=== PATIENT | female | born 1940 | race Caucasian/White ===

== ENCOUNTER → 2017-11-24 | Day surgery (SDC) | payer OTHER ==
[2017-11-07 15:52] VITALS: BMI 43.0
--- NOTE | 2017-11-10 09:23 | PAT Medication Instructions ---
Service Date Nov 10, 2017. Current Home Medication List Acetaminophen (Tylenol), 650 MG PO Q6 PRN for Pain Aspirin Enteric Coated (Ecotrin Or Generic), 81 MG PO DAILY Atorvastatin (Lipitor), 80 MG PO HS Cholecalciferol (Vitamin D 1000 Unit), 1,000 INTER.UNIT PO DAILY Citalopram Hydrobromide (Celexa), 20 MG PO DAILY Cyanocobalamin (Vitamin B12), 1 TAB PO QAM Ipratropium-Albuterol (Duoneb), 1 TREATMENT INH Q4H PRN for SOB/Wheezing Levothyroxine Sodium (Levothyroxine Sodium), 1 TAB PO QAM Metoprolol Succinate (Toprol Xl), 12.5 MG PO QAM Miconazole Nitrate (Desenex Shake Powder), 1 APPLN TOP UD Mirtazapine Soltab (Remeron Soltab), 7.5 MG PO HS Multivitamins/Minerals (Mvi With Minerals), 1 TAB PO DAILY Omeprazole (Prilosec), 1 CAP PO DAILY Rivastigmine Tartrate (Exelon), 1 PATCH TOP QAM Warfarin Sod (Jantoven), 2 MG PO MWF Warfarin Sodium (Coumadin), 1 MG PO SUN, T,R,SAT Medication Instructions For Your Scheduled Surgery -Instructions per PCP and surgeon: Aspirin Enteric Coated (Ecotrin Or Generic), 81 MG PO DAILY Warfarin Sod (Jantoven), 2 MG PO MWF Warfarin Sodium (Coumadin), 1 MG PO SUN, T,R,SAT - Hold the following medications 24 hours prior to surgery: Miconazole Nitrate (Desenex Shake Powder), 1 APPLN TOP UD - Take the following medications the morning of surgery with a sip of water: Acetaminophen (Tylenol), 650 MG PO Q6 PRN for Pain (if needed, may be taken up to four hours before surgery) Citalopram Hydrobromide (Celexa), 20 MG PO DAILY Cholecalciferol (Vitamin D 1000 Unit), 1,000 INTER.UNIT PO DAILY Cyanocobalamin (Vitamin B12), 1 TAB PO QAM Ipratropium-Albuterol (Duoneb), 1 TREATMENT INH Q4H PRN for SOB/Wheezing (if needed) Levothyroxine Sodium (Levothyroxine Sodium), 1 TAB PO QAM Metoprolol Succinate (Toprol Xl), 12.5 MG PO QAM Multivitamins/Minerals (Mvi With Minerals), 1 TAB PO DAILY Omeprazole (Prilosec), 1 CAP PO DAILY Rivastigmine Tartrate (Exelon), 1 PATCH TOP QAM - Take the following medications as scheduled the night before surgery: Acetaminophen (Tylenol), 650 MG PO Q6 PRN for Pain (if needed) Atorvastatin (Lipitor), 80 MG PO HS Ipratropium-Albuterol (Duoneb), 1 TREATMENT INH Q4H PRN for SOB/Wheezing (if needed) Mirtazapine Soltab (Remeron Soltab), 7.5 MG PO HS If you have any questions please call us at [phone] or [phone] or [phone]
[2017-11-10 10:17] LABS: BASO ABS # 0.08 K/uL (0-0.2); EOS % 8.3 %; HEMATOCRIT 34.9 % (37-47); HEMOGLOBIN 11.2 g/dL (12.0-16.0); IG# 0.01 K/uL (0.00-0.02); LYMPH % 28.7 %; LYMPH ABS # 2.41 K/uL (1.2-3.4); MEAN CELL VOLUME 96.1 fL (80-100); MEAN CORPUSCULAR HEMOGLOBIN 30.9 pg (25-34); MEAN CORPUSCULAR HGB CONC 32.1 g/dl (32-36); MEAN PLATELET VOLUME 10.2 fL (7.4-10.4); MONO % 7.4 %; MONO ABS # 0.62 K/uL (0.11-0.59); NEUT % 54.5 %; NEUT ABS # 4.59 K/uL (1.4-6.5); PLATELET COUNT 272 K/uL (130-400); RED CELL DISTRIBUTION WIDTH CV 14.9 % (11.5-14.5); RED CELL DISTRIBUTION WIDTH SD 51.5 fL (36.4-46.3); WHITE BLOOD COUNT 8.41 K/uL (4.8-10.8)
[2017-11-10 10:26] LABS: CALCIUM 8.5 mg/dl (8.5-10.1); CREATININE 2.49 mg/dl (0.60-1.20); POTASSIUM 4.5 mmol/L (3.5-5.1)
[~2017-11-24] VITALS: Ht 165.1 cm; Wt 117.6 kg
[~2017-11-24] MED LIST: ACET-1311 PO; ASPI-319 PO; ATOR-26 PO; CHOL100027 PO; CIPROFLOXACIN / D5W 400 MG IV SCH; CITA20TA9 PO; CYAN100020 PO; EXLP95 TOP; GENTAMICIN INJ 80 MG in DEXTROSE 5% 100ML 100 ML IV SCH; IPRA-64 INH; LEVO25TA5 PO; MCTP/85 TOP; METO25TA4 PO; MIRT15TA2 PO; MULTTAB PO; OMEP20CA9 PO; SODIUM CHLORIDE 0.9% 1000ML 1,000 ML IV SCH; WARF1TAB PO; WARF2TAB8 PO
--- NOTE | 2017-11-24 11:30 | History & Physical Bridge Note ---
H&P Re-Evaluation Bridge Note: I have examined the patient, reviewed the History & Physical and in the interval since the performance of the History & Physical I have noted the following changes of clinical significance: No changes noted
[2017-11-24 11:43] VITALS: BP 128/66; PULSE 70; TEMP 36.5; Ht 165.1 cm; Wt 117.6 kg
[2017-11-24 12:53] LABS: PTT PATIENT 41.1 SECONDS (21.0-31.0)
[2017-11-24 12:54] LABS: INR 4.2 (0.9-1.1)
--- NOTE | 2017-11-24 13:50 | Anesthesiology Progress Note ---
Anesthesia Progress Note Date of Service Nov 24, 2017. 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 She was scheduled for cysto/ureteronephroscopy, later lithotripsy and stent exchange with Dr. Wagoner today. She was admitted with septic shock and hydronephropsis secondary to an obstructive stone and the UVJ at the end of August. The patient has been on ASA and Coumadin for her atrial fibrillation and history of CVA. She was seen preoperatively by Dr. Altamirano at [facility] where she is a resident. He had placed specific orders for her Coumadin and ASA to be held one week before surgery and for her to be bridged with Lovenox. Unfortunately these orders were not carried out by the jail staff and her Coumadin has not been held. The patient's INR this am was 4.3. I spoke to the PA at [facility] and made her aware that the orders were not carried out. Dr. Wagoner was informed and has decided to reschedule surgery on one to two weeks. He stated that his office will again contact the jail to make sure they follow the orders next time. and I spoke to the patient and her daughter who is her POA and was at bedside and explained why the procedure was being rescheduled. They understand and were agreeable.
== END | disposition home or self-care (01) ==
LOC: C.ACU 10:54
PROVIDERS: ATTEND Urology
DX: N39.0 Urinary tract infection, site not specified (principal); Z53.9 Procedure and treatment not carried out, unspecified reason

== ENCOUNTER 2019-01-08 16:39 | Inpatient (IN) ==
[2019-01-08] MEDS ORDERED: SODIUM CHLORIDE 0.9% 500 ML IV SCH (17:00)
--- NOTE | 2019-01-08 17:20 | XRay Report ---
SINGLE VIEW CHEST CLINICAL HISTORY: Generalized weakness. FINDINGS: An AP, portable, upright chest radiograph is compared to study dated 12/02/2017 and correlat ed with chest CT dated 08/27/2017. The examination is degraded by portable technique and patient rotat ion. The heart is enlarged noting atherosclerotic calcification of the thoracic aorta. There is mild pulmonary vascular congestion. There are small pleural effusions with bibasilar consolidation. No pne umothorax is seen. The skeletal structures are osteopenic. The bony thorax is grossly intact. IMPRESSION: 1. Cardiomegaly with evidence of mild congestive failure. 2. Small pleural effusions with bibasilar consolidation. This could represent atelectasis versus pneu monia/aspiration pneumonitis. Clinical correlation will be required. Electronically signed by: Juan Ramon Rg M.D. 01/08/2019 5:19 PM
[2019-01-08 19:10] LABS: Basophils # (auto) 0.04 K/uL (0-0.2); Basophils % (auto) 0.4 %; Eosinophils # (auto) 0.14 K/uL (0-0.5); Eosinophils % (auto) 1.5 %; Hematocrit (blood only) 35.4 % (37-47); Hemoglobin 11.9 g/dL (12.0-16.0); Immature Granulocytes # (auto) 0.02 K/uL (0.00-0.02); Immature Granulocytes % (auto) 0.2 %; Mean Corpuscular Hemoglobin 31.9 pg (25-34); Mean Corpuscular Hgb Conc 33.6 g/dL (32-36); Mean Corpuscular Volume 94.9 fL (80-100); Mean Platelet Volume 9.6 fL (7.4-10.4); Monocytes # (auto) 0.77 K/uL (0.11-0.59); Monocytes % (auto) 8.1 %; Neutrophils # (auto) 6.78 K/uL (1.4-6.5); Neutrophils % (auto) 71.8 %; Platelet Count 214 K/uL (130-400); RDW Coefficient of Variation 13.6 % (11.5-14.5); RDW Standard Deviation 46.5 fL (36.4-46.3); Red Blood Count 3.73 M/uL (4.2-5.4); White Blood Count 9.45 K/uL (4.8-10.8)
[2019-01-08 19:27] LABS: Prothrombin Time 19.8 Seconds (9.0-12.0)
[2019-01-08 19:29] LABS: Alanine Aminotransferase 9 U/L (12-78); Aspartate Aminotransferase 10 U/L (15-37); BUN Creatinine Ratio 12.4 (10-20); Blood Urea Nitrogen 23 mg/dl (7-18); Calcium 8.4 mg/dl (8.5-10.1); Carbon Dioxide 27 mmol/L (21-32); Chloride 108 mmol/L (98-107); Creatinine Clr Calc Pharmacy 25.7 ml/min; Est GFR (African American) 28.5; Est GFR (Non-African American) 24.6; Glucose 79 mg/dl (70-99); Magnesium 1.7 mg/dl (1.8-2.4); Potassium 4.1 mmol/L (3.5-5.1); Sodium 141 mmol/L (136-145)
[2019-01-08 19:40] LABS: Albumin Globulin Ratio 0.4 (0.9-2); Alkaline Phosphatase 73 U/L (45-117); Bilirubin,Total 0.6 mg/dl (0.2-1); Globulin 4.7 gm/dl (2.5-4.0); Total Protein 6.7 gm/dl (6.4-8.2); Troponin I < 0.015 ng/ml (0-0.045)
[2019-01-08 19:54] LABS: T4 Free Thyroxine 1.15 ng/dl (0.8-1.6)
--- NOTE | 2019-01-08 20:20 | CT Scan Report ---
CT SCAN OF THE BRAIN WITHOUT IV CONTRAST CLINICAL HISTORY: Blurry vision. COMPARISON STUDY: CT of the brain dated 09/12/2017. TECHNIQUE: Unenhanced axial CT scan of the brain is performed from the vertex to the skull base. A do se lowering technique was utilized adhering to the principles of ALARA. CT DOSE: 1290.93 mGy.cm FINDINGS: Brain parenchyma: There are age-related involutional changes noting moderate to advanced subcortical and periventricular microangiopathic change. Foci of right frontal encephalomalacia are unchanged an d consistent with remote infarcts. A chronic lacunar infarct is present in the right cerebellar hemis phere. There is no hemorrhage, mass effect, or evidence of acute territorial ischemia by CT criteria. Bridges-white matter differentiation is preserved. No extra-axial fluid collection is seen. Ventricles, sulci, cisterns: Prominent secondary to involutional change. Intracranial vasculature: There is atherosclerotic calcification of the cavernous carotid and vertebr al arteries. Calvarium: Unremarkable. Sinuses and mastoids: The visualized paranasal sinuses are clear. There is a right mastoid effusion. The left mastoid air cells are well pneumatized. Orbits: The bony orbits are grossly intact. IMPRESSION: Senescent change and remote infarcts as above. There is no hemorrhage, mass effect, or ev idence of acute territorial ischemia by CT criteria. Electronically signed by: Juan Ramon Rg M.D. 01/08/2019 8:19 PM
--- NOTE | 2019-01-08 21:10 | CT Scan Report ---
CT SCAN OF THE CHEST WITHOUT IV CONTRAST CLINICAL HISTORY: Gagging with eating. Aspiration. COMPARISON STUDY: Chest x-ray dated 01/08/2019. Chest CT dated 08/27/2017 TECHNIQUE: CT scan of the thorax was performed from the thoracic inlet to the upper abdomen. Images are reviewed in the axial, sagittal, and coronal planes. IV contrast was not administered for this ex amination as per the referring clinician. A dose lowering technique was utilized adhering to the loren mitchell of BEATRIZ. The examination is degraded by streak artifact from the arms which could not be alycia vated above the chest as well as by motion artifact. FINDINGS: Thyroid: Atrophic. Thoracic aorta: There is atherosclerotic calcification of the thoracic aorta, which is normal in elsie lorne and demonstrates bovine variant arch anatomy. Heart: The heart is enlarged and without pericardial effusion. There are coronary artery calcificatio ns. The pulmonary trunk is dilated, measuring 3.5 cm in diameter. This suggests pulmonary artery hype rtension. Lungs and pleural spaces: Evaluation of the lung parenchyma is degraded by motion artifact. There are moderate left and small right pleural effusions with associated bibasilar consolidation. Associated pleural thickening suggests chronicity, and the left pleural effusion is at least partially loculated . The left pleural effusion has increased in size as compared to 08/27/2017. There is near complete at electasis of the left lower lobe. Patchy groundglass consolidation is seen throughout the right upper , right middle, and right lower lobes. Subpleural scarring/atelectasis is noted in the lingula. The t rachea is clear. Secretions are noted in the left mainstem bronchus and the left lower lobe bronchi. Mediastinum: There are mildly enlarged mediastinal lymph nodes. A pretracheal node on image #[id number] measu res 1.6 cm in short axis. A subcarinal node measures 2.0 cm in short axis. Chasidy: Not well assessed without IV contrast. Axillae: There is no axillary lymphadenopathy. Upper abdomen: The gallbladder is mildly distended and small calcified gallstones are suggested. Skeletal structures: The skeletal structures are osteopenic. Degenerative change and hyperkyphosis ar e noted in the thoracic spine. Arthritic change is seen in the shoulders. No lytic or blastic bony le sions are seen. There are healed bilateral rib fractures. IMPRESSION: 1. Streak and motion compromised examination. 2. Cardiomegaly. 3. There are small right and moderate left pleural effusions with bilateral atelectasis. Associated p leural thickening suggests chronicity. The the right pleural effusion is partially loculated, and has increased in size from 08/27/2017. The sterility of these effusions cannot be assessed by CT. 4. Patchy airspace consolidation is seen throughout the right lung, likely representing an infectious /inflammatory pneumonitis. Clinical correlation will be required. 5. Secretions are noted in the left mainstem bronchus in the left lower lobe airways. Aspiration is n ot excluded. 6. Additional findings as above. Electronically signed by: Juan Ramon Rg M.D. 01/08/2019 9:08 PM
[2019-01-08] MEDS ORDERED: metroNIDAZOLE 500 MG/100 ML BAG IV STA (21:18)
[2019-01-08] MEDS ORDERED: CEFEPIME 1,000 MG in SYRINGE 0 ML IV STA (21:18)
--- NOTE | 2019-01-08 23:37 | Emergency Department Note ---
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 Per the nursing staff, the patients daughter called EMS for generalized weakness. The patient states that she is usually non-ambulatory. She denies any abdominal pain, headache, chest pain, or weakness or numbness in her arms or legs. She reports that she has a cough and has had a loss of appetite. She mentions that she does not take any blood thinners. Daughter notes that she has been aspirating while eating for the past 24 hours. She also notes the patient has been complaining of some blurry vision although the patient notes that this is been present for the past year. Patient does admit to some shortness of breath. Home Medications Home Medications Medication Instructions Recorded Confirmed Type Prilosec OTC 20 mg PO QAM 12/13/17 01/08/19 History acetaminophen [Tylenol] 325 mg PO Q6H PRN 12/13/17 01/08/19 History atorvastatin [Lipitor] 80 mg PO HS 12/13/17 01/08/19 History cholecalciferol (vitamin D3) 1,000 unit PO QAM 12/13/17 01/08/19 History [Vitamin D3] citalopram 20 mg PO QAM 12/13/17 01/08/19 History cyanocobalamin (vitamin B-12) 1,000 mcg PO QAM 12/13/17 01/08/19 History [Vitamin B-12] levothyroxine [Synthroid] 25 mcg PO QAM 12/13/17 01/08/19 History metoprolol succinate 12.5 mg PO DAILY 12/13/17 01/08/19 History mirtazapine [Remeron] 7.5 mg PO HS 12/13/17 01/08/19 History multivitamin 1 tab PO QAM 12/13/17 01/08/19 History rivastigmine [Exelon] 1 patch TRANSDERMAL QAM 12/13/17 01/08/19 History ferrous sulfate 325 mg PO BID 01/08/19 01/08/19 History omeprazole 40 mg PO BID 01/08/19 01/08/19 History ondansetron 4 mg PO Q6H PRN 01/08/19 01/08/19 History warfarin 1 mg PO WK 01/08/19 01/08/19 History warfarin 2 mg PO 6XWK 01/08/19 01/08/19 History Allergies Allergy/AdvReac Type Severity Reaction Status Date / Time Bactrim Allergy Unknown PER [facility], Verified 11/24/17 11:37 NO RXN PROVIDED mivacurium Allergy Unknown RASH Verified 12/13/17 09:51 Penicillins Allergy Unknown PER [facility], Verified 12/15/17 05:49 NO RXN PROVIDED sulfamethoxazole Allergy Unknown PER [facility], Verified 12/15/17 05:49 NO RXN PROVIDED trimethoprim Allergy Unknown PER [facility], Verified 12/15/17 05:49 NO RXN PROVIDED azithromycin Allergy Unknown Verified 12/15/17 05:49 Cipro AdvReac Mild "DELIRIUM" Verified 11/24/17 11:37 ciprofloxacin AdvReac Mild "DELIRIUM" Verified 12/15/17 05:49 Past Med/Surg History Medical History Atrial fibrillation Bacteremia Cerebral infarction Chronic kidney disease Depression Diabetes 1.5, managed as type 2 Essential (primary) hypertension GERD (gastroesophageal reflux disease) Intracranial pyogenic abscess Obesity (BMI 30-39.9) Orthostatic hypotension Osteoarthritis Surgical History History of esophagogastroduodenoscopy (EGD) History of lithotripsy Social History Preferred Language: Vietnamese Communication Ability: Impaired Visual Impairment: No Limitations Service Delivery Analyst Required: No Beliefs That Will Affect Care: None Current Living Situation: [facility] Feels Safe at Home: Yes Smoking Status: Never smoker Hx Alcohol Use: No Hx Substance Use: No Review of Systems See HPI for pertinent positives & negatives. and A total of 10 systems reviewed and were otherwise negative Physical Exam Vital Signs Vital Signs - 24 hr 01/08/19 16:58 01/08/19 17:01 01/08/19 18:47 Temperature 36.9 C Temperature Source Oral Sepsis Recent Fever Within 48 Hours No Sepsis New/Unexplained Change in Mental Status No Sepsis Action Taken by Nursing No Action Required Pulse Rate 54 L Pulse Rate [Apical] 74 Respiratory Rate 18 18 Respiratory Effort / Characteristics Non-Labored Spontaneous Respiratory Depth Normal Blood Pressure 129/60 Blood Pressure [Left Arm] 143/46 H Blood Pressure Mean 83 Blood Pressure Mean [Left Arm] 78 Pulse Oximetry 97 97 97 Oxygen Delivery Method Room Air Room Air Room Air 01/08/19 20:17 01/08/19 22:56 Temperature Temperature Source Sepsis Recent Fever Within 48 Hours Sepsis New/Unexplained Change in Mental Status Sepsis Action Taken by Nursing Pulse Rate Pulse Rate [Apical] 60 61 Respiratory Rate 20 18 Respiratory Effort / Characteristics Non-Labored Spontaneous Respiratory Depth Normal Normal Blood Pressure Blood Pressure [Left Arm] 139/48 L 119/53 L Blood Pressure Mean Blood Pressure Mean [Left Arm] 78 75 Pulse Oximetry 95 97 Oxygen Delivery Method Room Air Room Air GENERAL: chronically-ill, disheveled, hard of hearing, wearing gown EYE EXAM: normal conjunctiva OROPHARYNX: no exudate, no erythema, lips, buccal mucosa, and tongue normal and mucous membranes are moist NECK: supple, no nuchal rigidity, no adenopathy, non-tender LUNGS: Diminished breath sounds with mild rhonchi bilateral bases. Normal chest wall mechanics HEART: no murmurs, S1 normal and S2 normal ABDOMEN: abdomen soft, non-tender, normo-active bowel sounds, no masses, no rebound or guarding. BACK: Back is symmetrical on inspection and there is no deformity, no midline tenderness, no CVA tenderness. SKIN: no rashes and no bruising UPPER EXTREMITIES: upper extremities are grossly normal. LOWER EXTREMITIES: No pitting edema. NEURO EXAM: Oriented to person, place, but not year, cranial nerves II-XII intact, normal speech. No focal deficits for upper or lower extremities, but weak with movement. Course ED COURSE: Vital signs were reviewed and showed normotensive. The patients medical record was reviewed The above diagnostic studies were performed and reviewed. ED treatments and interventions as stated above. 1648: The patient was evaluated in room B10. A complete history and physical examination was performed. 1999: I reevaluated the patient and updated her family on her results, the patient can tolerate fluid, but gags when eating. 2123: I discussed the patient's case with Dr. Vinnie Schwartz Hospitalist, he will accept the patient for further evaluation. 2125: Upon reevaluation, the patient is resting comfortably. I discussed my findings with the patient's family and they understand and agree with the treatment plan. Based on the patients age, coexisting illnesses, exam and lab findings the decision to treat as an inpatient was made. The patient remained stable while under my care. The patient will be evaluated for further management. Administered Medications Discontinued Medications Sodium Chloride (Nss) 500 mls @ 999 mls/hr IV .Q31M MIRIAN Stop: 01/08/19 17:30 Last Infusion: 01/08/19 18:59 Dose: 0 mls/hr Documented by: [id number] Admin: 01/08/19 18:27 Dose: 999 mls/hr Documented by: [id number] Metronidazole (Flagyl) 500 mg in 100 mls @ 100 mls/hr IV NOW STA Stop: 01/08/19 22:17 Last Admin: 01/08/19 21:36 Dose: 100 mls/hr Documented by: [id number] Cefepime HCl 1,000 mg/ Syringe 11.3 mls @ 5.5 mls/min IV NOW STA; Protocol Stop: 01/08/19 21:20 Last Admin: 01/08/19 21:36 Dose: 5.5 mls/min Documented by: [id number] Medical Decision Making Differential Diagnosis Differential Diagnosis includes but is not limited to dehydration, stroke, anemia, hypoglycemia, hyponatremia, hypernatremia, urinary tract infection, pneumonia, bronchitis, sepsis, gastroenteritis, additional abdominal pathology, metabolic abnormalities and infections. Medical Records Attestation: I reviewed the patient's medical records. Home Medications Current Medication List: was personally reviewed by me Laboratory Data Attestation: I reviewed the patient's lab results. Result diagrams: 01/08/19 18:56 01/08/19 18:56 Lab Results 01/08/19 01/08/19 01/08/19 Range/Units 17:40 18:56 18:56 WBC 9.45 (4.8-10.8) K/uL RBC 3.73 L (4.2-5.4) M/uL Hgb 11.9 L (12.0-16.0) g/dL Hct 35.4 L (37-47) % MCV 94.9 (80-100) fL MCH 31.9 (25-34) pg MCHC 33.6 (32-36) g/dL RDW Std Deviation 46.5 H (36.4-46.3) fL RDW Coeff of Ankit 13.6 (11.5-14.5) % Plt Count 214 (130-400) K/uL MPV 9.6 (7.4-10.4) fL Immature Gran % (Auto) 0.2 % Neut % (Auto) 71.8 % Lymph % (Auto) 18.0 % Rapides % (Auto) 8.1 % Eos % (Auto) 1.5 % Baso % (Auto) 0.4 % Immature Gran # (Auto) 0.02 (0.00-0.02) K/uL Neut # (Auto) 6.78 H (1.4-6.5) K/uL Lymph # (Auto) 1.70 (1.2-3.4) K/uL Rapides # (Auto) 0.77 H (0.11-0.59) K/uL Eos # (Auto) 0.14 (0-0.5) K/uL Baso # (Auto) 0.04 (0-0.2) K/uL PT 19.8 H (9.0-12.0) Seconds INR 2.0 H (0.9-1.1) Sodium (136-145) mmol/L Potassium (3.5-5.1) mmol/L Chloride (98-107) mmol/L Carbon Dioxide (21-32) mmol/L Anion Gap (3-11) BUN (7-18) mg/dl Creatinine (0.6-1.2) mg/dl Est Cr Clr Drug Dosing ml/min Est GFR ( Amer) Est GFR (Non-Af Amer) BUN/Creatinine Ratio (10-20) Glucose (70-99) mg/dl Calcium (8.5-10.1) mg/dl Magnesium (1.8-2.4) mg/dl Total Bilirubin (0.2-1) mg/dl AST (15-37) U/L ALT (12-78) U/L Alkaline Phosphatase (45-117) U/L Troponin I (0-0.045) ng/ml Total Protein (6.4-8.2) gm/dl Albumin (3.4-5.0) gm/dl Globulin (2.5-4.0) gm/dl Albumin/Globulin Ratio (0.9-2) TSH (0.300-4.500) uIu/ml Free T4 (0.8-1.6) ng/dl Influenza Type A Ag Neg for Influ A (Neg) Influenza Type B Ag Neg for Influ B (Neg) 01/08/19 Range/Units 18:56 WBC (4.8-10.8) K/uL RBC (4.2-5.4) M/uL Hgb (12.0-16.0) g/dL Hct (37-47) % MCV (80-100) fL MCH (25-34) pg MCHC (32-36) g/dL RDW Std Deviation (36.4-46.3) fL RDW Coeff of Ankit (11.5-14.5) % Plt Count (130-400) K/uL MPV (7.4-10.4) fL Immature Gran % (Auto) % Neut % (Auto) % Lymph % (Auto) % Rapides % (Auto) % Eos % (Auto) % Baso % (Auto) % Immature Gran # (Auto) (0.00-0.02) K/uL Neut # (Auto) (1.4-6.5) K/uL Lymph # (Auto) (1.2-3.4) K/uL Rapides # (Auto) (0.11-0.59) K/uL Eos # (Auto) (0-0.5) K/uL Baso # (Auto) (0-0.2) K/uL PT (9.0-12.0) Seconds INR (0.9-1.1) Sodium 141 (136-145) mmol/L Potassium 4.1 (3.5-5.1) mmol/L Chloride 108 H (98-107) mmol/L Carbon Dioxide 27 (21-32) mmol/L Anion Gap 6.0 (3-11) BUN 23 H (7-18) mg/dl Creatinine 1.89 H (0.6-1.2) mg/dl Est Cr Clr Drug Dosing 25.7 ml/min Est GFR ( Amer) 28.5 Est GFR (Non-Af Amer) 24.6 BUN/Creatinine Ratio 12.4 (10-20) Glucose 79 (70-99) mg/dl Calcium 8.4 L (8.5-10.1) mg/dl Magnesium 1.7 L (1.8-2.4) mg/dl Total Bilirubin 0.6 (0.2-1) mg/dl AST 10 L (15-37) U/L ALT 9 L (12-78) U/L Alkaline Phosphatase 73 (45-117) U/L Troponin I < 0.015 (0-0.045) ng/ml Total Protein 6.7 (6.4-8.2) gm/dl Albumin 2.0 L (3.4-5.0) gm/dl Globulin 4.7 H (2.5-4.0) gm/dl Albumin/Globulin Ratio 0.4 L (0.9-2) TSH 4.530 H (0.300-4.500) uIu/ml Free T4 1.15 (0.8-1.6) ng/dl Influenza Type A Ag (Neg) Influenza Type B Ag (Neg) Imaging Data Radiologist's Impression: Radiology results as stated below per my review and the radiologist's interpretation: SINGLE VIEW CHEST CLINICAL HISTORY: Generalized weakness. FINDINGS: An AP, portable, upright chest radiograph is compared to study dated 12/02/2017 and correlated with chest CT dated 08/27/2017. The examination is degraded by portable technique and patient rotation. The heart is enlarged noting atherosclerotic calcification of the thoracic aorta. There is mild pulmonary vascular congestion. There are small pleural effusions with bibasilar consolidation. No pneumothorax is seen. The skeletal structures are osteopenic. The bony thorax is grossly intact. IMPRESSION: 1. Cardiomegaly with evidence of mild congestive failure. 2. Small pleural effusions with bibasilar consolidation. This could represent atelectasis versus pneumonia/aspiration pneumonitis. Clinical correlation will be required. Electronically signed by: Juan Ramon Rg M.D. 01/08/2019 5:[address] SCAN OF THE CHEST WITHOUT IV CONTRAST CLINICAL HISTORY: Gagging with eating. Aspiration. COMPARISON STUDY: Chest x-ray dated 01/08/2019. Chest CT dated 08/27/2017 TECHNIQUE: CT scan of the thorax was performed from the thoracic inlet to the upper abdomen. Images are reviewed in the axial, sagittal, and coronal planes. IV contrast was not administered for this examination as per the referring clinician. A dose lowering technique was utilized adhering to the principles of ALARA. The examination is degraded by streak artifact from the arms which could not be elevated above the chest as well as by motion artifact. FINDINGS: Thyroid: Atrophic. Thoracic aorta: There is atherosclerotic calcification of the thoracic aorta, which is normal in caliber and demonstrates bovine variant arch anatomy. Heart: The heart is enlarged and without pericardial effusion. There are coronary artery calcifications. The pulmonary trunk is dilated, measuring 3.5 cm in diameter. This suggests pulmonary artery hypertension. Lungs and pleural spaces: Evaluation of the lung parenchyma is degraded by motion artifact. There are moderate left and small right pleural effusions with associated bibasilar consolidation. Associated pleural thickening suggests chronicity, and the left pleural effusion is at least partially loculated. The left pleural effusion has increased in size as compared to 08/27/2017. There is near complete atelectasis of the left lower lobe. Patchy groundglass consolidation is seen throughout the right upper, right middle, and right lower lobes. Subpleural scarring/atelectasis is noted in the lingula. The trachea is clear. Secretions are noted in the left mainstem bronchus and the left lower lobe bronchi. Mediastinum: There are mildly enlarged mediastinal lymph nodes. A pretracheal node on image #98 measures 1.6 cm in short axis. A subcarinal node measures 2.0 cm in short axis. Chasidy: Not well assessed without IV contrast. Axillae: There is no axillary lymphadenopathy. Upper abdomen: The gallbladder is mildly distended and small calcified gallstones are suggested. Skeletal structures: The skeletal structures are osteopenic. Degenerative change and hyperkyphosis are noted in the thoracic spine. Arthritic change is seen in the shoulders. No lytic or blastic bony lesions are seen. There are healed bilateral rib fractures. IMPRESSION: 1. Streak and motion compromised examination. 2. Cardiomegaly. 3. There are small right and moderate left pleural effusions with bilateral atelectasis. Associated pleural thickening suggests chronicity. The the right pleural effusion is partially loculated, and has increased in size from 08/27/2017. The sterility of these effusions cannot be assessed by CT. 4. Patchy airspace consolidation is seen throughout the right lung, likely representing an infectious/inflammatory pneumonitis. Clinical correlation will be required. 5. Secretions are noted in the left mainstem bronchus in the left lower lobe airways. Aspiration is not excluded. 6. Additional findings as above. Electronically signed by: Juan Ramon Rg M.D. 01/08/2019 9:[address] SCAN OF THE BRAIN WITHOUT IV CONTRAST CLINICAL HISTORY: Blurry vision. COMPARISON STUDY: CT of the brain dated 09/12/2017. TECHNIQUE: Unenhanced axial CT scan of the brain is performed from the vertex to the skull base. A dose lowering technique was utilized adhering to the principles of ALARA. CT DOSE: 1290.93 mGy.cm FINDINGS: Brain parenchyma: There are age-related involutional changes noting moderate to advanced subcortical and periventricular microangiopathic change. Foci of right frontal encephalomalacia are unchanged and consistent with remote infarcts. A chronic lacunar infarct is present in the right cerebellar hemisphere. There is no hemorrhage, mass effect, or evidence of acute territorial ischemia by CT criteria. Bridges-white matter differentiation is preserved. No extra-axial fluid collection is seen. Ventricles, sulci, cisterns: Prominent secondary to involutional change. Intracranial vasculature: There is atherosclerotic calcification of the cavernous carotid and vertebral arteries. Calvarium: Unremarkable. Sinuses and mastoids: The visualized paranasal sinuses are clear. There is a right mastoid effusion. The left mastoid air cells are well pneumatized. Orbits: The bony orbits are grossly intact. IMPRESSION: Senescent change and remote infarcts as above. There is no hemorrhage, mass effect, or evidence of acute territorial ischemia by CT criteria. Electronically signed by: Juan Ramon Rg M.D. 01/08/2019 8:19 PM ECG Data Attestation: I personally reviewed and interpreted this ECG as follows: Indication: weakness Rate (beats per minute): 53 Rhythm: atrial fibrillation Findings: + other (normal axis, septal p waves) Comparison ECG Date: no prior available Blood Pressure Blood Pressure Findings: Low blood pressure Blood Pressure Disposition: further management by hospitalist RADHA Narrative Patient is an 78-year-old female who presents the ER who was at home with family for inability to eat for the past 24 hours as she has been choking on her food. She is able to tolerate liquids per daughter. Patient does admit to also a persistent cough. IV was established blood work was obtained. Labs show no significant leukocytosis but mild anemia. INR was therapeutic at 2. BMP with a creatinine of 1.89 improved from previous with her baseline around 2. Magnesium was slightly low 1.7. No transaminitis. TSH was slightly elevated. Influenza was negative. Chest x-ray with questionable effusions and CT shows pneumonitis with loculated effusions which I cannot rule out being infected although I favor this is unlikely as she is currently not that ill. Patient was covered with IV antibiotics. She is updated bedside. Updated the daughter as well and patient was discussed with the hospitalist for evaluation. Impression & Plan Pneumonia, Aspiration into airway, Loculated pleural effusion, Shortness of breath Discharge Plan Visit Data Chief Complaint: Illness Stated Complaint: FAILURE TO THRIVE, COUGH ED Provider: Frank Perkins Discharge Problem: Pneumonia, Aspiration into airway, Loculated pleural effusion, Shortness of breath Patient Disposition: Being Evaluated by Hospitalist Forms Stand Alone Forms: [facility] Prescriptions Prescriptions: No Action multivitamin Tablet 1 tab PO QAM RF: 0 atorvastatin [Lipitor] 80 mg Tablet 80 mg PO HS RF: 0 acetaminophen [Tylenol] 325 mg Tablet 325 mg PO Q6H PRN (Reason: Pain) RF: 0 cyanocobalamin (vitamin B-12) [Vitamin B-12] 1,000 mcg Tablet 1,000 mcg PO QAM RF: 0 levothyroxine [Synthroid] 25 mcg Tablet 25 mcg PO QAM RF: 0 citalopram 20 mg Tablet 20 mg PO QAM RF: 0 mirtazapine [Remeron] 15 mg Tablet 7.5 mg PO HS RF: 0 Prilosec OTC 20 mg Tablet,Delayed Release (Dr/Ec) 20 mg PO QAM RF: 0 cholecalciferol (vitamin D3) [Vitamin D3] 1,000 unit Tablet 1,000 unit PO QAM RF: 0 rivastigmine [Exelon] 4.6 mg/24 hr Patch 24 Hour 1 patch TRANSDERMAL QAM RF: 0 metoprolol succinate 25 mg Capsule,Sprinkle,Er 24hr 12.5 mg PO DAILY RF: 0 omeprazole 40 mg capsule,delayed release(DR/EC) 40 mg PO BID RF: 0 ferrous sulfate 325 mg (65 mg iron) tablet 325 mg PO BID RF: 0 warfarin 1 mg tablet 1 mg PO WK RF: 0 warfarin 1 mg tablet 2 mg PO 6XWK RF: 0 ondansetron 4 mg Tablet,Disintegrating 4 mg PO Q6H PRN (Reason: Nausea) RF: 0 Referrals Referrals: Christiano Bill MD [Primary Care Provider] - Discharge Problem: Pneumonia Qualifiers: Pneumonia type: due to unspecified organism Laterality: right Lung location: unspecified part of lung Qualified Code(s): J18.9 - Pneumonia, unspecified organism Aspiration into airway Qualifiers: Encounter type: initial encounter Qualified Code(s): T17.908A - Unspecified foreign body in respiratory tract, part unspecified causing other injury, initial encounter The scribe's documentation has been prepared under my direction and personally reviewed by me in its entirety. I confirm that the note above accurately reflects all work, treatment, procedures, and medical decision making performed by me.
[2019-01-09] MEDS ORDERED: LEVALBUTEROL 1.25MG/0.5ML NEB NEB PRN (01:17)
[2019-01-09] MEDS ORDERED: NITROGLYCERIN SL 0.4 MG/TAB TAB SL PRN (01:17)
[2019-01-09] MEDS ORDERED: ONDANSETRON INJ 2 MG/ML 2 ML VIAL IV PRN (01:17)
[2019-01-09] MEDS ORDERED: ACETAMINOPHEN 325 MG TAB PO PRN (01:17)
[2019-01-09] MEDS ORDERED: SODIUM CHLORIDE 0.9% 1000ML 1,000 ML IV SCH (01:17)
[2019-01-09] MEDS: methylPREDNISolone 40 MG in SYRINGE 0 ML IV SCH ×2 (02:17→07:48)
[2019-01-09] MEDS: metroNIDAZOLE 500 MG/100 ML BAG IV SCH ×3 (05:34→20:53)
[2019-01-09 05:52] LABS: Basophils # (auto) 0.02 K/uL (0-0.2); Basophils % (auto) 0.2 %; Eosinophils # (auto) 0.02 K/uL (0-0.5); Eosinophils % (auto) 0.2 %; Hemoglobin 11.7 g/dL (12.0-16.0); Immature Granulocytes # (auto) 0.01 K/uL (0.00-0.02); Immature Granulocytes % (auto) 0.1 %; Lymphocytes # (auto) 0.88 K/uL (1.2-3.4); Mean Corpuscular Hgb Conc 32.5 g/dL (32-36); Mean Corpuscular Volume 95.5 fL (80-100); Mean Platelet Volume 9.7 fL (7.4-10.4); Monocytes # (auto) 0.13 K/uL (0.11-0.59); Monocytes % (auto) 1.6 %; Neutrophils # (auto) 6.97 K/uL (1.4-6.5); Neutrophils % (auto) 86.9 %; Platelet Count 218 K/uL (130-400); RDW Coefficient of Variation 13.6 % (11.5-14.5); Red Blood Count 3.77 M/uL (4.2-5.4); White Blood Count 8.03 K/uL (4.8-10.8)
[2019-01-09 05:57] LABS: INR 1.9 (0.9-1.1); Prothrombin Time 18.2 Seconds (9.0-12.0)
[2019-01-09 06:08] LABS: Estimated Average Glucose 114 mg/dl; Hemoglobin A1C 5.6 % (4.5-5.6)
[2019-01-09] MEDS: LEVOTHYROXINE SODIUM 25 MCG TABLET PO SCH (06:23)
[2019-01-09 06:27] LABS: BUN Creatinine Ratio 12.6 (10-20); Calcium 8.5 mg/dl (8.5-10.1); Creatinine Clr Calc Pharmacy 25.6 ml/min; Est GFR (African American) 28.4; Est GFR (Non-African American) 24.5; Magnesium 1.7 mg/dl (1.8-2.4); Potassium 4.4 mmol/L (3.5-5.1)
[2019-01-09 06:46] LABS: Appearance Urine Turbid (Clear); Bilirubin Urine Negative (Negative); Blood Urine 2+ (Negative); Color Urine Dark Yellow; Glucose Urine UA Negative (Negative); Ketones Urine Negative (Negative); Leukocyte Esterase Urine 3+ (Negative); Nitrite Urine Positive (Negative); Protein Urine 1+ (Negative); Specific Gravity Urine 1.018 (1.000-1.030); Urobilinogen Urine Negative (Negative); WBC Urine Automated >30 /hpf (0-5)
[2019-01-09 07:09] LABS: Bacteria Urine Automated 1+ (Negative)
[2019-01-09] MEDS: MAGNESIUM SULFATE / D5W 1 GM/100 ML BAG IV SCH ×2 (07:47→09:03)
[2019-01-09] MEDS: METOPROLOL SUCC 25MG EXT REL TAB PO SCH (07:55)
[2019-01-09] MEDS: CITALOPRAM 20 MG TAB PO SCH (07:56)
--- NOTE | 2019-01-09 07:57 | History and Physical Report ---
DATE OF ADMISSION: 01/09/2019 CHIEF COMPLAINT: Shortness of breath, cough, aspiration. HISTORY OF PRESENT ILLNESS: This is an 78-year-old female with past medical history significant for hemiplegia affecting the right dominant side, currently nonambulatory status. She needs lift and wheelchair. Lives with her daughter. Type 2 diabetes, not on any medications, hypothyroidism, chronic atrial fibrillation on Coumadin, hypertension, obesity, GERD, depression, who presents with cough, shortness of breath, and aspiration. As per the daughter, since last night she is making sound when she is breathing and she has occasional cough. She complains of shortness of breath. She has choked on food a couple of times yesterday and today in the morning, she once choked on the jello, so she was brought in here. Imaging studies showing possible aspiration pneumonitis. Currently, the patient is saturating okay on room air, hemodynamics are stable. Denies any headache. Denies any chest pain or shortness of breath. Has some cough. . Denies any abdominal pain. Normal bowel and bladder movements as per daughter. The patient is oriented to name and place only. Hard of hearing. No recent fever, chills. Could not get a complete review of systems from the patient. ALLERGIES: PENICILLIN, ZITHROMAX, BACTRIM. PAST MEDICAL HISTORY: As mentioned above. PAST SURGICAL HISTORY: EGD, ligation of oviducts. MEDICATIONS: The patient is on citalopram 20 mg p.o. daily, levothyroxine 25 mcg p.o. daily, Toprol-XL 12.5 mg p.o. daily, Coumadin 2 mg every week on Mondays, Wednesdays, and Fridays, all other days 1 mg, ferrous sulfate 325 mg p.o. b.i.d., omeprazole 40 mg p.o. b.i.d., Lipitor 80 mg p.o. daily, Remeron 15 mg p.o. at bedtime, vitamin D 1000 units p.o. daily, Tylenol 650 mg p.o. 4 hours p.r.n., vitamin B12 1000 mcg daily, multivitamin 1 tablet p.o. daily. FAMILY HISTORY: No family history on file. SOCIAL HISTORY: Currently living with her daughter. No smoking, no alcohol, no drug use. REVIEW OF SYSTEMS: Could not get complete review of systems. PHYSICAL EXAMINATION: GENERAL: The patient is alert and awake and oriented to name and place, not in acute distress. VITAL SIGNS: Temperature 36.9, pulse 63, respiratory rate 18, blood pressure 123/49, oxygen 98% on room air. HEENT: No pallor, no icterus. Pupils equal, round, and reactive to light. NECK: No JVD, no neck masses, no carotid bruits. CARDIOVASCULAR: S1, S2 heard, regular rate and rhythm, no murmur, no gallop. RESPIRATORY SYSTEM: Normal AP diameter. No accessory muscle use. Bilateral rhonchi heard. ABDOMEN: Soft, bowel sounds present, nontender. No distention. CENTRAL NERVOUS SYSTEM: Alert and oriented x2. Moves upper extremities. EXTREMITIES: No edema, no erythema. LABORATORY DATA: WBC 9.4, hemoglobin 11.9, hematocrit 35.4, platelet count 214. PT 19.8, INR 2. Sodium 141, potassium 4.1, chloride 108, bicarbonate 27, BUN 23, creatinine 1.89, serum glucose 79, calcium 8.4, magnesium 1.7, total bilirubin 0.6, AST 10, ALT 9, alkaline phosphatase 73, troponin I less than 0.015. TSH 4.5, free T4 1.1. Influenza negative. IMAGING DATA: CT of the head, no acute findings seen. Chest CT, small right and moderate left pleural effusions with bilateral atelectasis, pleural thickening suggests chronicity. Right pleural effusion is partially loculated and has increased in size from 08/27/2017. The sterility of these effusions cannot be assessed by CT. Patchy airspace consolidation is seen throughout the right lung, likely representing infectious inflammatory pneumonitis. Secretions are noted in the left mainstem bronchus in the left lower airways. Aspiration is not excluded. Chest x-ray, cardiomegaly with evidence of mild CHF, pleural effusions with bibasilar consolidation. EKG: Atrial fibrillation with slow ventricular response at a rate of 53, nonspecific T-wave abnormality seen. ASSESSMENT AND PLAN: This 78-year-old female presents with cough, shortness of breath, and possible aspiration pneumonitis. 1. Aspiration pneumonitis.ER started on cefepime and Flagyl, which she will continue and consult pulmonary medicine as patient has loculated pleural effusions. We will keep her n.p.o. for now. Gentle fluids. Consult speech therapy in the a.m. Closely monitor in the med/surg tele. Hemodynamics are stable. 2. History of diabetes, not on medication. Currently n.p.o. We will follow HbA1c level. 3. History of atrial fibrillation, rate controlled with Toprol-XL. INR is 2.0 Follow the Coumadin levels. 4. History of stroke with hemiplegia. She has dementia and mostly is wheelchair bound. Needs a lift for placing in the wheelchair. Patient is on high-dose statin and Coumadin. Will monitor. 5. Patient has iron deficiency, is on iron supplements. 6. History of gastroesophageal reflux disease, on Prilosec. 7. History of hypertension, on Toprol-XL. Will monitor the blood pressure. 8. History of hypothyroidism, on Synthroid. 9. History of depression, on Celexa and Remeron. 10. History of chronic kidney disease stage IV, baseline creatinine of 1.9, presents with a creatinine of 1.9. We will follow the labs. 11. Deep venous thrombosis prophylaxis, on Coumadin. 12. Disposition: Admit to med/surg tele. Level 1 full code as per my discussion with the daughter for now. Social service to help with discharge planning. MTDD
[2019-01-09] MEDS: MULTIVITAMIN TAB PO SCH (09:12)
[2019-01-09] MEDS: PANTOprazole 40 MG TAB PO SCH ×2 (09:12→20:55)
[2019-01-09] MEDS: FERROUS SULFATE 325 MG TAB PO SCH ×2 (09:12→20:54)
[2019-01-09] MEDS: MICONAZOLE NITRATE POWDER 43 GM EXT SCH ×2 (09:12→20:54)
[2019-01-09] MEDS: CYANOCOBALAMIN 500 MCG TABLET (VITAMIN B-12) PO SCH (09:13)
[2019-01-09] MEDS: CHOLECALCIFEROL 1,000 UNITS TAB PO SCH (09:13)
--- NOTE | 2019-01-09 13:44 | Fluoroscopy Report ---
FL video swallow HISTORY: Dysphagia. Aspiration. TECHNIQUE: Video fluoroscopic evaluation of swallowing was performed in the AP and lateral projection s by the speech pathology staff. The patient is fed thin liquid barium, nectar thick liquid, pudding, or cracker with paste.. FLUOROSCOPY TIME: 1.9 minutes. NUMBER OF FLUOROSCOPY IMAGES: 0 COMPARISON STUDY: September 2011 FINDINGS: When performing single with serial swallows utilizing thin liquid barium there was penetrat ion but no evidence for aspiration. There was no aspiration with swallowing nectar thick liquid puddi ng or cracker with paste. IMPRESSION: 1. Penetration when swallowing thin liquids, but no evidence of aspiration. 2. Please see the speech pathologist report for detailed findings and recommendations. Electronically signed by: Butch Mcnulty M.D. 01/09/2019 1:43 PM
[2019-01-09] MEDS: CEFEPIME 2,000 MG in SYRINGE 7.5 ML IV SCH (14:34)
--- NOTE | 2019-01-09 14:47 | Hospitalist Progress Note ---
Date of Service January 09, 2019 Assessment & Plan (1) Pneumonia: Bilateral pleural effusions suspected congestive heart failure -This 78-year-old female presents with cough, shortness of breath, and pneumonia vs pneumonitis with pleural effusions -admission CT chest: small right and moderate left pleural effusions with bilateral atelectasis. Associated pleural thickening suggests chronicity. The the right pleural effusion is partially loculated, and has increased in size from 08/27/2017. The sterility of these effusions cannot be assessed by CT.Patchy airspace consolidation is seen throughout the right lung, likely representing an infectious/inflammatory pneumonitis. -patient was started on cefepime and Flagyl because of concern for aspiration pneumonia or pneumonitis -continue empirically for now -patient had video fluoroscopy performed on 01/09/19 and did not appear to have acute aspiration identified -patient has been able to breathe on room air at home and in the hospital -discussed the case with pulmonary consult Dr. Hurtado and he recommended cardiac workup given elevated BNP on admission -will order echocardiogram, start Lasix 40 mg IV daily Obesity with BMI 33.8 History of stroke -at rest, patient is bedbound or mobilizes with wheelchair -on coumadin -on statin chronic atrial fibrillation Hypertension history -on telemetry -heart rate is bradycardic -blood pressure is controlled -on metoprolol -on coumadin chronic kidney disease stage IV -baseline creatinine of 1.9 -monitor renal function while on diuretic History of iron deficiency -on iron supplements. History of hypothyroidism -on levothyroxine History of diabetes -HbA1c is 5.6 and suggest normal glucose control History of gastroesophageal reflux disease -on Prilosec. History of depression -on Celexa and Remeron. Deep venous thrombosis prophylaxis, on Coumadin. Full Code Daughter [phone] Subjective Patient at is poor historian but no acute distress and breathing on room air and patient does not feel significantly short of breath. Daughter ([phone]) at beside reports main symptoms of cough and subjective shortness of breath with exertion. Patient's daughter was explained plans for IV antibiotic and diuretics to improve lung aeration from pneumonia vs pneumonitis and effusions. Patient's daughter denies that patient takes diuretics at home. Patient denies acute pain. no chest pain, no abdomen pain, no pain of extremities Physical Exam Constitutional: + obese Eyes: PERRL, conjunctivae normal, anicteric sclerae EOM intact bilaterally ENMT: external ear and nose normal, oropharynx normal Neck: normal visual inspection Respiratory: diminished lung sounds of left lungs due to congestion, diminished lung sounds of the bases Cardiovascular: Rate/Rhythm: regular rate and regular rhythm Gastrointestinal (Abdomen): normal bowel sounds, soft, nontender, no hepatosplenomegaly Musculoskeletal: Head/Neck/Chest: normocephalic and head atraumatic Neurologic: PERRL, EOMI, accommodation nl, no face palsy, no dysarthria Psychiatric: Orientation: alert and cooperative Results & Data Vital Signs (Past 12 Hours) Vital Signs Temp Pulse Resp BP BP Pulse Ox 01/09/19 10:58 36.6 C 56 L 20 143/83 H 97 01/09/19 07:56 36.5 C 75 18 120/78 94 01/09/19 04:00 36.9 C 62 20 118/76 93 (1) Pneumonia Laterality: right Lung location: unspecified part of lung Pneumonia type: due to unspecified organism Qualified Code(s): J18.9 - Pneumonia, unspecified organism
[2019-01-09] MEDS ORDERED: FUROSEMIDE 40 MG in SYRINGE 0 ML IV STA (15:16)
[2019-01-09] MEDS ORDERED: PERFLUTREN LIPID MICROSPHERE (DEFINITY) IV ONE (16:12)
[2019-01-09] MEDS: WARFARIN SOD 2 MG TAB PO SCH (16:46)
[2019-01-09] MEDS: MIRTAZAPINE TAB 15 MG TAB PO SCH (20:54)
[2019-01-09] MEDS: ATORVASTATIN 40 MG TAB PO SCH (20:55)
[2019-01-10] MEDS: metroNIDAZOLE 500 MG/100 ML BAG IV SCH ×2 (04:58→12:54)
[2019-01-10] MEDS: LEVOTHYROXINE SODIUM 25 MCG TABLET PO SCH (05:53)
[2019-01-10 06:36] LABS: Hemoglobin 11.4 g/dL (12.0-16.0); Immature Granulocytes # (auto) 0.03 K/uL (0.00-0.02); Immature Granulocytes % (auto) 0.3 %; Lymphocytes # (auto) 1.14 K/uL (1.2-3.4); Lymphocytes % (auto) 10.6 %; Mean Corpuscular Hemoglobin 31.4 pg (25-34); Mean Corpuscular Hgb Conc 33.5 g/dL (32-36); Mean Corpuscular Volume 93.7 fL (80-100); Mean Platelet Volume 9.7 fL (7.4-10.4); Monocytes # (auto) 0.51 K/uL (0.11-0.59); Monocytes % (auto) 4.7 %; Neutrophils # (auto) 9.06 K/uL (1.4-6.5); Neutrophils % (auto) 84.4 %; Platelet Count 224 K/uL (130-400); RDW Coefficient of Variation 13.3 % (11.5-14.5); RDW Standard Deviation 45.6 fL (36.4-46.3); Red Blood Count 3.63 M/uL (4.2-5.4); White Blood Count 10.74 K/uL (4.8-10.8)
[2019-01-10 06:47] LABS: Prothrombin Time 19.8 Seconds (9.0-12.0)
[2019-01-10 07:19] LABS: Albumin Globulin Ratio 0.4 (0.9-2); Albumin Level 1.9 gm/dl (3.4-5.0); Bilirubin,Total 0.4 mg/dl (0.2-1); Calcium 8.7 mg/dl (8.5-10.1); Creatinine Clr Calc Pharmacy 22.6 ml/min; Est GFR (African American) 25.4; Est GFR (Non-African American) 21.9; Globulin 4.7 gm/dl (2.5-4.0); Magnesium 2.2 mg/dl (1.8-2.4); Total Protein 6.6 gm/dl (6.4-8.2)
[2019-01-10] MEDS: METOPROLOL SUCC 25MG EXT REL TAB PO SCH (08:04)
[2019-01-10] MEDS: CYANOCOBALAMIN 500 MCG TABLET (VITAMIN B-12) PO SCH (08:04)
[2019-01-10] MEDS: FUROSEMIDE 40 MG in SYRINGE 0 ML IV SCH (08:04)
[2019-01-10] MEDS: PANTOprazole 40 MG TAB PO SCH ×2 (08:05→19:36)
[2019-01-10] MEDS: FERROUS SULFATE 325 MG TAB PO SCH ×2 (08:05→19:35)
[2019-01-10] MEDS: CITALOPRAM 20 MG TAB PO SCH (08:05)
[2019-01-10] MEDS: MULTIVITAMIN TAB PO SCH (08:05)
[2019-01-10] MEDS: MICONAZOLE NITRATE POWDER 43 GM EXT SCH ×2 (08:05→19:34)
[2019-01-10] MEDS: CHOLECALCIFEROL 1,000 UNITS TAB PO SCH (08:05)
[2019-01-10] MEDS: CEFEPIME 2,000 MG in SYRINGE 7.5 ML IV SCH (14:59)
--- NOTE | 2019-01-10 15:10 | Hospitalist Progress Note ---
Date of Service January 10, 2019 Assessment & Plan (1) Aspiration pneumonia: On Cefepime and Flagyl. She is tolerating this well and will plan to transition to clindamycin. Video swallow study this admission revealed penetration with swallowing thin liquids but otherwise no evidence of aspi ration. Cont regular diet with no modifications-appreciate speech path recs. (2) Pleural effusion: Pleural effusions are bilateral and appear chronic with chronic thickening as a result. There is an area that appears to be loculation, however this appears to be chronic thickening of the pleural tissue. The image was reviewed with the unix engineer who does not feel any thoracentesis is necessary. The patient is clinically doing better. Plan to follow-up as outpatient with primary care provider. She continues on Lasix daily. (3) Dementia: At baseline and she is functional. May resume Exelon patch at discharge. (4) Chronic atrial fibrillation: continue metoprolol for rate control. She is intermittent coagulated on Coumadin. (5) CKD (chronic kidney disease), stage IV: Around her baseline. Continue to avoid nephrotoxic substances. (6) H/O: stroke with residual effects: Residual right-sided hemiplegia with no new deficits. Some possible receptive aphasia but she is oriented and answering questions appropriately. Again this is at her baseline. (7) Depression: Continue home dose of Celexa and Remeron (8) DVT prophylaxis: Coumadin Full code Disposition-to home in a.[facility] Subjective appears clinically improved to daughter who is explosive operator bomb and is at bedside today afebrile and tolerating PO Review of Systems Review of Systems: All systems reviewed & are unremarkable except as noted in HPI & below Physical Exam Physical Exam: CONSTITUTIONAL: elderly, frail, limited mobility and generalized stiffness of limbs post-stroke, delayed reaction time which is at baseline post-stroke. EYES: normal conjunctivae, no scleral icterus ENT: MMM RESPIRATORY: clear to auscultation bilaterally, no crackles, rales or wheezes, normal respiratory effort CARDIOVASCULAR: regular rate and rhythm, S1 and 2 heard without murmurs, gallops or rubs, no JVD, no peripheral edema GASTROINTESTINAL: normal bowel sounds, soft, nondistended, nontender MUSCULOSKELETAL: strength 5/5 throughout, head is normocephalic and atraumatic, neck supple, normal palpation of chest wall without tenderness SKIN: warm and dry NEUROLOGIC: no gross focal deficits with residual hemiplegia noted. PSYCHIATRIC: alert cooperative and oriented, answering questions appropriately Results & Data Vital Signs (Past 12 Hours) Vital Signs Temp Pulse Pulse Resp BP Pulse Ox 01/10/19 11:28 96 01/10/19 11:07 34.0 C L 42 L 18 94/47 L 99 01/10/19 08:20 45 L 01/10/19 07:56 34.7 C L 48 L 16 128/72 98 01/10/19 04:30 36.4 C L 68 19 137/75 98 Laboratory Results Short CBC 01/10/19 Range/Units 06:19 WBC 10.74 (4.8-10.8) K/uL Hgb 11.4 L (12.0-16.0) g/dL Hct 34.0 L (37-47) % Plt Count 224 (130-400) K/uL BMP 01/10/19 06:19 Sodium 139 Potassium 4.0 Chloride 107 Carbon Dioxide 26 BUN 31 H Creatinine 2.08 H Glucose 142 H Calcium 8.7 Liver Function 01/10/19 Range/Units 06:19 Total Bilirubin 0.4 (0.2-1) mg/dl AST 11 L (15-37) U/L ALT 8 L (12-78) U/L Alkaline Phosphatase 71 (45-117) U/L Albumin 1.9 L (3.4-5.0) gm/dl Medications Administered Current Inpatient Medications Acetaminophen (Tylenol) 650 mg PO Q4H PRN PRN Reason: Pain or Fever Stop: 02/08/19 01:16 Atorvastatin Calcium (Lipitor) 80 mg PO HS MIRIAN Stop: 02/08/19 20:59 Last Admin: 01/09/19 20:55 Dose: 80 mg Documented by: Citalopram Hydrobromide (Celexa) 20 mg PO QAM [facility] Stop: 02/08/19 08:59 Last Admin: 01/10/19 08:05 Dose: 20 mg Documented by: Cyanocobalamin (Vitamin B-12) 1,000 mcg PO QAM [facility] Stop: 02/08/19 08:59 Last Admin: 01/10/19 08:04 Dose: 1,000 mcg Documented by: Ferrous Sulfate (Feosol) 325 mg PO BID [facility]IAN Stop: 02/08/19 08:59 Last Admin: 01/10/19 08:05 Dose: 325 mg Documented by: Metronidazole (Flagyl) 500 mg in 100 mls @ 100 mls/hr IV Q8H REPLACED BY [facility]; Protocol Stop: 01/16/19 04:59 Last Infusion: 01/10/19 13:59 Dose: Infused Documented by: Cefepime HCl 2,000 mg/ Syringe 20 mls @ 5.5 mls/min IV Q24H REPLACED BY [facility]; Protocol Stop: 01/16/19 14:59 Last Admin: 01/10/19 14:59 Dose: 5.5 mls/min Documented by: Furosemide 40 mg/ Syringe 4 mls @ 4 mls/min IV DAILY MIRIAN Stop: 02/09/19 08:59 Last Admin: 01/10/19 08:04 Dose: 4 mls/min Documented by: Levalbuterol HCl (Xopenex 1.25mg/0.5ml Neb) 1.25 mg NEB Q6R PRN PRN Reason: Shortness Of Breath Or Wheezing Stop: 02/08/19 01:16 Levothyroxine Sodium (Synthroid) 25 mcg PO DAILYBB REPLACED BY [facility] Stop: 02/08/19 06:29 Last Admin: 01/10/19 05:53 Dose: 25 mcg Documented by: Metoprolol Succinate (Toprol Xl) 12.5 mg PO DAILY MIRIAN Stop: 02/08/19 08:59 Last Admin: 01/10/19 08:04 Dose: 12.5 mg Documented by: Miconazole Nitrate (Desenex) 1 appln EXT BID REPLACED BY [facility] Stop: 02/08/19 08:59 Last Admin: 01/10/19 08:05 Dose: 1 appln Documented by: Mirtazapine (Remeron) 7.5 mg PO HS REPLACED BY [facility] Stop: 02/08/19 20:59 Last Admin: 01/09/19 20:54 Dose: 7.5 mg Documented by: Multivitamins (Multivitamin Tab) 1 tab PO QAM REPLACED BY [facility] Stop: 02/08/19 08:59 Last Admin: 01/10/19 08:05 Dose: 1 tab Documented by: Nitroglycerin (Nitrostat) 0.4 mg SL UD PRN PRN Reason: Chest Pain Stop: 02/08/19 01:16 Ondansetron HCl (Zofran) 4 mg IV Q6H PRN PRN Reason: Nausea Stop: 02/08/19 01:16 Pantoprazole Sodium (Protonix) 40 mg PO BID REPLACED BY [facility]; Protocol Stop: 02/08/19 08:59 Last Admin: 01/10/19 08:05 Dose: 40 mg Documented by: Vitamin D (Vitamin D3) 1,000 units PO QAM REPLACED BY [facility] Stop: 02/08/19 08:59 Last Admin: 01/10/19 08:05 Dose: 1,000 units Documented by: Warfarin Sodium (Coumadin) 1 mg PO Dupree@1600 REPLACED BY [facility] Stop: 02/13/19 15:59 Warfarin Sodium (Coumadin) 2 mg PO MoTuWeThFrSa@1600 REPLACED BY [facility] Stop: 02/08/19 15:59 Last Admin: 01/09/19 16:46 Dose: 2 mg Documented by:
[2019-01-10] MEDS: WARFARIN SOD 2 MG TAB PO SCH (16:50)
[2019-01-10] MEDS: ATORVASTATIN 40 MG TAB PO SCH (19:36)
[2019-01-10] MEDS: MIRTAZAPINE TAB 15 MG TAB PO SCH (19:37)
[2019-01-10] MEDS: CLINDAMYCIN HCL 150 MG CAP PO SCH (21:33)
[2019-01-11] MEDS: CLINDAMYCIN HCL 150 MG CAP PO SCH ×4 (05:58→22:49)
[2019-01-11] MEDS: LEVOTHYROXINE SODIUM 25 MCG TABLET PO SCH (05:59)
[2019-01-11 06:18] LABS: INR 1.9 (0.9-1.1); Prothrombin Time 18.9 Seconds (9.0-12.0)
[2019-01-11 06:47] LABS: BUN Creatinine Ratio 15.5 (10-20); Calcium 8.6 mg/dl (8.5-10.1); Creatinine Clr Calc Pharmacy 21.8 ml/min; Est GFR (African American) 24.3
[2019-01-11] MEDS: CYANOCOBALAMIN 500 MCG TABLET (VITAMIN B-12) PO SCH (08:37)
[2019-01-11] MEDS: MULTIVITAMIN TAB PO SCH (08:38)
[2019-01-11] MEDS: PANTOprazole 40 MG TAB PO SCH ×2 (08:38→20:17)
[2019-01-11] MEDS: CHOLECALCIFEROL 1,000 UNITS TAB PO SCH (08:38)
[2019-01-11] MEDS: MICONAZOLE NITRATE POWDER 43 GM EXT SCH ×2 (08:39→20:15)
[2019-01-11] MEDS: FERROUS SULFATE 325 MG TAB PO SCH ×3 (08:39→22:50)
[2019-01-11] MEDS: CITALOPRAM 20 MG TAB PO SCH (08:39)
[2019-01-11] MEDS: FUROSEMIDE 40 MG in SYRINGE 0 ML IV SCH (08:40)
[2019-01-11 09:47] LABS: Magnesium 2.1 mg/dl (1.8-2.4); Potassium 3.8 mmol/L (3.5-5.1)
--- NOTE | 2019-01-11 15:01 | Hospitalist Progress Note ---
Date of Service January 11, 2019 Assessment & Plan (1) Aspiration pneumonia: Cefepime and Flagyl transition to p.o. clindamycin with no decompensation overnight. She is tolerating this well and will continue to complete the course. Video swallow study this admission revealed penetration with swallowing thin liquids but otherwise no evidence of aspiration. The speech pathologist discussed the case with her daughter and textile technical officer today who was more concerned about her risk of aspiration and explained to her that complete aspiration prevention is not possible. Speech pathology discharge instructions will be included in the take-home packet. Notably the patient is not feeling she has an issue. (2) Pleural effusion: Pleural effusions are bilateral and appear chronic with chronic thickening as a result. There is an area that appears to be loculation, however this appears to be chronic thickening of the pleural tissue. The image was reviewed with the cow tester who does not feel any thoracentesis is necessary. The patient is clinically doing better. Plan to follow-up as outpatient with primary care provider. She continues on Lasix daily. (3) Dementia: At baseline and she is functional. May resume Exelon patch at discharge. (4) Chronic atrial fibrillation: continue metoprolol for rate control. She is intermittent coagulated on Coumadin. (5) CKD (chronic kidney disease), stage IV: Around her baseline. Continue to avoid nephrotoxic substances. (6) H/O: stroke with residual effects: Residual right-sided hemiplegia with no new deficits. Some possible receptive aphasia but she is oriented and answering questions appropriately. Again this is at her baseline. (7) Depression: Continue home dose of Celexa and Remeron (8) DVT prophylaxis: Coumadin Full code Disposition-to home in a.[facility] Subjective Patient is feeling well today. Clinically appears similar to yesterday. She is tolerating p.o., however daughter feels her swallowing ability has declined since yesterday. At baseline the patient has issues with swallowing even prior to her stroke. However out of concern for this, her daughter and textile technical officer would like her to stay an additional day for monitoring. I engaged with speech pathology who discussed the case with the daughter and answered all questions. Daughter also reports the patient has had some decreased visual acuity in her right eye. The patient states this is blurry. She denies any eye pain. There is no eye redness present or discharge present. This has been going on for several days to weeks. Outpatient ophthalmology visit was recommended. Review of Systems Review of Systems: All systems reviewed & are unremarkable except as noted in HPI & below Physical Exam Physical Exam: CONSTITUTIONAL: elderly, frail, limited mobility and generalized stiffness of limbs post-stroke, delayed reaction time which is at baseline post-stroke. EYES: normal conjunctivae, no scleral icterus ENT: MMM RESPIRATORY: clear to auscultation bilaterally, no crackles, rales or wheezes, normal respiratory effort CARDIOVASCULAR: regular rate and rhythm, S1 and 2 heard without murmurs, ga llops or rubs, no JVD, no peripheral edema GASTROINTESTINAL: normal bowel sounds, soft, nondistended, nontender MUSCULOSKELETAL: strength 5/5 throughout, head is normocephalic and atraumatic, neck supple, normal palpation of chest wall without tenderness SKIN: warm and dry NEUROLOGIC: no gross focal deficits PSYCHIATRIC: alert cooperative and oriented, answering questions appropriately Results & Data Vital Signs (Past 12 Hours) Vital Signs Temp Pulse Resp BP Pulse Ox 01/11/19 07:17 36.4 C L 76 16 107/57 L 95 Laboratory Results BMP 01/11/19 01/11/19 01/11/19 05:47 06:59 08:43 Sodium 140 Potassium Cancelled 3.8 Chloride 106 Carbon Dioxide 29 BUN 33 H Creatinine 2.16 H Glucose 115 H Calcium 8.6 Medications Administered Current Inpatient Medications Acetaminophen (Tylenol) 650 mg PO Q4H PRN PRN Reason: Pain or Fever Stop: 02/08/19 01:16 Artificial Tears (Artificial Tears) 2 drops OPB QID MIRIAN Stop: 02/10/19 16:59 Atorvastatin Calcium (Lipitor) 80 mg PO HS MIRIAN Stop: 02/08/19 20:59 Last Admin: 01/10/19 19:36 Dose: 80 mg Documented by: Citalopram Hydrobromide (Celexa) 20 mg PO QAM [facility]IAN Stop: 02/08/19 08:59 Last Admin: 01/11/19 08:39 Dose: 20 mg Documented by: Clindamycin HCl (Cleocin) 300 mg PO Q8 [facility] Stop: 01/17/19 21:59 Last Admin: 01/11/19 13:08 Dose: 300 mg Documented by: Cyanocobalamin (Vitamin B-12) 1,000 mcg PO QAM [facility] Stop: 02/08/19 08:59 Last Admin: 01/11/19 08:37 Dose: 1,000 mcg Documented by: Ferrous Sulfate (Feosol) 325 mg PO BID [facility] Stop: 02/08/19 08:59 Last Admin: 01/11/19 08:39 Dose: 325 mg Documented by: Furosemide 40 mg/ Syringe 4 mls @ 4 mls/min IV DAILY [facility]IRIAN Stop: 02/09/19 08:59 Last Admin: 01/11/19 08:40 Dose: 4 mls/min Documented by: Levalbuterol HCl (Xopenex 1.25mg/0.5ml Neb) 1.25 mg NEB Q6R PRN PRN Reason: Shortness Of Breath Or Wheezing Stop: 02/08/19 01:16 Levothyroxine Sodium (Synthroid) 25 mcg PO DAILYBB [facility] Stop: 02/08/19 06:29 Last Admin: 01/11/19 05:59 Dose: 25 mcg Documented by: Metoprolol Succinate (Toprol Xl) 12.5 mg PO DAILY [facility] Stop: 02/08/19 08:59 Last Admin: 01/10/19 08:04 Dose: 12.5 mg Documented by: Miconazole Nitrate (Desenex) 1 appln EXT BID [facility] Stop: 02/08/19 08:59 Last Admin: 01/11/19 08:39 Dose: 1 appln Documented by: Mirtazapine (Remeron) 7.5 mg PO HS [facility] Stop: 02/08/19 20:59 Last Admin: 01/10/19 19:37 Dose: 7.5 mg Documented by: Multivitamins (Multivitamin Tab) 1 tab PO QAM [facility] Stop: 02/08/19 08:59 Last Admin: 01/11/19 08:38 Dose: 1 tab Documented by: Nitroglycerin (Nitrostat) 0.4 mg SL UD PRN PRN Reason: Chest Pain Stop: 02/08/19 01:16 Ondansetron HCl (Zofran) 4 mg IV Q6H PRN PRN Reason: Nausea Stop: 02/08/19 01:16 Pantoprazole Sodium (Protonix) 40 mg PO BID [facility]; Protocol Stop: 02/08/19 08:59 Last Admin: 10/10/19 08:38 Dose: 40 mg Documented by: Vitamin D (Vitamin D3) 1,000 units PO QAM [facility] Stop: 02/08/19 08:59 Last Admin: 01/11/19 08:38 Dose: 1,000 units Documented by: Warfarin Sodium (Coumadin) 1 mg PO Dupree@1600 [facility] Stop: 02/13/19 15:59 Warfarin Sodium (Coumadin) 2 mg PO [id number]@1600 [facility] Stop: 02/08/19 15:59 Last Admin: 01/10/19 16:50 Dose: 2 mg Documented by:
[2019-01-11] MEDS: WARFARIN SOD 2 MG TAB PO SCH (16:21)
[2019-01-11] MEDS: ARTIFICIAL TEARS OPB SCH ×2 (18:49→20:15)
[2019-01-11] MEDS: ATORVASTATIN 40 MG TAB PO SCH (20:16)
[2019-01-11] MEDS: MIRTAZAPINE TAB 15 MG TAB PO SCH (20:16)
[2019-01-12] MEDS: LEVOTHYROXINE SODIUM 25 MCG TABLET PO SCH (05:31)
[2019-01-12] MEDS: CLINDAMYCIN HCL 150 MG CAP PO SCH ×2 (05:31→12:53)
[2019-01-12 07:10] LABS: INR 2.3 (0.9-1.1); Prothrombin Time 21.9 Seconds (9.0-12.0)
[2019-01-12] MEDS: MICONAZOLE NITRATE POWDER 43 GM EXT SCH (07:57)
[2019-01-12] MEDS: CITALOPRAM 20 MG TAB PO SCH (07:57)
[2019-01-12] MEDS: PANTOprazole 40 MG TAB PO SCH (07:57)
[2019-01-12] MEDS: MULTIVITAMIN TAB PO SCH (07:57)
[2019-01-12] MEDS: FERROUS SULFATE 325 MG TAB PO SCH (07:57)
[2019-01-12] MEDS: FUROSEMIDE 40 MG in SYRINGE 0 ML IV SCH (07:58)
[2019-01-12] MEDS: CHOLECALCIFEROL 1,000 UNITS TAB PO SCH (07:58)
[2019-01-12] MEDS: CYANOCOBALAMIN 500 MCG TABLET (VITAMIN B-12) PO SCH (07:58)
[2019-01-12] MEDS: ARTIFICIAL TEARS OPB SCH ×2 (08:00→12:14)
--- NOTE | 2019-01-12 12:47 | Discharge Summary ---
Date of Service January 12, 2019 Admission HPI Per Admitting Provider HISTORY OF PRESENT ILLNESS: This is an 78-year-old female with past medical history significant for hemiplegia affecting the right dominant side, currently nonambulatory status. She needs lift and wheelchair. Lives with her daughter. Type 2 diabetes, not on any medications, hypothyroidism, chronic atrial fibrillation on Coumadin, hypertension, obesity, GERD, depression, who presents with cough, shortness of breath, and aspiration. As per the daughter, since last night she is making sound when she is breathing and she has occasional cough. She complains of shortness of breath. She has choked on food a couple of times yesterday and today in the morning, she once choked on the jello, so she was brought in here. Imaging studies showing possible aspiration pneumonitis. Currently, the patient is saturating okay on room air, hemodynamics are stable. Denies any headache. Denies any chest pain or shortness of breath. Has some cough. . Denies any abdominal pain. Normal bowel and bladder movements as per daughter. The patient is oriented to name and place only. Hard of hearing. No recent fever, chills. Could not get a complete review of systems from the patient Admission Exam Per Admitting Provider PHYSICAL EXAMINATION: GENERAL: The patient is alert and awake and oriented to name and place, not in acute distress. VITAL SIGNS: Temperature 36.9, pulse 63, respiratory rate 18, blood pressure 123/49, oxygen 98% on room air. HEENT: No pallor, no icterus. Pupils equal, round, and reactive to light. NECK: No JVD, no neck masses, no carotid bruits. CARDIOVASCULAR: S1, S2 heard, regular rate and rhythm, no murmur, no gallop. RESPIRATORY SYSTEM: Normal AP diameter. No accessory muscle use. Bilateral rhonchi heard. ABDOMEN: Soft, bowel sounds present, nontender. No distention. CENTRAL NERVOUS SYSTEM: Alert and oriented x2. Moves upper extremities. EXTREMITIES: No edema, no erythema. Principal Diagnosis Aspiration pneumonia Pleural effusion CKD stage IV History of stroke with residual deficits including dysphagia Discharge Data Allergies Allergy/AdvReac Type Severity Reaction Status Date / Time Bactrim Allergy Unknown PER ECF, Verified 11/24/17 11:37 NO RXN PROVIDED mivacurium Allergy Unknown RASH Verified 12/13/17 09:51 Penicillins Allergy Unknown PER ECF, Verified 12/15/17 05:49 NO RXN PROVIDED sulfamethoxazole Allergy Unknown PER ECF, Verified 12/15/17 05:49 NO RXN PROVIDED trimethoprim Allergy Unknown PER ECF, Verified 12/15/17 05:49 NO RXN PROVIDED azithromycin Allergy Unknown Verified 12/15/17 05:49 Cipro AdvReac Mild "DELIRIUM" Verified 11/24/17 11:37 ciprofloxacin AdvReac Mild "DELIRIUM" Verified 12/15/17 05:49 Consultations 01/08/19 21:21 ED Decision to Admit Stat 01/09/19 01:17 Consult Case Management - Discharge Planning Routine Ordered Studies 01/08/19 20:00 CT chest wo con Stat CT head/brain wo con Stat 01/09/19 12:30 FL video swallow Routine Hospital Course (1) Aspiration pneumonia: (2) Pleural effusion: (3) Chronic atrial fibrillation: (4) H/O: stroke with residual effects: 78-year-old female presented with wheezing and a cough after a witnessed choking event per daughter at home. She was admitted to the hospitalist service and placed on treatment for aspiration pneumonia including cefepime and Flagyl. She was noted to have loculated pleural effusions on CT scan and this was discussed with the special population paraprofessional. who reviewed the image. This was felt to be inconsistent with an empyema and more consistent with chronic thickening of the pleural tissue secondary to chronic pleural effusions. She improved fairly quickly. Blood cultures were negative. She had a history of stroke with chronic right hemiplegia and dysphagia, however, regarding recent aspiration and concern this may be worsening, speech path consult was requested and a video swallow study was performed. This revealed penetration with swallowing thin liquids but no evidence of aspiration. The speech pathologist had a discussion with the daughter and advised her that complete prevention of aspiration is impossible, and educated on ways to prevent this. No diet modifications were recommended. A urine culture revealed Gardnerella-like bacteria. The patient denied any symptoms of vaginitis, strange odor or discharge. Therefore, Flagyl was not continued. However, the daughter was advised that if the symptoms do present to contact her primary care doctor for consideration of antibiotic therapy. At time of discharge the patient was hemodynamically stable and afe brile and was mentating at baseline. She is bedbound at baseline and moving extremities at baseline. She was tolerating PO. Physical exam was otherwise unremarkable. Close follow-up with primary care was recommended for follow-up of chronic pleural effusions, to ensure no vaginal symptoms are becoming a concern, to ensure she is handling the clindamycin without issue, and to monitor blood pressure and heart rate. As a result of relative hypotension and bradycardia throughout majority of her hospitalization, her metoprolol was discontinued at discharge. Home health for speech therapy, PT and OT was also ordered at discharge. Total Time Total Time Spent Total Time Spent (In Minutes): 60 Total Time Includes: Examination of the Patient, Discharge Planning, Medication Reconciliation and Communication With Other Providers Discharge Plan Discharge Items Patient Disposition: Home - Home Health Services Reason For Visit: SOB, ASPIRATION Discharge Diagnosis: Aspiration pneumonia Pleural effusion CKD stage IV History of stroke with residual deficits including dysphagia Condition on Discharge: Good Activity: Resume your previous activity Non-emergency contact: Primary Care Provider Call non-emergency contact if: you have any medication questions, your symptoms worsen, your pain is not controlled, your pain is worsening, your pain is unusual for you, your pain is concerning for you and you have a fever Follow-up/Referrals: Christiano Bill MD [Primary Care Provider] - Diet: Heart Healthy Addtl Attending Provider Instructions: Please take all medications as instructed on discharge list below. Home Health services have been requested for Speech Therapy, Physical Therapy and Occupational Therapy upon returning home. You were found to have Garnerella bacteria in your urine in a small concentration. Treatment with an antibiotic may be helpful if you develop vaginal symptoms such as itching or burning, foul odor or discharge. Please follow-up with your primary care physician within one week of discharge. 01/15/2019 11:00 AM Christiano Bill III, MD Family Practice [facility] Please followup with an eye doctor if your visual symptoms persist. It was a pleasure taking care of you! Please call if you have any questions or problems. You can reach a [facility] hospitalist on duty at [facility] 24 hours a day by calling [phone]. Take care of yourself. Dinah Elizabeth, DO [facility] Hospitalist Pending Studies at Discharge: No Stand-Alone Forms: My [facility] Medications and DC Order Prescriptions: New clindamycin HCl 150 mg Capsule 300 mg PO Q8 7 Days Qty: 42 RF: 0 Continued multivitamin Tablet 1 tab PO QAM RF: 0 atorvastatin [Lipitor] 80 mg Tablet 80 mg PO HS RF: 0 acetaminophen [Tylenol] 325 mg Tablet 325 mg PO Q6H PRN (Reason: Pain) RF: 0 cyanocobalamin (vitamin B-12) [Vitamin B-12] 1,000 mcg Tablet 1,000 mcg PO QAM RF: 0 levothyroxine [Synthroid] 25 mcg Tablet 25 mcg PO QAM RF: 0 citalopram 20 mg Tablet 20 mg PO QAM RF: 0 mirtazapine [Remeron] 15 mg Tablet 7.5 mg PO HS RF: 0 cholecalciferol (vitamin D3) [Vitamin D3] 1,000 unit Tablet 1,000 unit PO QAM RF: 0 rivastigmine [Exelon] 4.6 mg/24 hr Patch 24 Hour 1 patch TRANSDERMAL QAM RF: 0 omeprazole 40 mg capsule,delayed release(DR/EC) 40 mg PO BID RF: 0 ferrous sulfate 325 mg (65 mg iron) tablet 325 mg PO BID RF: 0 warfarin 1 mg tablet 1 mg PO WK RF: 0 warfarin 1 mg tablet 2 mg PO 6XWK RF: 0 ondansetron 4 mg Tablet,Disintegrating 4 mg PO Q6H PRN (Reason: Nausea) RF: 0 Discontinued Prilosec OTC 20 mg Tablet,Delayed Release (Dr/Ec) 20 mg PO QAM RF: 0 metoprolol succinate 25 mg Capsule,Sprinkle,Er 24hr 12.5 mg PO DAILY RF: 0 Discharge Orders: Discharge Order (Routine); Ordered 01/12/19 Ordered By: Dinah Elizabeth Admission Data Admit Date/Time: 01/09/19 00:08 Attending Provider: Dinah Elizabeth Admit Provider: Toi Mcnulty Primary Care Provider: Christiano Bill Other Providers: Toi Mcnulty
[2019-01-14] MEDS ORDERED: WARFARIN SOD 1 MG TAB PO SCH (16:00)
== END 2019-01-12 14:30 | disposition home health service (06) | DRG 177 ==
LOC: ED 16:39 → SUATTDRO 01-09 00:08 → 2W 01-09 00:08 → 4W 01-10 20:42

== ENCOUNTER 2019-11-19 09:47 | Inpatient (IN) ==
[2019-11-19 10:51] LABS: Basophils # (auto) 0.02 K/uL (0-0.2); Basophils % (auto) 0.1 %; Eosinophils # (auto) 0.01 K/uL (0-0.5); Eosinophils % (auto) 0.1 %; Hematocrit (blood only) 38.6 % (37-47); Hemoglobin 12.6 g/dL (12.0-16.0); Immature Granulocytes # (auto) 0.03 K/uL (0.00-0.02); Immature Granulocytes % (auto) 0.2 %; Lymphocytes # (auto) 0.53 K/uL (1.2-3.4); Mean Corpuscular Hgb Conc 32.6 g/dL (32-36); Mean Corpuscular Volume 95.1 fL (80-100); Mean Platelet Volume 10.5 fL (7.4-10.4); Monocytes # (auto) 1.25 K/uL (0.11-0.59); Neutrophils # (auto) 15.93 K/uL (1.4-6.5); Neutrophils % (auto) 89.6 %; Platelet Count 253 K/uL (130-400); RDW Coefficient of Variation 13.7 % (11.5-14.5); RDW Standard Deviation 47.2 fL (36.4-46.3); Red Blood Count 4.06 M/uL (4.2-5.4); White Blood Count 17.77 K/uL (4.8-10.8)
[2019-11-19] MEDS ORDERED: metroNIDAZOLE 500 MG/100 ML BAG IV STA (11:04)
[2019-11-19] MEDS ORDERED: cefTRIAXone SODIUM 1,000 MG/50 ML BAG IV STA (11:04)
[2019-11-19 11:08] LABS: BUN Creatinine Ratio 8.1 (10-20); Calcium 8.2 mg/dl (8.5-10.1); Creatinine Clr Calc Pharmacy 24.4 ml/min; Est GFR (African American) 28.3; Est GFR (Non-African American) 24.5; Magnesium 1.7 mg/dl (1.8-2.4); Potassium 3.8 mmol/L (3.5-5.1)
[2019-11-19 11:10] LABS: Partial Thromboplastin Ratio 1.9; Prothrombin Time 62.2 Seconds (9.0-12.0)
--- NOTE | 2019-11-19 11:14 | XRay Report ---
XR chest 1V portable CLINICAL HISTORY: Dyspnea COMPARISON STUDY: 01/08/2019 FINDINGS: The cardiac and mediastinal contours remain stable. There is radiographic evidence of conge stive failure with bilateral pleural effusions left greater than right. Associated basilar airspace o pacities are likely atelectatic although a superimposed infectious/inflammatory process cannot be exc luded.[ IMPRESSION: 1 no significant change from the prior study 2. Radiographic evidence of mild congestive failure with bilateral pleural effusions left greater luann n right 3. Bibasilar opacities, likely representing compressive atelectasis although a superimposed infectiou s/inflammatory process cannot be excluded ACT 112: Negative or not required by law. Electronically signed by: Butch Mcnulty M.D. 11/19/2019 11:12 AM
[2019-11-19 11:18] LABS: INR 6.5 (0.9-1.1); Partial Thromboplastin Time 53.8 Seconds (21.0-31.0)
[2019-11-19 11:27] LABS: Albumin Globulin Ratio 0.4 (0.9-2); Bilirubin,Total 0.6 mg/dl (0.2-1); Globulin 5.2 gm/dl (2.5-4.0); Total Protein 7.2 gm/dl (6.4-8.2); Troponin I 0.157 ng/ml (0-0.045)
[2019-11-19] MEDS ORDERED: SODIUM CHLORIDE 0.9% 500 ML IV ONE (11:48)
[2019-11-19] MEDS ORDERED: PHYTONADIONE 2.5 MG in SODIUM CHLORIDE 0.9% 50 ML IV ONE (11:52)
--- NOTE | 2019-11-19 12:54 | Electrocardiogram Report ---
Test Reason : Blood Pressure : / mmHG Vent. Rate : 097 BPM Atrial Rate : 088 BPM P-R Int : 000 ms QRS Dur : 096 ms QT Int : 360 ms P-R-T Axes : 000 -25 160 degrees QTc Int : 457 ms Atrial fibrillation with premature ventricular or aberrantly conducted complexes Low voltage QRS Inferior infarct , age undetermined Cannot rule out Anterior infarct (cited on or before 12-SEP-2017) Abnormal ECG When compared with ECG of 08-JAN-2019 17:24, No significant change Confirmed by David Natarajan ([id number]) on 11/19/2019 12:54:42 PM Referred By: REFERRED SELF Confirmed By:David Natarajan
--- NOTE | 2019-11-19 14:55 | CT Scan Report ---
CT OF THE HEAD WITHOUT CONTRAST CLINICAL HISTORY: elevated INR, AMS COMPARISON STUDY: Head CT January 08, 2019. CT DOSE: 537.48 mGy.cm TECHNIQUE: Helical axial images of the head were obtained without IV contrast. Automated exposure con trol was utilized for the study. A dose lowering technique was utilized adhering to the principles o f ALARA. FINDINGS: No acute intracranial hemorrhage, midline shift or mass effect is present. The ventricular system is stable. The basilar cisterns are patent. No extra-axial collections are present. Note is ma de of an old lacunar infarcts within the right cerebellar hemisphere. Encephalomalacia within the rig ht cerebral hemisphere is unchanged since prior head CT represent old infarcts. There are no findings to suggest acute dural sinus thrombosis or acute territorial infarct. No significant calvarial abnor malities are present. Visualized portions of the sinuses and mastoid air cells are clear. IMPRESSION: No acute intracranial findings. No change in appearance of the brain. ACT 112: Negative or not required by law. Electronically signed by: Jose C Kerr M.D. 11/19/2019 2:53 PM
[2019-11-19] MEDS: SODIUM CHLORIDE 0.9% 500 ML IV SCH ×3 (15:11→22:09)
--- NOTE | 2019-11-19 15:53 | History & Physical Report ---
Date of Service November 19, 2019 Assessment & Plan (1) Sepsis: Sepsis and hypoxia likely 2/2 aspiration pneumonia. Of note urine wasn't checked as straight cath wouldn't pass through her urethra. That is still pending. Will continue with ceftriaxone and flagyl started in the ER, which should also empirically cover a UTI if present. 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 Regarding her pneumonia and hypoxia, she has coarse rhonchi throughout and was coughing overnight with significant desaturation when found this morning. Lactate was 4.9, will repeat in a coupld of hours after initial fluid resuscitation given. Still has metabolic encephalopathy and lethargy. Will cont abx therapy pending blood cultures and clinical improvement. (2) Hypoxia: Secondary to poss aspiration pneumonia. Cont plan as above. (3) Elevated troponin: trop currently 0.157 in this patient with no known heart disease who has DMII. There are EKG changes in lateral leads. This is likely relected of strain in the setting of sepsis. Consulted cardiology for evaluation and thoughts. (4) Aspiration pneumonia: ceftrizone and flagyl pending clinical improvement and blood cultures. continue supplemental oxygen (currently 8LPM via Oxymask) (5) Acute metabolic encephalopathy: still present, secondary to infection, presumably aspiration pneumonia. Treat infection as above. Consider supportive care and consult Speech pathology for inpatient evaluation. Currently NPO until she is more awake and can pass a bedside dysphagia screening. (6) Chronic atrial fibrillation: Holding warfarin with supratherapeutic INR. Not on rate control, however, daughter doesnt know the meds and needed to confirm with family at home letting me know so I can update list. Rate is <100 at this time. (7) Supratherapeutic INR: Held warfarin. She received Vit K 2.5 IV in the ER. Repeat lab this evening. (8) CKD (chronic kidney disease), stage IV: at baseline. Renally dose medications when able. Avoid nephrotoxic substances. (9) Depression: Citalopram per home regimen. (10) H/O: stroke with residual effects: RUE fixed in a forearm bend where she holds this very close and the arm cannot bed very easily. (11) Dementia: High risk of readmission, cont to reorient as needed. (12) DMII (diabetes mellitus, type 2): Basal bolus during hospital stay. A1C check in am. (13) DVT prophylaxis: SCDs-currently has INR 6.5 so holding warfarin full Code as discussed with daughter at bedside. She is ok for intubation or CPR if needed. Dispo[facility]telemetry [facility] History of Present Illness Chief Complaint: SOB Primary Care Provider: Christiano Bill MD 79 yo F presented to the hospital via ambulance after daughter found her SOB. EMS reported oxygen saturation was 70% on room air. She is improved on oxygen supplementation with 10L via Oxymask at this time. Daughter lives with her and reports she heard mom coughing last night but then she went to bed and she reassessed her this morning. Daughter is giving the history as the patient is obtunded and not able to give history. She otherwise has not been ill in the last few days. Daughter denies she had any fever or smelly urine. The patient is bedbound with a lift machine at home. She travels in a wheelchair. Per daughter she hasn't eaten much in the last two weeks, but last night she ate her meal heartily. Daughter states she was here for aspiration issues last year and she looks similar to when she presented last time. The patient presented looking septic and with a possible aspiration appearance. A CXR suggested bilateral lower infiltrates vs atelectasis. She was given 500cc of fluid. Lactate was 4.9, INR was 6.5 and she is on warfarin which was held. No overt bleeding is present. She was started on ceftriaxone and Flagyl for sepsis 2/2 presumed aspiration pneumonia. Vitals signs started to normalize, however, she still needs supplemental oxygen at 5LPM. Allergies Allergy/AdvReac Type Severity Reaction Status Date / Time Bactrim Allergy Unknown PER ECF, Verified 11/24/17 11:37 NO RXN PROVIDED Penicillins Allergy Unknown PER ECF, Verified 11/19/19 11:03 NO RXN PROVIDED sulfamethoxazole Allergy Unknown PER ECF, Verified 11/19/19 11:03 NO RXN PROVIDED trimethoprim Allergy Unknown PER ECF, Verified 11/19/19 11:03 NO RXN PROVIDED azithromycin Allergy Rash Verified 11/19/19 11:03 Cipro AdvReac Mild "DELIRIUM" Verified 11/24/17 11:37 ciprofloxacin AdvReac Mild "DELIRIUM" Verified 11/19/19 11:03 Home Medications Home Medications Medication Instructions Recorded Confirmed Type atorvastatin [Lipitor] 80 mg PO HS 12/13/17 11/19/19 History cholecalciferol (vitamin D3) 1,000 unit PO HS 12/13/17 11/19/19 History [Vitamin D3] citalopram 20 mg PO HS 12/13/17 11/19/19 History cyanocobalamin (vitamin B-12) 1,000 mcg PO HS 12/13/17 11/19/19 History [Vitamin B-12] multivitamin 1 tab PO HS 12/13/17 11/19/19 History ferrous sulfate 325 mg PO HS 01/08/19 11/19/19 History omeprazole 40 mg PO HS 01/08/19 11/19/19 History warfarin 1 mg PO LEIVA@2100 01/08/19 11/19/19 History warfarin 2 mg PO MOTUWETHFRSA@2100 01/08/19 11/19/19 History levothyroxine [Euthyrox] 25 mcg PO HS 11/19/19 11/19/19 History Past Med/Surg History Medical History Atrial fibrillation Bacteremia Cerebral infarction Chronic kidney disease Depression Diabetes 1.5, managed as type 2 Essential (primary) hypertension GERD (gastroesophageal reflux disease) Intracranial pyogenic abscess Nephrolithiasis, uric acid Obesity (BMI 30-39.9) Orthostatic hypotension Osteoarthritis Surgical History History of esophagogastroduodenoscopy (EGD) History of lithotripsy Family History Mother Diabetes Social History Smoking Status: Never smoker Hx Alcohol Use: No Hx Substance Use: No Preferred Language: Tajik Communication Ability: Impaired Communication Ability Comment: only will give one word responses Visual Impairment: No 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 Can awaken with verbal stimulation but doesn't stay awake long enough to answer the question being asked. EYES: was not able to open her eyes long enough for me to examine. ENT: external ear and nose normal, oropharynx clear, no TM abnormality, no maxillary or ethmoid sinus tenderness NECK: trachea midline, no lymphadenopathy, normal thyroid RESPIRATORY: clear to auscultation bilaterally, no crackles, rales or wheezes, normal respiratory effort CARDIOVASCULAR: regular rate and rhythm, S1 and 2 heard without murmurs, gallops or rubs, no JVD, no peripheral edema GASTROINTESTINAL: normal bowel sounds, soft, nontender, nondistended MUSCULOSKELETAL: strength cannot be assessed with decreased cognition, head is normocephalic and atraumatic, She has a restricted RUE fixed in a flexed arm that cannot be passively moved easily. SKIN: warm and dry NEUROLOGIC: patellar DTRs could not be elicited. No facial palsy, obtunded PSYCHIATRIC: alert cooperative and oriented to person, place and time. Euthymic mood, makes good eye contact, language grossly intact, recent and remote memory grossly intact. Results & Data Results & Data ([facility]) Vital Signs (Past 12 Hours) Vital Signs Temp Pulse Pulse Resp BP BP Pulse Ox 11/19/19 15:40 70 22 100 11/19/19 15:30 74 24 100 11/19/19 15:20 65 20 100 11/19/19 15:10 71 22 99 11/19/19 15:00 75 25 H 100 11/19/19 14:51 74 26 H 100 11/19/19 14:30 68 22 97 11/19/19 14:20 69 27 H 100 11/19/19 14:10 78 26 H 99 11/19/19 14:00 70 27 H 95 11/19/19 13:50 70 26 H 95 11/19/19 13:40 73 27 H 99 11/19/19 13:30 77 27 H 97 11/19/19 13:24 72 22 113/78 11/19/19 13:22 76 26 H 113/78 100 11/19/19 13:20 69 27 H 99 11/19/19 13:10 69 28 H 96 11/19/19 13:00 74 27 H 97 11/19/19 12:51 74 24 98/62 L 99 11/19/19 12:50 71 26 H 98/62 L 98 11/19/19 12:40 69 30 H 91 11/19/19 12:30 69 30 H 81 L 11/19/19 12:20 74 26 H 98 11/19/19 12:10 71 27 H 98 11/19/19 12:00 71 28 H 97 11/19/19 11:50 71 26 H 98 11/19/19 11:40 78 29 H 97 11/19/19 11:30 82 25 H 94 11/19/19 11:20 82 28 H 92 11/19/19 11:10 85 33 H 93 11/19/19 11:08 88 28 H 110/44 L 92 11/19/19 11:06 86 29 H 110/44 L 91 11/19/19 11:00 93 H 24 91 11/19/19 10:50 88 31 H 92 11/19/19 10:40 94 H 30 H 90 11/19/19 10:30 80 34 H 90 11/19/19 10:20 87 35 H 90 11/19/19 10:10 96 H 31 H 91 11/19/19 10:08 91 H 31 H 92 11/19/19 10:05 92 11/19/19 10:01 36.7 C 99 H 18 72 L 11/19/19 09:54 89 31 H 116/53 L 91 Laboratory Results Short CBC 11/19/19 Range/Units 10:37 WBC 17.77 H (4.8-10.8) K/uL Hgb 12.6 (12.0-16.0) g/dL Hct 38.6 (37-47) % Plt Count 253 (130-400) K/uL BMP 11/19/19 10:37 Sodium 140 Potassium 3.8 Chloride 110 H Carbon Dioxide 22 BUN 15 Creatinine 1.89 H Glucose 188 H Calcium 8.2 L Cardiac Enzymes 11/19/19 Range/Units 10:37 Troponin I 0.157 H* (0-0.045) ng/ml Liver Function 11/19/19 Range/Units 10:37 Total Bilirubin 0.6 (0.2-1) mg/dl AST 17 (15-37) U/L ALT 11 L (12-78) U/L Alkaline Phosphatase 82 (45-117) U/L Albumin 2.0 L (3.4-5.0) gm/dl Diagnostic Findings CT OF THE HEAD WITHOUT CONTRAST CLINICAL HISTORY: elevated INR, AMS COMPARISON STUDY: Head CT January 08, 2019. CT DOSE: 537.48 mGy.cm TECHNIQUE: Helical axial images of the head were obtained without IV contrast. Automated exposure control was utilized for the study. A dose lowering technique was utilized adhering to the principles of ALARA. FINDINGS: No acute intracranial hemorrhage, midline shift or mass effect is present. The ventricular system is stable. The basilar cisterns are patent. No extra-axial collections are present. Note is made of an old lacunar infarcts within the right cerebellar hemisphere. Encephalomalacia within the right cerebral hemisphere is unchanged since prior head CT represent old infarcts. There are no findings to suggest acute dural sinus thrombosis or acute territorial infarct. No significant calvarial abnormalities are present. Vis ualized portions of the sinuses and mastoid air cells are clear. IMPRESSION: No acute intracranial findings. No change in appearance of the brain. R chest 1V portable CLINICAL HISTORY: Dyspnea COMPARISON STUDY: 01/08/2019 FINDINGS: The cardiac and mediastinal contours remain stable. There is radiographic evidence of congestive failure with bilateral pleural effusions left greater than right. Associated basilar airspace opacities are likely atelectatic although a superimposed infectious/inflammatory process cannot be excluded.[ IMPRESSION: 1 no significant change from the prior study 2. Radiographic evidence of mild congestive failure with bilateral pleural effusions left greater than right 3. Bibasilar opacities, likely representing compressive atelectasis although a superimposed infectious/inflammatory process cannot be excluded Medications Administered Current Inpatient Medications Sodium Chloride (Nss) 500 mls @ 125 mls/hr IV .Q4H MIRIAN Stop: 12/19/19 11:59 Last Admin: 11/19/19 15:11 Dose: 125 mls/hr Documented by: Ceftriaxone Sodium (Rocephin) 1,000 mg in 50 mls @ 100 mls/hr IV Q24H MIRIAN Stop: 11/27/19 10:59 Metronidazole (Flagyl) 500 mg in 100 mls @ 100 mls/hr IV Q8H MIRIAN Stop: 11/26/19 18:59 ECG Rhythm: atrial fibrillation Findings: + nonspecific-ST abn (Lateral) Code Status & VTE Plan VTE Prophylaxis Plan VTE Prophylaxis will be ordered: Yes
--- NOTE | 2019-11-19 16:22 | Emergency Department Note ---
History of Present Illness General Chief complaint: Shortness of Breath/Dyspnea Source: family and RN notes reviewed Mode of arrival: EMS Limitations: altered mental status and clinical acuity History of Present Illness Provider complaint: Shortness of breath, altered mentation Maximum Pain Intensity: 0 This patient is an 79-year-old female who presents emergency department with her daughter by ambulance. Patient's daughter states she developed some mild coughing last evening. She slept well but upon awakening this morning, patient's daughter noticed some increased work of breathing. She did not have a fever. She has had no choking or vomiting episodes. Patient's daughter states she has normally much more verbal than she has currently. Patient does have a history of stroke and is largely dependent on her daughter. She does have a history of aspiration but denies any history of congestive heart failure. History is significantly limited due to the patient's inability to answer questions. Home Medications Home Medications Medication Instructions Recorded Confirmed Type atorvastatin [Lipitor] 80 mg PO HS 12/13/17 11/19/19 History cholecalciferol (vitamin D3) 1,000 unit PO HS 12/13/17 11/19/19 History [Vitamin D3] citalopram 20 mg PO HS 12/13/17 11/19/19 History cyanocobalamin (vitamin B-12) 1,000 mcg PO HS 12/13/17 11/19/19 History [Vitamin B-12] multivitamin 1 tab PO HS 12/13/17 11/19/19 History ferrous sulfate 325 mg PO HS 01/08/19 11/19/19 History omeprazole 40 mg PO HS 01/08/19 11/19/19 History warfarin 1 mg PO LEIVA@2100 01/08/19 11/19/19 History warfarin 2 mg PO MOTUWETHFRSA@2100 01/08/19 11/19/19 History levothyroxine [Euthyrox] 25 mcg PO HS 11/19/19 11/19/19 History Allergies Allergy/AdvReac Type Severity Reaction Status Date / Time Bactrim Allergy Unknown PER ECF, Verified 11/24/17 11:37 NO RXN PROVIDED Penicillins Allergy Unknown PER ECF, Verified 11/19/19 11:03 NO RXN PROVIDED sulfamethoxazole Allergy Unknown PER ECF, Verified 11/19/19 11:03 NO RXN PROVIDED trimethoprim Allergy Unknown PER ECF, Verified 11/19/19 11:03 NO RXN PROVIDED azithromycin Allergy Rash Verified 11/19/19 11:03 Cipro AdvReac Mild "DELIRIUM" Verified 11/24/17 11:37 ciprofloxacin AdvReac Mild "DELIRIUM" Verified 11/19/19 11:03 Past Med/Surg History Medical History Atrial fibrillation Bacteremia Cerebral infarction Chronic kidney disease Depression Diabetes 1.5, managed as type 2 Essential (primary) hypertension GERD (gastroesophageal reflux disease) Intracranial pyogenic abscess Nephrolithiasis, uric acid Obesity (BMI 30-39.9) Orthostatic hypotension Osteoarthritis Surgical History History of esophagogastroduodenoscopy (EGD) History of lithotripsy Family History Mother Diabetes Social History Smoking Status: Never smoker Hx Alcohol Use: No Hx Substance Use: No Preferred Language: Upper Sorbian Communication Ability: Impaired Visual Impairment: No Limitations Hardboard Panel Printer Required: No Beliefs That Will Affect Care: None Current Living Situation: Family Feels Safe at Home: Yes Review of Systems Unobtainable due to reduced consciousness (Awake but non-verbal, history obtained from daughter at the bedside.) Physical Exam Vital Signs Vital Signs - 24 hr 11/19/19 09:54 11/19/19 10:01 11/19/19 10:05 Temperature 36.7 C Temperature Source Oral Pulse Rate 89 99 H Pulse Rate [Apical] Pulse Rate from SpO2 Sensor 90 Respiratory Rate 31 H 18 Blood Pressure 116/53 L Blood Pressure [Left Arm] Blood Pressure Mean 83 Blood Pressure Mean [Left Arm] Pulse Oximetry 91 72 L 92 Oxygen Delivery Method Room Air Oxymask Oxymask Oxygen Flow Rate 0 15 Sepsis Recent Fever Within 48 Hours No Sepsis New/Unexplained Change in Mental Status Yes Sepsis Action Taken by Nursing No Action Required Oxygen Flow Rate - Titration 15 Pulse Oximetry Post Tiitration 92 11/19/19 10:08 11/19/19 10:10 11/19/19 10:20 Temperature Temperature Source Pulse Rate 91 H 96 H 87 Pulse Rate [Apical] Pulse Rate from SpO2 Sensor 92 H 94 H 89 Respiratory Rate 31 H 31 H 35 H Blood Pressure Blood Pressure [Left Arm] Blood Pressure Mean Blood Pressure Mean [Left Arm] Pulse Oximetry 92 91 90 Oxygen Delivery Method Oxygen Flow Rate Sepsis Recent Fever Within 48 Hours Sepsis New/Unexplained Change in Mental Status Sepsis Action Taken by Nursing Oxygen Flow Rate - Titration Pulse Oximetry Post Tiitration 11/19/19 10:30 11/19/19 10:40 11/19/19 10:50 Temperature Temperature Source Pulse Rate 80 94 H 88 Pulse Rate [Apical] Pulse Rate from SpO2 Sensor 92 H 102 H 93 H Respiratory Rate 34 H 30 H 31 H Blood Pressure Blood Pressure [Left Arm] Blood Pressure Mean Blood Pressure Mean [Left Arm] Pulse Oximetry 90 90 92 Oxygen Delivery Method Oxygen Flow Rate Sepsis Recent Fever Within 48 Hours Sepsis New/Unexplained Change in Mental Status Sepsis Action Taken by Nursing Oxygen Flow Rate - Titration Pulse Oximetry Post Tiitration 11/19/19 11:00 11/19/19 11:06 11/19/19 11:08 Temperature Temperature Source Pulse Rate 93 H 86 Pulse Rate [Apical] 88 Pulse Rate from SpO2 Sensor 93 H 99 H Respiratory Rate 24 29 H 28 H Blood Pressure 110/44 L Blood Pressure [Left Arm] 110/44 L Blood Pressure Mean 80 Blood Pressure Mean [Left Arm] 66 Pulse Oximetry 91 91 92 Oxygen Delivery Method Oxymask Oxygen Flow Rate 15 Sepsis Recent Fever Within 48 Hours Sepsis New/Unexplained Change in Mental Status Sepsis Action Taken by Nursing Oxygen Flow Rate - Titration Pulse Oximetry Post Tiitration 11/19/19 11:10 11/19/19 11:20 11/19/19 11:30 Temperature Temperature Source Pulse Rate 85 82 82 Pulse Rate [Apical] Pulse Rate from SpO2 Sensor 89 84 83 Respiratory Rate 33 H 28 H 25 H Blood Pressure Blood Pressure [Left Arm] Blood Pressure Mean Blood Pressure Mean [Left Arm] Pulse Oximetry 93 92 94 Oxygen Delivery Method Oxygen Flow Rate Sepsis Recent Fever Within 48 Hours Sepsis New/Unexplained Change in Mental Status Sepsis Action Taken by Nursing Oxygen Flow Rate - Titration Pulse Oximetry Post Tiitration 11/19/19 11:40 11/19/19 11:50 11/19/19 12:00 Temperature Temperature Source Pulse Rate 78 71 71 Pulse Rate [Apical] Pulse Rate from SpO2 Sensor 81 72 73 Respiratory Rate 29 H 26 H 28 H Blood Pressure Blood Pressure [Left Arm] Blood Pressure Mean Blood Pressure Mean [Left Arm] Pulse Oximetry 97 98 97 Oxygen Delivery Method Oxygen Flow Rate Sepsis Recent Fever Within 48 Hours Sepsis New/Unexplained Change in Mental Status Sepsis Action Taken by Nursing Oxygen Flow Rate - Titration Pulse Oximetry Post Tiitration 11/19/19 12:10 11/19/19 12:20 11/19/19 12:30 Temperature Temperature Source Pulse Rate 71 74 69 Pulse Rate [Apical] Pulse Rate from SpO2 Sensor 71 72 76 Respiratory Rate 27 H 26 H 30 H Blood Pressure Blood Pressure [Left Arm] Blood Pressure Mean Blood Pressure Mean [Left Arm] Pulse Oximetry 98 98 81 L Oxygen Delivery Method Oxygen Flow Rate Sepsis Recent Fever Within 48 Hours Sepsis New/Unexplained Change in Mental Status Sepsis Action Taken by Nursing Oxygen Flow Rate - Titration Pulse Oximetry Post Tiitration 11/19/19 12:40 11/19/19 12:50 11/19/19 12:51 Temperature Temperature Source Pulse Rate 69 71 Pulse Rate [Apical] 74 Pulse Rate from SpO2 Sensor 81 69 Respiratory Rate 30 H 26 H 24 Blood Pressure 98/62 L Blood Pressure [Left Arm] 98/62 L Blood Pressure Mean 66 Blood Pressure Mean [Left Arm] 74 Pulse Oximetry 91 98 99 Oxygen Delivery Method Oxymask Oxygen Flow Rate 10 Sepsis Recent Fever Within 48 Hours Sepsis New/Unexplained Change in Mental Status Sepsis Action Taken by Nursing Oxygen Flow Rate - Titration Pulse Oximetry Post Tiitration 11/19/19 13:00 11/19/19 13:10 11/19/19 13:20 Temperature Temperature Source Pulse Rate 74 69 69 Pulse Rate [Apical] Pulse Rate from SpO2 Sensor 73 66 69 Respiratory Rate 27 H 28 H 27 H Blood Pressure Blood Pressure [Left Arm] Blood Pressure Mean Blood Pressure Mean [Left Arm] Pulse Oximetry 97 96 99 Oxygen Delivery Method Oxygen Flow Rate Sepsis Recent Fever Within 48 Hours Sepsis New/Unexplained Change in Mental Status Sepsis Action Taken by Nursing Oxygen Flow Rate - Titration Pulse Oximetry Post Tiitration 11/19/19 13:22 11/19/19 13:24 11/19/19 13:30 Temperature Temperature Source Pulse Rate 76 77 Pulse Rate [Apical] 72 Pulse Rate from SpO2 Sensor 71 77 Respiratory Rate 26 H 22 27 H Blood Pressure 113/78 Blood Pressure [Left Arm] 113/78 Blood Pressure Mean 93 Blood Pressure Mean [Left Arm] 89 Pulse Oximetry 100 97 Oxygen Delivery Method Oxygen Flow Rate Sepsis Recent Fever Within 48 Hours Sepsis New/Unexplained Change in Mental Status Sepsis Action Taken by Nursing Oxygen Flow Rate - Titration Pulse Oximetry Post Tiitration 11/19/19 13:40 11/19/19 13:50 11/19/19 14:00 Temperature Temperature Source Pulse Rate 73 70 70 Pulse Rate [Apical] Pulse Rate from SpO2 Sensor 71 70 73 Respiratory Rate 27 H 26 H 27 H Blood Pressure Blood Pressure [Left Arm] Blood Pressure Mean Blood Pressure Mean [Left Arm] Pulse Oximetry 99 95 95 Oxygen Delivery Method Oxygen Flow Rate Sepsis Recent Fever Within 48 Hours Sepsis New/Unexplained Change in Mental Status Sepsis Action Taken by Nursing Oxygen Flow Rate - Titration Pulse Oximetry Post Tiitration 11/19/19 14:10 11/19/19 14:20 11/19/19 14:30 Temperature Temperature Source Pulse Rate 78 69 68 Pulse Rate [Apical] Pulse Rate from SpO2 Sensor 77 72 68 Respiratory Rate 26 H 27 H 22 Blood Pressure Blood Pressure [Left Arm] Blood Pressure Mean Blood Pressure Mean [Left Arm] Pulse Oximetry 99 100 97 Oxygen Delivery Method Oxygen Flow Rate Sepsis Recent Fever Within 48 Hours Sepsis New/Unexplained Change in Mental Status Sepsis Action Taken by Nursing Oxygen Flow Rate - Titration Pulse Oximetry Post Tiitration 11/19/19 14:51 11/19/19 15:00 11/19/19 15:10 Temperature Temperature Source Pulse Rate 74 75 71 Pulse Rate [Apical] Pulse Rate from SpO2 Sensor 69 67 68 Respiratory Rate 26 H 25 H 22 Blood Pressure Blood Pressure [Left Arm] Blood Pressure Mean Blood Pressure Mean [Left Arm] Pulse Oximetry 100 100 99 Oxygen Delivery Method Oxymask Oxymask Oxygen Flow Rate 8 8 Sepsis Recent Fever Within 48 Hours Sepsis New/Unexplained Change in Mental Status Sepsis Action Taken by Nursing Oxygen Flow Rate - Titration Pulse Oximetry Post Tiitration 11/19/19 15:20 11/19/19 15:30 11/19/19 15:40 Temperature Temperature Source Pulse Rate 65 74 70 Pulse Rate [Apical] Pulse Rate from SpO2 Sensor 74 71 69 Respiratory Rate 20 24 22 Blood Pressure Blood Pressure [Left Arm] Blood Pressure Mean Blood Pressure Mean [Left Arm] Pulse Oximetry 100 100 100 Oxygen Delivery Method Oxymask Oxymask Oxymask Oxygen Flow Rate 8 8 8 Sepsis Recent Fever Within 48 Hours Sepsis New/Unexplained Change in Mental Status Sepsis Action Taken by Nursing Oxygen Flow Rate - Titration Pulse Oximetry Post Tiitration 11/19/19 15:50 11/19/19 15:54 11/19/19 16:00 Temperature Temperature Source Pulse Rate 68 71 70 Pulse Rate [Apical] Pulse Rate from SpO2 Sensor 76 81 Respiratory Rate 23 13 25 H Blood Pressure 104/73 Blood Pressure [Left Arm] Blood Pressure Mean 97 Blood Pressure Mean [Left Arm] Pulse Oximetry 100 100 Oxygen Delivery Method Oxymask Oxymask Oxymask Oxygen Flow Rate 8 8 8 Sepsis Recent Fever Within 48 Hours Sepsis New/Unexplained Change in Mental Status Sepsis Action Taken by Nursing Oxygen Flow Rate - Titration Pulse Oximetry Post Tiitration 11/19/19 16:09 Temperature Temperature Source Pulse Rate Pulse Rate [Apical] Pulse Rate from SpO2 Sensor Respiratory Rate Blood Pressure Blood Pressure [Left Arm] Blood Pressure Mean Blood Pressure Mean [Left Arm] Pulse Oximetry Oxygen Delivery Method Oxymask Oxygen Flow Rate 8 Sepsis Recent Fever Within 48 Hours Sepsis New/Unexplained Change in Mental Status Sepsis Action Taken by Nursing Oxygen Flow Rate - Titration Pulse Oximetry Post Tiitration Vital signs reviewed. General: Chronically ill-appearing 79-year-old female in some respiratory discomfort. HEENT: No scleral icterus, PERRLA, neck supple. Dry mucous membranes. Cardiovascular: Rate controlled but irregular Pulmonary: Diffuse rhonchi bilaterally, increased work of breathing on oxygen mask Abdomen: Soft, nontender, nondistended, positive bowel sounds. Musculoskeletal: Stiff extremities and difficult to examine as unable to cooperate. Atraumatic without significant peripheral edema. Neurologic: Patient awake alert but nonverbal. Skin: Warm, dry, no rash Course Administered Medications Sodium Chloride (Nss) 500 mls @ 125 mls/hr IV .Q4H MIRIAN Stop: 12/19/19 11:59 Last Admin: 11/19/19 15:11 Dose: 125 mls/hr Documented by: [id number] Discontinued Medications Ceftriaxone Sodium (Rocephin) 1,000 mg in 50 mls @ 100 mls/hr IV NOW STA Stop: 11/19/19 11:33 Last Infusion: 11/19/19 12:41 Dose: 0 mls/hr Documented by: [id number] Admin: 11/19/19 11:55 Dose: 100 mls/hr Documented by: [id number] Metronidazole (Flagyl) 500 mg in 100 mls @ 100 mls/hr IV NOW STA Stop: 11/19/19 12:03 Last Infusion: 11/19/19 12:52 Dose: 0 mls/hr Documented by: [id number] Admin: 11/19/19 11:52 Dose: 100 mls/hr Documented by: [id number] Sodium Chloride (Nss) 500 mls @ 999 mls/hr IV .Q31M ONE Stop: 11/19/19 12:18 Last Infusion: 11/19/19 12:41 Dose: 0 mls/hr Documented by: [id number] Admin: 11/19/19 11:52 Dose: 999 mls/hr Documented by: [id number] Phytonadione 2.5 mg/ Sodium (Chloride) 50.25 mls @ 100.5 mls/hr IV ONE ONE Stop: 11/19/19 12:21 Last Infusion: 11/19/19 13:26 Dose: 0 mls/hr Documented by: [id number] Admin: 11/19/19 12:56 Dose: 100.5 mls/hr Documented by: [id number] Medical Decision Making Differential Diagnosis Vital signs reviewed. General: Well-appearing [], in no significant distress. HEENT: No scleral icterus, PERRLA, neck supple. Atraumatic. Cardiovascular: Regular rate and rhythm, no extra sounds. Pulmonary: Clear to auscultation bilaterally, normal work of breathing. Abdomen: Soft, nontender, nondistended, positive bowel sounds. Musculoskeletal: Atraumatic, no peripheral edema. Neurologic: Patient awake alert and oriented x 3, full strength in all 4 extremities. Cranial nerves 2 through 12 grossly intact. Skin: Warm, dry, no rash Medical Records Attestation: I reviewed the patient's medical records. Home Medications Current Medication List: was personally reviewed by me Laboratory Data Attestation: I reviewed the patient's lab results. Result diagrams: 11/19/19 10:37 11/19/19 10:37 Lab Results 11/19/19 11/19/19 11/19/19 Range/Units 10:37 10:37 10:37 WBC 17.77 H (4.8-10.8) K/uL RBC 4.06 L (4.2-5.4) M/uL Hgb 12.6 (12.0-16.0) g/dL Hct 38.6 (37-47) % MCV 95.1 (80-100) fL MCH 31.0 (25-34) pg MCHC 32.6 (32-36) g/dL RDW Std Deviation 47.2 H (36.4-46.3) fL RDW Coeff of Ankit 13.7 (11.5-14.5) % Plt Count 253 (130-400) K/uL MPV 10.5 H (7.4-10.4) fL Immature Gran % (Auto) 0.2 % Neut % (Auto) 89.6 % Lymph % (Auto) 3.0 % [place] % (Auto) 7.0 % Eos % (Auto) 0.1 % Baso % (Auto) 0.1 % Neut # (Auto) 15.93 H (1.4-6.5) K/uL Lymph # (Auto) 0.53 L (1.2-3.4) K/uL [place] # (Auto) 1.25 H (0.11-0.59) K/uL Eos # (Auto) 0.01 (0-0.5) K/uL Baso # (Auto) 0.02 (0-0.2) K/uL Immature Gran # (Auto) 0.03 H (0.00-0.02) K/uL PT 62.2 H (9.0-12.0) Seconds INR 6.5 H* (0.9-1.1) APTT 53.8 H* (21.0-31.0) Seconds PTT Ratio 1.9 Sodium 140 (136-145) mmol/L Potassium 3.8 (3.5-5.1) mmol/L Chloride 110 H (98-107) mmol/L Carbon Dioxide 22 (21-32) mmol/L Anion Gap 8.0 (3-11) BUN 15 (7-18) mg/dl Creatinine 1.89 H (0.6-1.2) mg/dl Est Cr Clr Drug Dosing 24.4 ml/min Est GFR ( Amer) 28.3 Est GFR (Non-Af Amer) 24.5 BUN/Creatinine Ratio 8.1 L (10-20) Glucose 188 H (70-99) mg/dl Lactate (0.4-2.0) mmol/L Calcium 8.2 L (8.5-10.1) mg/dl Magnesium 1.7 L (1.8-2.4) mg/dl Total Bilirubin 0.6 (0.2-1) mg/dl AST 17 (15-37) U/L ALT 11 L (12-78) U/L Alkaline Phosphatase 82 (45-117) U/L Troponin I 0.157 H* (0-0.045) ng/ml NT-Pro-B Natriuret Pep 9871 H (0-1800) pg/ml Total Protein 7.2 (6.4-8.2) gm/dl Albumin 2.0 L (3.4-5.0) gm/dl Globulin 5.2 H (2.5-4.0) gm/dl Albumin/Globulin Ratio 0.4 L (0.9-2) COVID-19 Eval Order COVID-19 PCR (Negative) 11/19/19 11/19/19 11/19/19 Range/Units 10:37 12:40 12:40 WBC (4.8-10.8) K/uL RBC (4.2-5.4) M/uL Hgb (12.0-16.0) g/dL Hct (37-47) % MCV (80-100) fL MCH (25-34) pg MCHC (32-36) g/dL RDW Std Deviation (36.4-46.3) fL RDW Coeff of Ankit (11.5-14.5) % Plt Count (130-400) K/uL MPV (7.4-10.4) fL Immature Gran % (Auto) % Neut % (Auto) % Lymph % (Auto) % [place] % (Auto) % Eos % (Auto) % Baso % (Auto) % Neut # (Auto) (1.4-6.5) K/uL Lymph # (Auto) (1.2-3.4) K/uL [place] # (Auto) (0.11-0.59) K/uL Eos # (Auto) (0-0.5) K/uL Baso # (Auto) (0-0.2) K/uL Immature Gran # (Auto) (0.00-0.02) K/uL PT (9.0-12.0) Seconds INR (0.9-1.1) APTT (21.0-31.0) Seconds PTT Ratio Sodium (136-145) mmol/L Potassium (3.5-5.1) mmol/L Chloride (98-107) mmol/L Carbon Dioxide (21-32) mmol/L Anion Gap (3-11) BUN (7-18) mg/dl Creatinine (0.6-1.2) mg/dl Est Cr Clr Drug Dosing ml/min Est GFR ( Amer) Est GFR (Non-Af Amer) BUN/Creatinine Ratio (10-20) Glucose (70-99) mg/dl Lactate 4.9 H* (0.4-2.0) mmol/L Calcium (8.5-10.1) mg/dl Magnesium (1.8-2.4) mg/dl Total Bilirubin (0.2-1) mg/dl AST (15-37) U/L ALT (12-78) U/L Alkaline Phosphatase (45-117) U/L Troponin I (0-0.045) ng/ml NT-Pro-B Natriuret Pep (0-1800) pg/ml Total Protein (6.4-8.2) gm/dl Albumin (3.4-5.0) gm/dl Globulin (2.5-4.0) gm/dl Albumin/Globulin Ratio (0.9-2) COVID-19 Eval Order Covid19 Done at [facility] COVID-19 PCR NEGATIVE (Negative) Imaging Data Radiologist's Impression: XR chest 1V portable CLINICAL HISTORY: Dyspnea COMPARISON STUDY: 01/08/2019 FINDINGS: The cardiac and mediastinal contours remain stable. There is radiographic evidence of congestive failure with bilateral pleural effusions left greater than right. Associated basilar airspace opacities are likely atelectatic although a superimposed infectious/inflammatory process cannot be excluded.[ IMPRESSION: 1 no significant change from the prior study 2. Radiographic evidence of mild congestive failure with bilateral pleural effusions left greater than right 3. Bibasilar opacities, likely representing compressive atelectasis although a superimposed infectious/inflammatory process cannot be excluded ACT 112: Negative or not required by law. Electronically signed by: Butch Mcnulty M.D. 11/19/2019 11:12 AM Dictated: 11/19/19 1111 Transcribed: 11/19/[address] OF THE HEAD WITHOUT CONTRAST CLINICAL HISTORY: elevated INR, AMS COMPARISON STUDY: Head CT January 08, 2019. CT DOSE: 537.48 mGy.cm TECHNIQUE: Helical axial images of the head were obtained without IV contrast. Automated exposure control was utilized for the study. A dose lowering technique was utilized adhering to the principles of ALARA. FINDINGS: No acute intracranial hemorrhage, midline shift or mass effect is present. The ventricular system is stable. The basilar cisterns are patent. No extra-axial collections are present. Note is made of an old lacunar infarcts within the right cerebellar hemisphere. Encephalomalacia within the right cerebral hemisphere is unchanged since prior head CT represent old infarcts. There are no findings to suggest acute dural sinus thrombosis or acute territorial infarct. No significant calvarial abnormalities are present. Visualized portions of the sinuses and mastoid air cells are clear. IMPRESSION: No acute intracranial findings. No change in appearance of the brain. ACT 112: Negative or not required by law. Electronically signed by: Jose C Kerr M.D. 11/19/2019 2:53 PM Dictated: 11/19/191450 Transcribed: 11/19/191450 ECG Data Attestation: I personally reviewed and interpreted this ECG as follows: Indication: + SOB/dyspnea Rate (beats per minute): 97 Rhythm: + atrial fibrillation ECG Intervals/blocks: no Normal QRS (Low voltage) ECG ST segments: + Nonspecific ST abnormalities (Lateral) ECG Findings: + Q waves (Inferior and lateral) Blood Pressure Blood Pressure Findings: Normal blood pressure Blood Pressure Disposition: further management by hospitalist MDM Narrative This patient was evaluated and appeared to be in some discomfort. IV access was obtained and laboratory work was drawn. An order for cardiac monitoring was placed and the patient is noted to be in a rate controlled atrial fibrillation. Initially patient's exam reveals rhonchi bilaterally without fever and poor oxygenation. There was some delay in obtaining laboratory work and x-ray. Patient is noted to have evidence of mild congestive failure with bilateral pleural effusions as well as bibasilar opacities. Patient's laboratory work is significant for markedly elevated INR of 6.5 with a lactate of 4.9. Troponin is slightly elevated but felt to be demand mediated process. IV hydration 500 cc bolus was ordered with an additional rate of 125 cc/h. Rapid COVID swab was obtained and is negative. Blood cultures are pending however for attempts at a catheterized urine specimen were made and unsuccessful. Patient was placed on IV ceftriaxone and Flagyl for likely aspiration due to a penicillin allergy. Case was discussed with Dr. Elizabeth of the hospitalist service who will evaluate the patient for admission and further management. Impression & Plan Hypoxia, Pneumonia, Sepsis Discharge Plan Visit Data Chief Complaint: Shortness of Breath/Dyspnea ED Provider: Rosy Roberts Discharge Problem: Hypoxia, Pneumonia, Sepsis Patient Disposition: Admitted As Inpatient Discharge Instructions Interventions: ED Discharge Assessment Last Done: 11/19/19 16:09 Forms Stand Alone Forms: [facility] Prescriptions Prescriptions: No Action multivitamin Tablet 1 tab PO HS RF: 0 atorvastatin [Lipitor] 80 mg Tablet 80 mg PO HS RF: 0 cyanocobalamin (vitamin B-12) [Vitamin B-12] 1,000 mcg Tablet 1,000 mcg PO HS RF: 0 citalopram 20 mg Tablet 20 mg PO HS RF: 0 cholecalciferol (vitamin D3) [Vitamin D3] 1,000 unit Tablet 1,000 unit PO HS RF: 0 omeprazole 40 mg capsule,delayed release(DR/EC) 40 mg PO HS RF: 0 ferrous sulfate 325 mg (65 mg iron) tablet 325 mg PO HS RF: 0 warfarin 1 mg tablet 1 mg PO LEIVA@2100 RF: 0 warfarin 1 mg tablet 2 mg PO MOTUWETHFRSA@2100 RF: 0 levothyroxine [Euthyrox] 25 mcg tablet 25 mcg PO HS RF: 0 Referrals Referrals: Christiano Bill MD [Primary Care Provider] - Discharge Problem: Pneumonia Qualifiers: Pneumonia type: aspiration pneumonia Aspiration pneumonia type: unspecified Laterality: bilateral Lung location: lower lobe of lung Qualified Code(s): J69.0 - Pneumonitis due to inhalation of food and vomit Sepsis Qualifiers: Sepsis type: sepsis due to unspecified organism Sepsis acute organ dysfunction status: unspecified Qualified Code(s): A41.9 - Sepsis, unspecified organism
[2019-11-19] MEDS ORDERED: ACETAMINOPHEN 325 MG TAB PO PRN (18:00)
[2019-11-19] MEDS ORDERED: GLUCOSE 10 TABS/TUBE PO PRN (18:00)
[2019-11-19] MEDS ORDERED: GLUCAGON FOR INJ 1 MG VIAL SQ PRN (18:00)
[2019-11-19] MEDS ORDERED: CARBOHYDRATES FOR HYPOGLYCEMIA PO PRN (18:00)
[2019-11-19] MEDS ORDERED: GLUCOSE 40% GEL 15 GM TUBE PO PRN (18:00)
[2019-11-19] MEDS: INSULIN ASPART 100 UNITS/ML 3 ML PEN SC SCH (18:24)
[2019-11-19] MEDS ORDERED: LEVOTHYROXINE SODIUM 25 MCG TABLET PO SCH (21:00)
[2019-11-19] MEDS: metroNIDAZOLE 500 MG/100 ML BAG IV SCH (22:09)
[2019-11-19] MEDS: CITALOPRAM 20 MG TAB PO SCH (22:10)
[2019-11-19] MEDS: CHOLECALCIFEROL 1,000 UNITS 25 MCG TAB PO SCH (22:11)
[2019-11-19] MEDS: ATORVASTATIN 40 MG TAB PO SCH (22:11)
[2019-11-19] MEDS: INSULIN GLARGINE SOLOSTAR 100 UNITS/ML 3 ML PEN SC SCH (22:20)
[2019-11-19 23:03] LABS: INR 2.5 (0.9-1.1); Prothrombin Time 25.1 Seconds (9.0-12.0)
[2019-11-20] MEDS: INSULIN ASPART 100 UNITS/ML 3 ML PEN SC SCH ×4 (00:14→18:06)
[2019-11-20] MEDS: SODIUM CHLORIDE 0.9% 500 ML IV SCH ×5 (03:44→17:55)
[2019-11-20] MEDS: metroNIDAZOLE 500 MG/100 ML BAG IV SCH ×3 (03:46→21:45)
[2019-11-20 08:22] LABS: Basophils # (auto) 0.02 K/uL (0-0.2); Basophils % (auto) 0.2 %; Hematocrit (blood only) 36.8 % (37-47); Hemoglobin 12.1 g/dL (12.0-16.0); Immature Granulocytes # (auto) 0.01 K/uL (0.00-0.02); Immature Granulocytes % (auto) 0.1 %; Lymphocytes # (auto) 1.14 K/uL (1.2-3.4); Mean Corpuscular Hemoglobin 31.1 pg (25-34); Mean Corpuscular Hgb Conc 32.9 g/dL (32-36); Mean Corpuscular Volume 94.6 fL (80-100); Mean Platelet Volume 10.7 fL (7.4-10.4); Monocytes # (auto) 0.78 K/uL (0.11-0.59); Monocytes % (auto) 6.8 %; Neutrophils # (auto) 9.48 K/uL (1.4-6.5); Neutrophils % (auto) 82.9 %; Platelet Count 196 K/uL (130-400); RDW Coefficient of Variation 13.8 % (11.5-14.5); RDW Standard Deviation 47.1 fL (36.4-46.3); Red Blood Count 3.89 M/uL (4.2-5.4); White Blood Count 11.43 K/uL (4.8-10.8)
[2019-11-20 08:37] LABS: INR 1.8 (0.9-1.1); Prothrombin Time 18.7 Seconds (9.0-12.0)
[2019-11-20 08:50] LABS: BUN Creatinine Ratio 10.6 (10-20); Calcium 8.7 mg/dl (8.5-10.1); Creatinine Clr Calc Pharmacy 21.8 ml/min; Est GFR (African American) 25.4; Est GFR (Non-African American) 21.9; Magnesium 1.7 mg/dl (1.8-2.4); Potassium 4.2 mmol/L (3.5-5.1)
[2019-11-20] MEDS: INSULIN GLARGINE SOLOSTAR 100 UNITS/ML 3 ML PEN SC SCH (08:53)
[2019-11-20] MEDS: PANTOprazole 40 MG TAB PO SCH (08:54)
[2019-11-20 10:02] LABS: Estimated Average Glucose 100 mg/dl; Hemoglobin A1C 5.1 % (4.5-5.6)
--- NOTE | 2019-11-20 11:14 | Cardiology Consultation ---
Date of Consultation November 20, 2019 Assessment & Plan (1) Elevated troponin: (2) Hypoxia: (3) DMII (diabetes mellitus, type 2): (4) Supratherapeutic INR: (5) Aspiration pneumonia: Minimal troponin elevation and slight EKG changes in the setting of hypoxia due to aspiration pneumonia. I do not believe this represents an acute ischemic event. For completeness sake a 2D echocardiogram will be performed to evaluate for any wall motion abnormalities. No medication changes will be made at this time. Will defer further medical management to the primary team. History of Present Illness Reason for Consultation: Elevated troponin Requesting Physician: Dr. Elizabeth Attending Physician: Lesia Rosado MD History of Present Illness Mrs. Selby is a 79-year-old woman who was admitted to [facility] Emergency Department after aspiration and subsequent the patient is currently of time did and history obtained through review of medical records. She is not known or Cardiology practice but does carry history of chronic atrial fibrillation on chronic Coumadin therapy. Her daughter reported that she was in her normal state of health yesterday but she notes that she was coughing. She then went to the wake her this morning and she was unresponsive. Upon arrival to the emergency department it was discovered that she likely aspirated and was hypoxic. A troponin level was drawn and mildly elevated and Cardiology is asked to see the patient. Currently she is not responsive. Allergies Allergy/AdvReac Type Severity Reaction Status Date / Time Bactrim Allergy Unknown PER ECF, Verified 11/24/17 11:37 NO RXN PROVIDED Penicillins Allergy Unknown PER ECF, Verified 11/19/19 11:03 NO RXN PROVIDED sulfamethoxazole Allergy Unknown PER ECF, Verified 11/19/19 11:03 NO RXN PROVIDED trimethoprim Allergy Unknown PER ECF, Verified 11/19/19 11:03 NO RXN PROVIDED azithromycin Allergy Rash Verified 11/19/19 11:03 Cipro AdvReac Mild "DELIRIUM" Verified 11/24/17 11:37 ciprofloxacin AdvReac Mild "DELIRIUM" Verified 11/19/19 11:03 Home Medications Home Medications Medication Instructions Recorded Confirmed Type atorvastatin [Lipitor] 80 mg PO HS 12/13/17 11/19/19 History cholecalciferol (vitamin D3) 1,000 unit PO HS 12/13/17 11/19/19 History [Vitamin D3] citalopram 20 mg PO HS 12/13/17 11/19/19 History cyanocobalamin (vitamin B-12) 1,000 mcg PO HS 12/13/17 11/19/19 History [Vitamin B-12] multivitamin 1 tab PO HS 12/13/17 11/19/19 History ferrous sulfate 325 mg PO HS 01/08/19 11/19/19 History omeprazole 40 mg PO HS 01/08/19 11/19/19 History warfarin 1 mg PO LEIVA@2100 01/08/19 11/19/19 History warfarin 2 mg PO MOTUWETHFRSA@2100 01/08/19 11/19/19 History levothyroxine [Euthyrox] 25 mcg PO HS 11/19/19 11/19/19 History Patient History Medical History Atrial fibrillation Bacteremia Cerebral infarction Chronic kidney disease Depression Diabetes 1.5, managed as type 2 Essential (primary) hypertension GERD (gastroesophageal reflux disease) Intracranial pyogenic abscess Nephrolithiasis, uric acid Obesity (BMI 30-39.9) Orthostatic hypotension Osteoarthritis Surgical History History of esophagogastroduodenoscopy (EGD) History of lithotripsy Family History Mother Diabetes Social History Smoking Status: Never smoker Hx Alcohol Use: No Hx Substance Use: No Preferred Language: Belarusian Communication Ability: Impaired Communication Ability Comment: only will give one word responses Visual Impairment: No Limitations Store Assistant Required: No Beliefs That Will Affect Care: None Current Living Situation: Family Current Living Situation Comment: lives with daughter and family Other Information That Helps Us Care for You: No Feels Safe at Home: Yes Safety Concerns: Feels Safe At This Time Review of Systems Review of Systems: Unobtainable due to cognitive status Physical Exam Physical Exam: General: Obtunded. Cachectic. Chronically ill appearing HEENT: Normocephalic, atraumatic. Pupils equal, round and reactive to light and accommodation. Extraocular muscles are intact. Anicteric sclera. Moist mucous membranes. Neck: No JVD. No bruit. Cardiovascular: irregularly irregular, unable to appreciate murmur, rub or gallop. Pulmonary: Clear to auscultation bilaterally. No rales, rhonchi, or wheezing. Abdomen: Bowel sounds x 4, soft. No rebound, guarding or tenderness. No organomegaly. Extremities: No clubbing, cyanosis or edema. +2 pedal pulses bilaterally. Skin: Warm and dry. Results & Data ([facility]) Vital Signs (Past 12 Hours) Vital Signs Temp Pulse Resp BP Pulse Ox 11/20/19 07:58 37.0 C 62 16 142/69 H 98 11/20/19 03:00 36.7 C 62 16 139/67 95 11/19/19 23:29 36.5 C 63 16 117/56 L 98 Laboratory Results Laboratory Results - last 24 hr 11/19/19 11/19/19 11/19/19 18:17 18:22 22:46 WBC RBC Hgb Hct MCV MCH MCHC RDW Std Deviation RDW Coeff of Ankit Plt Count MPV Immature Gran % (Auto) Neut % (Auto) Lymph % (Auto) [place] % (Auto) Eos % (Auto) Baso % (Auto) Neut # (Auto) Lymph # (Auto) [place] # (Auto) Eos # (Auto) Baso # (Auto) Immature Gran # (Auto) PT INR Sodium Potassium Chloride Carbon Dioxide Anion Gap BUN Creatinine Est Cr Clr Drug Dosing Est GFR ( Amer) Est GFR (Non-Af Amer) BUN/Creatinine Ratio Glucose POC Glucose 140 H Estimat Average Glucose Hemoglobin A1c Lactate Calcium Magnesium Troponin I 0.410 H* 0.393 H* Bld Cult Staph aureus PCR Blood Culture MRSA PCR 11/19/19 11/19/19 11/20/19 22:46 23:58 05:57 WBC RBC Hgb Hct MCV MCH MCHC RDW Std Deviation RDW Coeff of Ankit Plt Count MPV Immature Gran % (Auto) Neut % (Auto) Lymph % (Auto) [place] % (Auto) Eos % (Auto) Baso % (Auto) Neut # (Auto) Lymph # (Auto) [place] # (Auto) Eos # (Auto) Baso # (Auto) Immature Gran # (Auto) PT 25.1 H INR 2.5 H Sodium Potassium Chloride Carbon Dioxide Anion Gap BUN Creatinine Est Cr Clr Drug Dosing Est GFR ( Amer) Est GFR (Non-Af Amer) BUN/Creatinine Ratio Glucose POC Glucose 121 H 103 H Estimat Average Glucose Hemoglobin A1c Lactate Calcium Magnesium Troponin I Bld Cult Staph aureus PCR Blood Culture MRSA PCR 11/20/19 11/20/19 11/20/19 08:11 08:11 08:11 WBC 11.43 H RBC 3.89 L Hgb 12.1 Hct 36.8 L MCV 94.6 MCH 31.1 MCHC 32.9 RDW Std Deviation 47.1 H RDW Coeff of Ankit 13.8 Plt Count 196 MPV 10.7 H Immature Gran % (Auto) 0.1 Neut % (Auto) 82.9 Lymph % (Auto) 10.0 [place] % (Auto) 6.8 Eos % (Auto) 0.0 Baso % (Auto) 0.2 Neut # (Auto) 9.48 H Lymph # (Auto) 1.14 L [place] # (Auto) 0.78 H Eos # (Auto) 0.00 Baso # (Auto) 0.02 Immature Gran # (Auto) 0.01 PT 18.7 H INR 1.8 H Sodium 142 Potassium 4.2 Chloride 110 H Carbon Dioxide 24 Anion Gap 8.0 BUN 22 H Creatinine 2.07 H Est Cr Clr Drug Dosing 21.8 Est GFR ( Amer) 25.4 Est GFR (Non-Af Amer) 21.9 BUN/Creatinine Ratio 10.6 Glucose 85 POC Glucose Estimat Average Glucose Hemoglobin A1c Lactate Calcium 8.7 Magnesium 1.7 L Troponin I Bld Cult Staph aureus PCR Blood Culture MRSA PCR 11/20/19 11/20/19 11/20/19 08:11 11:48 11:59 WBC RBC Hgb Hct MCV MCH MCHC RDW Std Deviation RDW Coeff of Ankit Plt Count MPV Immature Gran % (Auto) Neut % (Auto) Lymph % (Auto) [place] % (Auto) Eos % (Auto) Baso % (Auto) Neut # (Auto) Lymph # (Auto) [place] # (Auto) Eos # (Auto) Baso # (Auto) Immature Gran # (Auto) PT INR Sodium Potassium Chloride Carbon Dioxide Anion Gap BUN Creatinine Est Cr Clr Drug Dosing Est GFR ( Amer) Est GFR (Non-Af Amer) BUN/Creatinine Ratio Glucose POC Glucose 81 Estimat Average Glucose 100 Hemoglobin A1c 5.1 Lactate Calcium Magnesium Troponin I Bld Cult Staph aureus PCR Negative Blood Culture MRSA PCR Negative 11/20/19 14:29 WBC RBC Hgb Hct MCV MCH MCHC RDW Std Deviation RDW Coeff of Ankit Plt Count MPV Immature Gran % (Auto) Neut % (Auto) Lymph % (Auto) [place] % (Auto) Eos % (Auto) Baso % (Auto) Neut # (Auto) Lymph # (Auto) [place] # (Auto) Eos # (Auto) Baso # (Auto) Immature Gran # (Auto) PT INR Sodium Potassium Chloride Carbon Dioxide Anion Gap BUN Creatinine Est Cr Clr Drug Dosing Est GFR ( Amer) Est GFR (Non-Af Amer) BUN/Creatinine Ratio Glucose POC Glucose Estimat Average Glucose Hemoglobin A1c Lactate 1.5 Calcium Magnesium Troponin I Bld Cult Staph aureus PCR Blood Culture MRSA PCR Medications Administered Current Inpatient Medications Acetaminophen (Acetaminophen 325 Mg Tab) 650 mg PO Q4H PRN PRN Reason: Pain or Fever Stop: 12/19/19 17:59 Atorvastatin Calcium (Atorvastatin 40 Mg Tab) 80 mg PO HS [facility] Stop: 12/19/19 20:59 Last Admin: 11/19/19 22:11 Dose: Not Given Documented by: Citalopram Hydrobromide (Citalopram 20 Mg Tab) 20 mg PO HS [facility] Stop: 12/19/19 20:59 Last Admin: 11/19/19 22:10 Dose: Not Given Documented by: Dextrose (Dextrose 50% 50 Ml Syringe) 25 - 50 ml IV UD PRN; Protocol PRN Reason: Hypoglycemia Protocol Stop: 12/19/19 17:59 Glucagon (Glucagon For Inj 1 Mg Vial) 1 mg SQ UD PRN; Protocol PRN Reason: Hypoglycemia Protocol Stop: 12/19/19 17:59 Glucose (Glucose 10 Tabs/Tube) 4 - 8 tabs PO UD PRN; Protocol PRN Reason: Hypoglycemia Protocol Stop: 12/19/19 17:59 Glucose (Glucose 40% Gel 15 Gm Tube) 15 - 30 gm PO UD PRN; Protocol PRN Reason: Hypoglycemia Protocol Stop: 12/19/19 17:59 Heparin Sodium (Porcine) (Heparin Sod 5,000 Unit/0.5 Ml Vial) 5,000 units SQ Q12 [facility] Stop: 12/20/19 20:59 Sodium Chloride (Nss) 500 mls @ 125 mls/hr IV .Q4H [facility] Stop: 12/19/19 11:59 Last Admin: 11/20/19 15:56 Dose: 125 mls/hr Documented by: Ceftriaxone Sodium 1,000 mg/ (Dextrose) 50 mls @ 100 mls/hr IV Q24H [facility]; Protocol Stop: 11/25/19 23:59 Last Infusion: 11/20/19 12:24 Dose: Infused Documented by: Metronidazole (Flagyl) 500 mg in 100 mls @ 100 mls/hr IV Q8H [facility]; Protocol Stop: 11/27/19 10:00 Last Infusion: 11/20/19 14:04 Dose: Infused Documented by: Doxycycline Hyclate 100 mg/ (Dextrose) 110 mls @ 55 mls/hr IV Q12H [facility]; Protocol Stop: 12/04/19 14:59 Last Admin: 11/20/19 15:56 Dose: 55 mls/hr Documented by: Levothyroxine Sodium 12.5 mcg/ (Syringe) 0.625 mls @ 2 mls/min IV DAILY@0900 [facility] Stop: 12/21/19 08:59 Insulin Aspart (Insulin Aspart 100 Units/Ml 3 Ml Pen) 0 units SC Q6 [facility] Stop: 12/19/19 17:59 Last Admin: 11/20/19 12:03 Dose: Not Given Documented by: Insulin Glargine (Insulin Glargine Solostar 100 Units/Ml 3 Ml Pen) 10 units SC BID [facility] Stop: 12/19/19 20:59 Last Admin: 11/20/19 08:53 Dose: 10 units Documented by: Levothyroxine Sodium (Levothyroxine Sodium 25 Mcg Tablet) 25 mcg PO HS [facility] Stop: 12/19/19 20:59 Last Admin: 11/19/19 22:11 Dose: Not Given Documented by: Miscellaneous (Carbohydrates For Hypoglycemia ) 15 - 30 gm PO UD PRN PRN Reason: Hypoglycemia Protocol Stop: 12/19/19 17:59 Pantoprazole Sodium (Pantoprazole 40 Mg Tab) 40 mg PO DAILY [facility] Stop: 12/20/19 08:59 Last Admin: 11/20/19 08:54 Dose: 40 mg Documented by: Vitamin D (Cholecalciferol 1,000 Units 25 Mcg Tab) 1,000 units PO HS [facility] Stop: 12/19/19 20:59 Last Admin: 11/19/19 22:11 Dose: Not Given Documented by: Warfarin Sodium (Warfarin Sod 1 Mg Tab) 1 mg PO DAILY@1600 [facility] Stop: 12/20/19 15:59
[2019-11-20] MEDS: cefTRIAXone SODIUM 1,000 MG in DEXTROSE 5% 50 ML IV SCH (11:53)
--- NOTE | 2019-11-20 13:03 | Electrocardiogram Report ---
Test Reason : Blood Pressure : / mmHG Vent. Rate : 060 BPM Atrial Rate : 000 BPM P-R Int : 000 ms QRS Dur : 098 ms QT Int : 534 ms P-R-T Axes : 000 031 057 degrees QTc Int : 534 ms Atrial fibrillation Low voltage QRS Anterior infarct , age undetermined (cited on or before 12-SEP-2017) Prolonged QT Abnormal ECG When compared with ECG of 19-NOV-2019 09:56, Significant changes have occurred Confirmed by David Natarajan ([id number]) on 11/20/2019 1:03:28 PM Referred By: REFERRED SELF Confirmed By:David Natarajan
--- NOTE | 2019-11-20 14:05 | Hospitalist Progress Note ---
Date of Service November 20, 2019 Assessment & Plan (1) Sepsis: Meet sepsis criteria with tachycardia, leukocytosis with elevated lactate Possible related to aspiration pneumonia and bacteremia CXR showed bibasilar opacities, likely representing compressive atelectasis although a superimposed infectious/inflammatory process cannot be excluded Blood cx positive for gram positive cocci in clusters PCR MRSA and staph negative - Seems to be mostly coag negative staph Will add doxycycline Will repeat blood cx ECHO pending (2) Hypoxia: (3) Aspiration pneumonia: CXR showed bibasilar opacities, likely representing compressive atelectasis although a superimposed infectious/inflammatory process cannot be excluded On IV ceftrizone and flagyl for now Doxycycline added Continue oxygen supplement and neb treatment Speech on board- Failed bedside swallow Speech will assess her later Keep NPO for now (4) Elevated troponin: Mostly related to sepsis and hypoxia Troponin on admission 0.157, then peaked to 0.410 Troponin slightly trending down to 0.393 cardiology on board Case discussed with cardio that recommended conservative management Denies any chest pain ECHO pending Continue statin (5) Acute metabolic encephalopathy: Mostly related to sepsis and hypoxia CT head showed no finding Continue monitor (6) Chronic atrial fibrillation: Rate controlled No Beta patricia on med rec Cardio on board INR was supratherapeutic on admission and received vitamin K Will resume coumadin Continue monitor (7) Supratherapeutic INR: INR on admission 6.5 . No sign of bleeding Received Vit K 2.5 IV in the ER. INR 1.8 today Will resume her coumadin (8) CKD (chronic kidney disease), stage IV: Creatinine 2.07 at baseline. Avoid nephrotoxic substances. Continue monitor BMP (9) Depression: Will resume her PO Citalopram once able to tolerate PO Stable (10) H/O: stroke with residual effects: CT head showed no acute finding Continue statin Will resume Coumadin once able to take PO Stable (11) Dementia: Continue to reoriented her and keep room dark at night and bright during the day (12) DMII (diabetes mellitus, type 2): Most recent Hba1c 5.1 BS stable Will hold insulin since pt is NPO to avoid hypoglycemia If becomes hypoglycemia, will change the fluid to D5W Continue monitor BS (13) DVT prophylaxis: On SCDs INR 1.8 today after receiving Vit K Will resume coumadin once able to take PO Will add heparin subq until INR therapeutic Hypothyroidism Will change PO levothyroxine to IV Will check TSH in am CODE STATUS full Code Disposition Continue monitor in tele Admission and Anticipated Discharge Date Admission Date: November 19, 2019 Subjective Pt was seen and examined Lying in bed with no distress with daughter at bedside Pt failed swallow evaluation today where she aspirated She feels weak today Denies any chest pain, palpitation, dizziness and fever Physical Exam Physical Exam: General- No acute distress Head- atraumatic Eyes- PERRL, EOMI, ENT- oropharynx clear Neck- supple, no JVD Lungs- coarse BS Heart- regular rhythm; no murmur Abdomen- normal bowel sounds, soft, nontender Extremities- no calf tenderness Neuro- alert, oriented, PERRL, EOMI; no facial palsy; no dysarthria Skin- warm & dry Results & Data Results & Data ([facility]) Vital Signs (Past 12 Hours) Vital Signs Temp Pulse Resp BP Pulse Ox 11/20/19 12:00 36.9 C 61 16 133/60 95 11/20/19 07:58 37.0 C 62 16 142/69 H 98 11/20/19 03:00 36.7 C 62 16 139/67 95
[2019-11-20] MEDS ORDERED: MAGNESIUM SULFATE / D5W 1 GM/100 ML BAG IV ONE (15:15)
[2019-11-20] MEDS: DOXYCYCLINE HYCLATE 100 MG in DEXTROSE 5% 100 ML IV SCH (15:56)
[2019-11-20] MEDS ORDERED: WARFARIN SOD 1 MG TAB PO SCH (16:00)
[2019-11-20] MEDS: DEXTROSE 50% 50 ML SYRINGE IV PRN (18:10)
[2019-11-20] MEDS ORDERED: D5W AND NSS 1,000 ML IV SCH (18:15)
[2019-11-20] MEDS: ATORVASTATIN 40 MG TAB PO SCH (21:46)
[2019-11-20] MEDS: HEPARIN SOD 5,000 UNIT/0.5 ML VIAL SQ SCH (21:46)
[2019-11-20] MEDS: CITALOPRAM 20 MG TAB PO SCH (21:46)
[2019-11-20] MEDS: CHOLECALCIFEROL 1,000 UNITS 25 MCG TAB PO SCH (21:46)
[2019-11-21] MEDS: INSULIN ASPART 100 UNITS/ML 3 ML PEN SC SCH ×4 (00:20→18:37)
[2019-11-21] MEDS: DEXTROSE 50% 50 ML SYRINGE IV PRN (00:25)
[2019-11-21] MEDS: DEXTROSE 10% 1,000 ML IV SCH ×2 (01:37→18:00)
[2019-11-21] MEDS: DOXYCYCLINE HYCLATE 100 MG in DEXTROSE 5% 100 ML IV SCH ×2 (03:36→15:51)
[2019-11-21] MEDS: metroNIDAZOLE 500 MG/100 ML BAG IV SCH ×3 (04:43→20:37)
[2019-11-21 06:21] LABS: Hematocrit (blood only) 37.1 % (37-47); Hemoglobin 12.2 g/dL (12.0-16.0); Mean Corpuscular Hemoglobin 30.7 pg (25-34); Mean Corpuscular Hgb Conc 32.9 g/dL (32-36); Mean Corpuscular Volume 93.5 fL (80-100); Mean Platelet Volume 10.6 fL (7.4-10.4); Platelet Count 218 K/uL (130-400); RDW Coefficient of Variation 13.9 % (11.5-14.5); RDW Standard Deviation 47.5 fL (36.4-46.3); Red Blood Count 3.97 M/uL (4.2-5.4); White Blood Count 9.34 K/uL (4.8-10.8)
[2019-11-21 06:26] LABS: INR 1.4 (0.9-1.1); Prothrombin Time 14.5 Seconds (9.0-12.0)
[2019-11-21 06:56] LABS: BUN Creatinine Ratio 12.3 (10-20); Calcium 8.3 mg/dl (8.5-10.1); Creatinine Clr Calc Pharmacy 25.4 ml/min; Est GFR (African American) 30.7; Est GFR (Non-African American) 26.5; Magnesium 1.6 mg/dl (1.8-2.4); Potassium 3.5 mmol/L (3.5-5.1)
[2019-11-21 07:11] LABS: Thyroid Stimulating Hormone 3.3 uIu/ml (0.300-4.500)
[2019-11-21] MEDS ORDERED: POTASSIUM CHLORIDE / WTR 10 MEQ/100 ML PLCT IV ONE (08:00)
[2019-11-21] MEDS: MAGNESIUM SULFATE / D5W 1 GM/100 ML BAG IV SCH ×2 (08:18→18:29)
[2019-11-21] MEDS: HEPARIN SOD 5,000 UNIT/0.5 ML VIAL SQ SCH (08:19)
[2019-11-21] MEDS ORDERED: ACETAMINOPHEN 1,000 MG/100 ML VIAL IV PRN (09:15)
--- NOTE | 2019-11-21 10:23 | XRay Report ---
XR KUB/Abdomen 1 view CLINICAL HISTORY: Feeding tube placement COMPARISON STUDY: No previous studies for comparison. FINDINGS: A single view of the abdomen centered on the hemidiaphragms is provided for interpretation. There is been interval placement of a feeding tube the tip of which projects over the stomach. Note is made of bilateral pleural effusions left greater than right with associated left lower lobe atelec tasis/consolidation. IMPRESSION: The feeding tube is positioned within the stomach. ACT 112: Negative or not required by law. Electronically signed by: Butch Mcnulty M.D. 11/21/2019 10:21 AM
[2019-11-21] MEDS: NYSTATIN POWDER 15GM BTL EXT SCH (11:54)
--- NOTE | 2019-11-21 12:27 | Electrocardiogram Report ---
Test Reason : Blood Pressure : / mmHG Vent. Rate : 073 BPM Atrial Rate : 000 BPM P-R Int : 000 ms QRS Dur : 096 ms QT Int : 490 ms P-R-T Axes : 000 021 145 degrees QTc Int : 539 ms Atrial fibrillation Low voltage QRS Anterolateral infarct (cited on or before 12-SEP-2017) Prolonged QT Abnormal ECG When compared with ECG of 20-NOV-2019 06:52, Nonspecific T wave abnormality, worse in Inferior leads Confirmed by David Natarajan ([id number]) on 11/21/2019 12:26:50 PM Referred By: REFERRED SELF Confirmed By:David Natarajan
[2019-11-21] MEDS: cefTRIAXone SODIUM 1,000 MG in DEXTROSE 5% 50 ML IV SCH (13:08)
[2019-11-21] MEDS: LEVOTHYROXINE SODIUM 12.5 MCG in SYRINGE 0 ML IV SCH (14:34)
[2019-11-21] MEDS: PANTOprazole 40 MG in SYRINGE 0 ML IV SCH (14:34)
[2019-11-21] MEDS ORDERED: POTASSIUM CHLORIDE 20 MEQ/15 ML UDC PO STA (15:50)
[2019-11-21] MEDS ORDERED: NOVASOURCE RENAL 2.0 CAL 1000ML BAG NG SCH (16:30)
--- NOTE | 2019-11-21 16:36 | Hospitalist Progress Note ---
Date of Service November 21, 2019 Assessment & Plan (1) Sepsis: -Meet sepsis criteria with tachycardia, leukocytosis with elevated lactate, Possible related to aspiration pneumonia and bacteremia, CXR showed bibasilar opacities, likely representing compressive atelectasis although a superimposed infectious/inflammatory process cannot be excluded -Blood cx positive for gram positive cocci in clusters but this results as Coag neg staph not lugdunensis -repeat blood culture sent on 11/20/2019 -continue IV ceftriaxone and Flagyl and Doxycycline for now 11/21/2019 updates: Patient had hypoglycemic episode while on IV fluids with dextrose this AM. Then patient lost EJ line of the neck for IV access. ICU physician was requested to assess in case of need for central line. So far, have been able to avoid a central line at this time as patient now have left foot peripheral IV access, 2 peripheral IV access in right upper extremity, Coresafe nasal feeding tube with patient's daughter allowing for trial of NG tube feeding, alejo (2) Aspiration pneumonia: -admission CXR showed bibasilar opacities, likely representing compressive atelectasis although a superimposed infectious/inflammatory process cannot be excluded -she initially failed the bedside swallow test -On IV ceftriaxone and Flagyl and Doxycycline -tube feeds for now as above (3) Hypoxia: -Secondary to poss aspiration pneumonia -on antibiotics and supplementary oxygen (4) Acute metabolic encephalopathy: -Mostly related to sepsis and hypoxia with underlying dementia admission CT head showed no finding (5) Chronic atrial fibrillation: -Rate controlled, no Beta patricia on med rec -monitor on telemetry -avoid pharmacological anticoagulation for no in case of need for central line (6) Supratherapeutic INR: -INR on admission 6.5, No sign of bleeding, Received Vit K 2.5 IV in the ER. -INR is subtherapeutic -avoid pharmacological anticoagulation for no in case of need for central line (7) Elevated troponin: -Mostly related to sepsis and hypoxia -Troponin on admission 0.157, then peaked to 0.410 the trended down to 0.393 -Case discussed with cardio that recommended conservative management. The 11/20/2019 vp rheumatology assessment that "Minimal troponin elevation and slight EKG changes in the setting of hypoxia due to aspiration pneumonia. I do not believe this represents an acute ischemic event" A 2D echocardiogram performed 11/20/2019 did not find any wall motion abnormalities (8) DMII (diabetes mellitus, type 2): -Most recent Hba1c 5.1 -hypoglycemia in AM of 11/21/2019 when on IV fludis with dextrose -hold insulin for now and titrate as needed based on blood sugars while on NG tube feeds Hypothyroidism -currently on levothyroxine IV -TSH is 3.3 which is currently a normal TSH level (9) CKD (chronic kidney disease), stage IV: -admission Creatinine 2.07 which is at baseline -creatinine is 1.77 on 11/21/2019 (10) H/O: stroke with residual effects: -history of stroke 2 years ago -this admission CT head showed no acute finding -statin and coumadin held for now, while with very narrow NG feeding tube (11) Dementia: -patient has dementia since stroke 2 years ago and generally minimal speech baseline and minimally mobile at baseline (12) Depression: -holding home dose citalopram for now (13) DVT prophylaxis: -SCDs to right leg only to avoid disrupting the left foot IV access -avoid pharmcological anticoagulation for no in case of need for central line CODE STATUS full Code Daughter Farzaneh [phone] who helps patient makes the medical decisions Admission and Anticipated Discharge Date Admission Date: November 19, 2019 Subjective Patient had hypoglycemic episode while on IV fluids with dextrose this AM. Then patient lost EJ line of the neck for IV access. ICU physician was requested to assess in case of need for central line. So far, have been able to avoid a central line at this time as patient now have left foot peripheral IV access, 2 peripheral IV access in right upper extremity, Coresafe nasal feeding tube with patient's daughter allowing for trial of NG tube feeding, alejo Patient generally lethargic but at times responds to commands. As per her daughter, patient has dementia since stroke 2 years ago and generally minimal speech baseline and minimally mobile at baseline Review of Systems Review of Systems: Unobtainable due to cognitive status Physical Exam Constitutional: + ill appearing ENMT: Coresafe NG tube Neck: trachea midline, no thyromegaly normal visual inspection Respiratory: normal respiratory effort Cardiovascular: Rate/Rhythm: + bradycardic Gastrointestinal (Abdomen): normal bowel sounds, soft, nontender, no hepatosplenomegaly Musculoskeletal: Head/Neck/Chest: normocephalic Neurologic: lethargic Genitourinary: alejo Results & Data Results & Data ([facility]) Vital Signs (Past 12 Hours) Vital Signs Temp Pulse Pulse Resp BP Pulse Ox 11/21/19 15:31 37.0 C 63 22 110/58 L 100 11/21/19 11:39 36.7 C 61 20 113/65 100 11/21/19 08:00 36.7 C 74 16 128/81 99 11/21/19 07:18 75
[2019-11-21] MEDS ORDERED: IMPACT LIQD 1.0 CAL 1,000 ML BAG NG SCH (17:45)
[2019-11-21] MEDS: PANTOprazole 40 MG TAB PO SCH (17:51)
--- NOTE | 2019-11-21 17:58 | Critical Care Consultation ---
Date of Consultation November 21, 2019 Assessment & Plan (1) Poor intravenous access: 79-year-old female with a past medical history of severe dementia, CKD, diastolic heart failure, obesity, hypertension and diabetes mellitus type 2. I do not see any pressing need for central venous access at this time. A central line is not a benign procedure as it could lead to infection, pneumothorax, venous thromboembolism, air embolism and patient discomfort among other problems. Patient had an EJ that apparently infiltrated on the left side. NG tube is in place. She does not appear to be in any significant renal failure. Her blood cultures previously were likely contaminants. Hypoglycemia appears to be improving. I would recommend transitioning antibiotics to oral for possible pneumonia. Her albumin is very low. I think her overall prognosis extremely poor. I would recommend a palliative care consultation. Recommend reattempting peripheral IV access tomorrow. (2) Hypoalbuminemia due to protein-calorie malnutrition: (3) Hypoxia: (4) Severe dementia: (5) Diastolic CHF, acute on chronic: History of Present Illness Reason for Consultation: IV access Requesting Physician: Dr. Gurjit Barajas Attending Physician: Gurjit Barajas MD History of Present Illness 79-year-old female with a past medical history of advanced dementia, stage II sacral decubitus ulcers, CKD stage III, hypertension, chronic atrial fibrillation and a history of diabetes mellitus type 2 presenting to the hospital with altered mental status, bacteremia with coag negative staph, possible contaminant, and acute on chronic diastolic CHF.. History is unobtainable from the patient as she is altered. There is been issues with IV access. IV team has tried twice to obtain access with ultrasound. Patient does not appear in any significant distress currently. She did shake her head no when I asked her if she is in any pain. She is afebrile currently. Saturating 100 % on 2 L nasal cannula. Blood cultures are positive for gram-positive cocci from 11/19/2019. Repeat blood cultures have been negative to date. She also had some issues with hypoglycemia. I suggested that the patient have an NG tube placed which was placed. Chest x-ray demonstrates bibasilar opacities possibly atelectasis and mild CHF with bilateral effusions. INR today was 1.4. Platelet count 218,000. Creatinine is 1.77. Her baseline creatinine is roughly 2.0. BUN 22. Allergies Allergy/AdvReac Type Severity Reaction Status Date / Time Bactrim Allergy Unknown PER ECF, Verified 11/24/17 11:37 NO RXN PROVIDED Penicillins Allergy Unknown PER ECF, Verified 11/19/19 11:03 NO RXN PROVIDED sulfamethoxazole Allergy Unknown PER ECF, Verified 11/19/19 11:03 NO RXN PROVIDED trimethoprim Allergy Unknown PER ECF, Verified 11/19/19 11:03 NO RXN PROVIDED azithromycin Allergy Rash Verified 11/19/19 11:03 Cipro AdvReac Mild "DELIRIUM" Verified 11/24/17 11:37 ciprofloxacin AdvReac Mild "DELIRIUM" Verified 11/19/19 11:03 Home Medications Home Medications Medication Instructions Recorded Confirmed Type atorvastatin [Lipitor] 80 mg PO HS 12/13/17 11/19/19 History cholecalciferol (vitamin D3) 1,000 unit PO HS 12/13/17 11/19/19 History [Vitamin D3] citalopram 20 mg PO HS 12/13/17 11/19/19 History cyanocobalamin (vitamin B-12) 1,000 mcg PO HS 12/13/17 11/19/19 History [Vitamin B-12] multivitamin 1 tab PO HS 12/13/17 11/19/19 History ferrous sulfate 325 mg PO HS 01/08/19 11/19/19 History omeprazole 40 mg PO HS 01/08/19 11/19/19 History warfarin 1 mg PO LEIVA@2100 01/08/19 11/19/19 History warfarin 2 mg PO MOTUWETHFRSA@2100 01/08/19 11/19/19 History levothyroxine [Euthyrox] 25 mcg PO HS 11/19/19 11/19/19 History Patient History Medical History Atrial fibrillation Bacteremia Cerebral infarction Chronic kidney disease Depression Diabetes 1.5, managed as type 2 Essential (primary) hypertension GERD (gastroesophageal reflux disease) Intracranial pyogenic abscess Nephrolithiasis, uric acid Obesity (BMI 30-39.9) Orthostatic hypotension Osteoarthritis Surgical History History of esophagogastroduodenoscopy (EGD) History of lithotripsy Family History Mother Diabetes Social History Smoking Status: Never smoker Hx Alcohol Use: No Hx Substance Use: No Preferred Language: Afghan Communication Ability: Impaired Communication Ability Comment: only will give one word responses Visual Impairment: No Limitations Medical Records Administrator Required: No Beliefs That Will Affect Care: None Current Living Situation: Family Current Living Situation Comment: lives with daughter and family Other Information That Helps Us Care for You: No Feels Safe at Home: Yes Safety Concerns: Feels Safe At This Time Physical Exam Constitutional: Patient is altered. She does not appear to be in any distress. Unable to answer questions other than nodding her head on occasion. Eyes: PERRL, conjunctivae normal, anicteric sclerae ENMT: external ear and nose normal, oropharynx normal Ears: + hearing impairment Neck: normal visual inspection Respiratory: Freckles at the bases. Cardiovascular: RRR, no murmur, no edema Gastrointestinal (Abdomen): normal bowel sounds, soft, nontender, no hepatosplenomegaly Musculoskeletal: no cyanosis or clubbing, extremities motor strength 5/5 Skin: no rashes, warm and dry Neurologic: PERRL, EOMI, accommodation nl, no face palsy, no dysarthria Psychiatric: A+Ox3, euthymic affect Results & Data Results & Data ([facility]) Vital Signs (Past 12 Hours) Vital Signs Temp Pulse Pulse Resp BP Pulse Ox 11/21/19 15:31 98.6 F 63 22 110/58 L 100 11/21/19 11:39 98.1 F 61 20 113/65 100 11/21/19 08:00 98.1 F 74 16 128/81 99 11/21/19 07:18 75 I reviewed vital signs, labs and chest imaging Coding Level of Care Code 23223 Inpt Consult Level 4 Diagnoses Poor intravenous access Z78.9 Hypoalbuminemia due to protein-calorie malnutrition E88.09; E46 Hypoxia R09.02 Severe dementia F03.90 Diastolic CHF, acute on chronic I50.33
[2019-11-21] MEDS ORDERED: MAGNESIUM SULFATE / D5W 1 GM/100 ML BAG IV SCH (18:00)
[2019-11-21] MEDS: POTASSIUM CHLORIDE 20 MEQ/15 ML UDC PO STA ×2 (18:30→23:14)
[2019-11-21] MEDS: TUBE FEEDING WATER FLUSH NG SCH (18:37)
[2019-11-22] MEDS: INSULIN ASPART 100 UNITS/ML 3 ML PEN SC SCH ×4 (00:24→18:57)
[2019-11-22] MEDS: TUBE FEEDING WATER FLUSH NG SCH ×2 (02:34→09:03)
[2019-11-22] MEDS: DOXYCYCLINE HYCLATE 100 MG in DEXTROSE 5% 100 ML IV SCH ×2 (03:49→13:45)
[2019-11-22] MEDS: metroNIDAZOLE 500 MG/100 ML BAG IV SCH ×3 (03:49→19:11)
[2019-11-22 06:31] LABS: Basophils # (auto) 0.03 K/uL (0-0.2); Basophils % (auto) 0.4 %; Eosinophils # (auto) 0.06 K/uL (0-0.5); Eosinophils % (auto) 0.8 %; Hematocrit (blood only) 33.8 % (37-47); Immature Granulocytes # (auto) 0.02 K/uL (0.00-0.02); Immature Granulocytes % (auto) 0.3 %; Lymphocytes # (auto) 1.16 K/uL (1.2-3.4); Lymphocytes % (auto) 14.8 %; Mean Corpuscular Hemoglobin 30.5 pg (25-34); Mean Corpuscular Hgb Conc 32.5 g/dL (32-36); Mean Corpuscular Volume 93.6 fL (80-100); Mean Platelet Volume 10.2 fL (7.4-10.4); Monocytes # (auto) 0.49 K/uL (0.11-0.59); Monocytes % (auto) 6.2 %; Neutrophils # (auto) 6.09 K/uL (1.4-6.5); Neutrophils % (auto) 77.5 %; Platelet Count 215 K/uL (130-400); RDW Coefficient of Variation 13.9 % (11.5-14.5); RDW Standard Deviation 48.1 fL (36.4-46.3); Red Blood Count 3.61 M/uL (4.2-5.4); White Blood Count 7.85 K/uL (4.8-10.8)
[2019-11-22 06:39] LABS: INR 1.4 (0.9-1.1)
[2019-11-22 06:47] LABS: BUN Creatinine Ratio 11.5 (10-20); Calcium 8.1 mg/dl (8.5-10.1); Creatinine Clr Calc Pharmacy 29.5 ml/min; Est GFR (Non-African American) 31.1; Magnesium 2.3 mg/dl (1.8-2.4); Potassium 3.6 mmol/L (3.5-5.1)
[2019-11-22] MEDS: D5W AND 1/2NSS 1,000 ML IV SCH (07:32)
[2019-11-22] MEDS: LEVOTHYROXINE SODIUM 12.5 MCG in SYRINGE 0 ML IV SCH (09:02)
[2019-11-22] MEDS: NYSTATIN POWDER 15GM BTL EXT SCH (09:03)
--- NOTE | 2019-11-22 09:15 | Cardiology Progress Note ---
Date of Service November 22, 2019 Assessment & Plan (1) Elevated troponin: (2) Hypoxia: (3) DMII (diabetes mellitus, type 2): (4) Supratherapeutic INR: (5) Aspiration pneumonia: Minimal troponin elevation and slight EKG changes in the setting of hypoxia due to aspiration pneumonia. I do not believe this represents an acute ischemic event. echocardiogram performed revealed preserved LV systolic function without regional wall motion abnormality and moderate to severe mitral regurgitation. No medication changes will be made today, okay to DC telemetry from a cardiac standpoint. Looking at the patient's baseline functional status along with current episode of aspiration I believe palliative care consultation is appropriate. The patient is currently a full code and should she going to cardiac arrest I believe any attempts to revive would be futile. there is also the appearance of chronic lack of care given her significant decubitus ulcer, cachectic appearance and poor hygiene. I believe ethics evaluation for code status and future goals of care may be of benefit Admission and Anticipated Discharge Date Admission Date: November 19, 2019 Subjective Patient seen and examined, chart reviewed. Nursing reports patient is somewhat more responsive today, however, not responsive to verbal or physical stimuli at the time of my examination. Telemetry reviewed: Atrial fibrillation, rate controlled Review of Systems Review of Systems: Unobtainable due to reduced consciousness Physical Exam Physical Exam: General: unresponsive, obtunded. No acute distress. Cachectic in appearance HEENT: Normocephalic, atraumatic. Pupils equal, round and reactive to light and accommodation. Extraocular muscles are intact. Anicteric sclera. Moist mucous membranes. Neck: No JVD. No bruit. Cardiovascular: irregularly irregular, unable to appreciate murmur, rub or gallop. Pulmonary: Clear to auscultation bilaterally. No rales, rhonchi, or wheezing. Abdomen: Bowel sounds x 4, soft. No rebound, guarding or tenderness. No organomegaly. Extremities: No clubbing, cyanosis or edema. +2 pedal pulses bilaterally. Skin: Warm and dry. Results & Data ([facility]) Vital Signs (Past 12 Hours) Vital Signs Temp Pulse Resp BP Pulse Ox 11/22/19 07:57 36.5 C 73 16 142/65 H 92 11/22/19 04:00 36.6 C 70 20 147/77 H 99 11/21/19 23:13 36.6 C 63 18 141/64 H 100
--- NOTE | 2019-11-22 11:01 | Hospitalist Progress Note ---
Date of Service November 22, 2019 Assessment & Plan (1) Sepsis: -Meet sepsis criteria with tachycardia, leukocytosis with elevated lactate, Possible related to aspiration pneumonia and bacteremia, CXR showed bibasilar opacities, likely representing compressive atelectasis although a superimposed infectious/inflammatory process cannot be excluded -Blood cx positive for gram positive cocci in clusters but this results as Coag neg staph not lugdunensis -repeat blood culture sent on 11/20/2019 -continue IV ceftriaxone and Flagyl and Doxycycline for now 11/21/2019 updates: Patient had hypoglycemic episode while on IV fluids with dextrose this AM. Then patient lost EJ line of the neck for IV access. ICU physician was requested to assess in case of need for central line. So far, have been able to avoid a central line at this time as patient now have left foot peripheral IV access, 2 peripheral IV access in right upper extremity, alejo placed, Coresafe nasal feeding tube with patient's daughter allowing for trial of NG tube feeding however the Coresafe later failed to flush and had to be removed. Daughter affirmed with medical doctor of full code status and while tube feedings are allowed on temporary basis that patient and family would not want PEG tube as a adjunct faculty for medical terminology way to feed 11/22/2019: NG tube could not be replaced overnight. serum glucose 70 in the AM. IV fluids with dextrose started. The IV access of the right arm and left foot are in place. Reviewed with nurse that patient's wound care notes of "Pt's buttocks and sacrum have healed ulcerations and are very macerated." Patient more awake and alert today. She is able to answer questions and denies acute pain. patient is awaiting to be seen by speech and swallow services. cardiology consult following the patient requested palliative care to follow the patient and engage further with her family members on goals of care. (2) Aspiration pneumonia: -admission CXR showed bibasilar opacities, likely representing compressive atelectasis although a superimposed infectious/inflammatory process cannot be excluded -she initially failed the bedside swallow test -On IV ceftriaxone and Flagyl and Doxycycline -awaiting further speech and swallow evaluation (3) Hypoxia: -Secondary to poss aspiration pneumonia -on antibiotics and supplementary oxygen (4) Acute metabolic encephalopathy: -Mostly related to sepsis and hypoxia with underlying dementia admission CT head showed no finding (5) Chronic atrial fibrillation: -Rate controlled, no Beta patricia on med rec -monitor on telemetry -avoid pharmacological anticoagulation for now in case of need for central line (6) Supratherapeutic INR: -INR on admission 6.5, No sign of bleeding, Received Vit K 2.5 IV in the ER. -INR is subtherapeutic -avoid pharmacological anticoagulation for now in case of need for central line (7) Elevated troponin: -Mostly related to sepsis and hypoxia -Troponin on admission 0.157, then peaked to 0.410 the trended down to 0.393 -Case discussed with cardio that recommended conservative management. The 11/20/2019 industrial organization manager assessment that "Minimal troponin elevation and slight EKG changes in the setting of hypoxia due to aspiration pneumonia. I do not believe this represents an acute ischemic event" A 2D echocardiogram performed 11/20/2019 did not find any wall motion abnormalities (8) DMII (diabetes mellitus, type 2): -Most recent Hba1c 5.1 -hypoglycemia in AM of 11/21/2019 when on IV fluid with dextrose -sliding scale insulin as needed Hypothyroidism -currently on levothyroxine IV -TSH is 3.3 which is currently a normal TSH level (9) CKD (chronic kidney disease), stage IV: -admission Creatinine 2.07 which is at baseline -creatinine is 1.77 on 11/21/2019 and 1.55 on 11/22/2019 (10) H/O: stroke with residual effects: -history of stroke 2 years ago -this admission CT head showed no acute finding -statin and coumadin held for now while minimal oral intake (11) Dementia: -patient has dementia since stroke 2 years ago and generally minimal speech baseline and minimally mobile at baseline (12) Depression: -holding home dose citalopram for now (13) DVT prophylaxis: -SCDs to right leg only to avoid disrupting the left foot IV access -avoid pharmcological anticoagulation for now in case of need for central line CODE STATUS full Code Daughter Farzaneh [phone] who helps patient makes the medical decisions Admission and Anticipated Discharge Date Admission Date: November 19, 2019 Subjective NG tube could not be replaced overnight. serum glucose 70 in the AM. IV fluids with dextrose started. The IV access of the right arm and left foot are in place. Reviewed with nurse that patient's wound care notes of "Pt's buttocks and sacrum have healed ulcerations and are very macerated." Patient more awake and alert today. She is able to answer questions and denies acute pain. patient is awaiting to be seen by speech and swallow services. cardiology consult following the patient requested palliative care to follow the patient and engage further with her family members on goals of care. Review of Systems Review of Systems: All systems reviewed & are unremarkable except as noted in Subjective Physical Exam Constitutional: + ill appearing Eyes: PERRL, conjunctivae normal, anicteric sclerae EOM intact bilaterally ENMT: external ear and nose normal, oropharynx normal Neck: trachea midline, no thyromegaly normal visual inspection Respiratory: normal respiratory effort Cardiovascular: Rate/Rhythm: regular rate and + irregularly irregular Gastrointestinal (Abdomen): normal bowel sounds, soft, nontender, no hepatosplenomegaly Musculoskeletal: Head/Neck/Chest: normocephalic Neurologic: PERRL, EOMI, accommodation nl, no face palsy, no dysarthria Psychiatric: Orientation: alert Genitourinary: + bladder abnormality (alejo in place) Results & Data Results & Data ([facility]) Vital Signs (Past 12 Hours) Vital Signs Temp Pulse Resp BP Pulse Ox 11/22/19 07:57 36.5 C 73 16 142/65 H 92 11/22/19 04:00 36.6 C 70 20 147/77 H 99 11/21/19 23:13 36.6 C 63 18 141/64 H 100
[2019-11-22] MEDS: cefTRIAXone SODIUM 1,000 MG in DEXTROSE 5% 50 ML IV SCH (11:52)
[2019-11-22] MEDS: PANTOprazole 40 MG in SYRINGE 0 ML IV SCH (11:52)
--- NOTE | 2019-11-22 16:43 | Palliative Care Consultation ---
Date of Consultation November 22, 2019 Assessment & Plan (1) Palliative care encounter: Patient is an 79-year-old female with a past medical history significant for mild to moderate dementia, diastolic CHF, A. fib, diabetes, history of CVA, hypertension and falls who has a long history of occasionally choking on food. Patient has had prior admissions for UTIs-generally he returns to her prior baseline after treatment. Patient was admitted on 11/18 for altered mental status. Patient's UA was positive and she was put on IV antibiotics. Patient's mental status has improved over the last 2 days-patient is more alert, knows she is in the hospital, knows the year is 2019 however she thinks is March. Daughter reports that patient is usually fairly well oriented except for month and day of the week. Patient had not had required thickened liquids or any other diet modifications prior to this admission. Patient did have a swallow eval January of last year-that did not show aspiration, however with MANAGER [facility]ST eval she is having overt aspiration even with ice chips. -Patient seen and examined initially-no family at bedside. Spoke with daughter by phone-she was on her way in. -Met with patient's daughter as well as attending physician, Dr. Barajas-reviewed her current status as well as findings on MANAGER PEST eval this a.m. -Daughter reports patient would not want a surgical feeding tube, course safe was unable to be placed this patient cannot initiate a swallow. Daughter would like some more time to see how patient does now that she is becoming more alert. Will ask MANAGER PEST to come by tomorrow and reevaluate. -Depending on outcome of tomorrow's evaluation, will readdress goals with daughter regarding home with home health and MANAGER [facility], did mention possible hospice referral if swallowing does not improve. -Did not address CODE STATUS at this time as patient will remain n.p.o. until the morning, she is currently on IV fluids-did not feel the daughter was ready to have that discussion at this time. -Patient is , she has 4 children, she lives with 2 of her daughters, Melly who is her primary caregiver, her other daughter that lives at home has Down syndrome. Patient reports that her two other children do not assist with her care. Patient is primarily bedbound, family is able to transfer her. Daughter reports patient is able to feed herself. -Patient is currently on IV antibiotics as well as IV Synthroid and IV PPI. -Will continue to follow and assist family with medical decision making. -PPS 30% (2) Aspiration pneumonia: MANAGER PEST to continue therapy, request reevaluation in a.m. now that patient is more awake and alert (3) Dysphasia: Patient would not want surgical feeding tube, family supports that decision (4) Diastolic CHF, acute on chronic: (5) Altered mental status: Improving with treatment of UTI (6) UTI (urinary tract infection): On IV antibiotics History of Present Illness Reason for Consultation: Discuss goals of care in a patient that is aspirating is currently a full code Requesting Physician: Dr. Gurjit Barajas Attending Physician: Gurjit Barajas MD History of Present Illness Patient is an 79-year-old female with a past medical history significant for mild to moderate dementia, diastolic CHF, A. fib, diabetes, history of CVA, hypertension and falls who has a long history of occasionally choking on food. Patient has had prior admissions for UTIs-generally he returns to her prior baseline after treatment. Patient was admitted on 11/18 for altered mental stat us. Patient's UA was positive and she was put on IV antibiotics. Patient's mental status has improved over the last 2 days-patient is more alert, knows she is in the hospital, knows the year is 2019 however she thinks is March. Daughter reports that patient is usually fairly well oriented except for month and day of the week. Patient had not had required thickened liquids or any other diet modifications prior to this admission. Patient did have a swallow eval January of last year-that did not show aspiration, however with MANAGER PEST eval she is having overt aspiration even with ice chips. -Patient seen and examined initially-no family at bedside. Spoke with daughter by phone-she was on her way in. -Met with patient's daughter as well as attending physician, Dr. Barajas-reviewed her current status as well as findings on MANAGER PEST eval this a.m. -Daughter reports patient would not want a surgical feeding tube, course safe was unable to be placed this patient cannot initiate a swallow. Daughter would like some more time to see how patient does now that she is becoming more alert. Will ask MANAGER PEST to come by tomorrow and reevaluate. -Depending on outcome of tomorrow's evaluation, will readdress goals with daughter regarding home with home health and MANA[facility], did mention possible hospice referral if swallowing does not improve. -Did not address CODE STATUS at this time as patient will remain n.p.o. until the morning, she is currently on IV fluids-did not feel the daughter was ready to have that discussion at this time. -Patient is , she has 4 children, she lives with 2 of her daughters, Melly who is her primary caregiver, her other daughter that lives at home has Down syndrome. Patient reports that her two other children do not assist with her care. Patient is primarily bedbound, family is able to transfer her. Daughter reports patient is able to feed herself. -Patient is currently on IV antibiotics as well as IV Synthroid and IV PPI. -Will continue to follow and assist family with medical decision making. -PPS 30% Allergies Allergy/AdvReac Type Severity Reaction Status Date / Time Bactrim Allergy Unknown PER ECF, Verified 11/24/17 11:37 NO RXN PROVIDED Penicillins Allergy Unknown PER ECF, Verified 11/19/19 11:03 NO RXN PROVIDED sulfamethoxazole Allergy Unknown PER ECF, Verified 11/19/19 11:03 NO RXN PROVIDED trimethoprim Allergy Unknown PER ECF, Verified 11/19/19 11:03 NO RXN PROVIDED azithromycin Allergy Rash Verified 11/19/19 11:03 Cipro AdvReac Mild "DELIRIUM" Verified 11/24/17 11:37 ciprofloxacin AdvReac Mild "DELIRIUM" Verified 11/19/19 11:03 Home Medications Home Medications Medication Instructions Recorded Confirmed Type atorvastatin [Lipitor] 80 mg PO HS 12/13/17 11/19/19 History cholecalciferol (vitamin D3) 1,000 unit PO HS 12/13/17 11/19/19 History [Vitamin D3] citalopram 20 mg PO HS 12/13/17 11/19/19 History cyanocobalamin (vitamin B-12) 1,000 mcg PO HS 12/13/17 11/19/19 History [Vitamin B-12] multivitamin 1 tab PO HS 12/13/17 11/19/19 History ferrous sulfate 325 mg PO HS 01/08/19 11/19/19 History omeprazole 40 mg PO HS 01/08/19 11/19/19 History warfarin 1 mg PO LEIVA@2100 01/08/19 11/19/19 History warfarin 2 mg PO MOTUWETHFRSA@2100 01/08/19 11/19/19 History levothyroxine [Euthyrox] 25 mcg PO HS 11/19/19 11/19/19 History Patient History Medical History Atrial fibrillation Bacteremia Cerebral infarction Chronic kidney disease Depression Diabetes 1.5, managed as type 2 Diastolic CHF, acute on chronic Essential (primary) hypertension GERD (gastroesophageal reflux disease) Hypoalbuminemia due to protein-calorie malnutrition Intracranial pyogenic abscess Nephrolithiasis, uric acid Obesity (BMI 30-39.9) Orthostatic hypotension Osteoarthritis Poor intravenous access Severe dementia Surgical History History of esophagogastroduodenoscopy (EGD) History of lithotripsy Family History Mother Diabetes Social History Smoking Status: Never smoker Hx Alcohol Use: No Hx Substance Use: No Preferred Language: Bangladeshi Communication Ability: Impaired Communication Ability Comment: only will give one word responses Visual Impairment: No Limitations After School Program Coordinator Required: No Beliefs That Will Affect Care: None Current Living Situation: Family Current Living Situation Comment: lives with daughter and family Other Information That Helps Us Care for You: No Feels Safe at Home: Yes Safety Concerns: Feels Safe At This Time Review of Systems Review of Systems: Patient denies pain, fever, chills, chest pain, shortness of breath, or abdominal pain Physical Exam Physical Exam: PE: Patient arousable, alert, was able to answer most questions appropriately HEENT: EOMI, mild [place] Respirations: Unlabored, diminished both bases, unable to take a very deep breath CV: Regular rate, positive edema upper extremities greater than lower extremities Abdomen: Soft, nontender Musculoskeletal: Patient bedbound Neuro: Patient oriented to person place and year Results & Data ([facility]) Vital Signs (Past 12 Hours) Vital Signs Temp Pulse Pulse Resp BP BP Pulse Ox 11/22/19 15:51 98.6 F 65 16 145/57 H 96 11/22/19 11:52 98.4 F 64 16 156/58 H 93 11/22/19 08:00 72 11/22/19 07:57 97.7 F 73 16 142/65 H 92 PG Care Time/CCT Total # of Minutes Spent Total Time Spent with Patient: Total time spent 55 minutes with greater than 50% of the time spent at bedside assessing patient's current functional status, mental status as well as meeting with the daughter and attending physician regarding feeding tube and goals of care. Coding Level of Care Code 55209 Inpt Consult Level 2 Diagnoses Palliative care encounter Z51.5 Aspiration pneumonia J69.0 Dysphasia R47.02 Diastolic CHF, acute on chronic I50.33 Altered mental status R41.82 UTI (urinary tract infection) N39.0 Time Spent (min) 55
[2019-11-23] MEDS: DOXYCYCLINE HYCLATE 100 MG in DEXTROSE 5% 100 ML IV SCH ×2 (03:49→15:29)
[2019-11-23] MEDS: D5W AND 1/2NSS 1,000 ML IV SCH (04:57)
[2019-11-23] MEDS: metroNIDAZOLE 500 MG/100 ML BAG IV SCH ×3 (04:58→20:18)
[2019-11-23] MEDS: INSULIN ASPART 100 UNITS/ML 3 ML PEN SC SCH ×4 (06:03→17:43)
[2019-11-23] MEDS ORDERED: GLYCERIN ADULT 12 SUPP/BOX SUPP PR ONE (09:33)
[2019-11-23] MEDS: NYSTATIN POWDER 15GM BTL EXT SCH (09:34)
[2019-11-23] MEDS: LEVOTHYROXINE SODIUM 12.5 MCG in SYRINGE 0 ML IV SCH (09:35)
--- NOTE | 2019-11-23 09:35 | Hospitalist Progress Note ---
Date of Service November 23, 2019 Assessment & Plan (1) Sepsis: -Meet sepsis criteria with tachycardia, leukocytosis with elevated lactate, Possible related to aspiration pneumonia and bacteremia, CXR showed bibasilar opacities, likely representing compressive atelectasis although a superimposed infectious/inflammatory process cannot be excluded -Blood cx positive for gram positive cocci in clusters but this results as Coag neg staph not lugdunensis -repeat blood culture sent on 11/20/2019 with no growth to date -continue IV ceftriaxone and Flagyl and Doxycycline for now 11/21/2019 updates: Patient had hypoglycemic episode while on IV fluids with dextrose this AM. Then patient lost EJ line of the neck for IV access. ICU physician was requested to assess in case of need for central line. So far, have been able to avoid a central line at this time as patient now have left foot peripheral IV access, 2 peripheral IV access in right upper extremity, alejo placed, Coresafe nasal feeding tube with patient's daughter allowing for trial of NG tube feeding however the Coresafe later failed to flush and had to be removed. Daughter affirmed with medical doctor of full code status and while tube feedings are allowed on temporary basis that patient and family would not want PEG tube as a penitentiary way to feed 11/22/2019: NG tube could not be replaced overnight. serum glucose 70 in the AM. IV fluids with dextrose started. The IV access of the right arm and left foot are in place. Reviewed with nurse that patient's wound care notes of "Pt's buttocks and sacrum have healed ulcerations and are very macerated." Patient more awake and alert today. She is able to answer questions and denies acute pain. patient is awaiting to be seen by speech and swallow services. cardiology consult following the patient requested palliative care to follow the patient and engage further with her family members on goals of care. discussed with patient's daughter Farzaneh with Dr. Cast from palliative care with main decisions so far to continue to monitor patient off NG tube because of concern for injury to place NG tube in a patient without swallowing reflex, patient's daughter affirms no PEG tube placement and would like more time for further speech and swallow assessments, allows for continued IV fluids with dextrose at this time, understands that at the time patient not ready for oral medications including coumadin 11/23/2019: Patient not in acute distress. she remains on supplementary oxygen. peripheral IVs remain working. Discussed with nurse and case mgr that patient's daughter wishes further speech and swallow assessments based on 11/22/2019 discussions with palliative care and daughter. Patient awake. she reports she is feeling fine. Nurse reports no bowel movements yet in 2 days. Nurse is instructed to give suppository to patient and maintain oral hygiene care (2) Aspiration pneumonia: -admission CXR showed bibasilar opacities, likely representing compressive atelectasis although a superimposed infectious/inflammatory process cannot be excluded -she initially failed the bedside swallow test -On IV ceftriaxone and Flagyl and Doxycycline -11/22/2019: As per speech and swallow therapist message to hospitalist that the that patient "has no functional swallow reflex. She is not appropriate for any p.o. intake. Even had aspiration event with ice chip." -further speech and swallow assessments as requested by patient's daughter -repeat CXR ordered on 11/23/2019 (3) Hypoxia: -Secondary to poss aspiration pneumonia -on antibiotics and supplementary oxygen (4) Acute metabolic encephalopathy: -Mostly related to sepsis and hypoxia with underlying dementia admission CT head showed no finding (5) Chronic atrial fibrillation: -Rate controlled, no Beta patricia on med rec -monitor on telemetry -avoid pharmacological anticoagulation for now in case of need for central line, avoid coumadin because of NPO (6) Supratherapeutic INR: -INR on admission 6.5, No sign of bleeding, Received Vit K 2.5 IV in the ER. -INR is subtherapeutic -avoid pharmacological anticoagulation for now in case of need for central line, avoid coumadin because of NPO (7) Elevated troponin: -Mostly related to sepsis and hypoxia -Troponin on admission 0.157, then peaked to 0.410 the trended down to 0.393 -Case discussed with cardio that recommended conservative management. The 11/20/2019 shellfish processing laborer assessment that "Minimal troponin elevation and slight EKG changes in the setting of hypoxia due to aspiration pneumonia. I do not believe this represents an acute ischemic event" A 2D echocardiogram performed 11/20/2019 did not find any wall motion abnormalities (8) DMII (diabetes mellitus, type 2): -Most recent Hba1c 5.1 -hypoglycemia in AM of 11/21/2019 when on IV fluid with dextrose -sliding scale insulin as needed Hypothyroidism -currently on levothyroxine IV -TSH is 3.3 which is currently a normal TSH level (9) CKD (chronic kidney disease), stage IV: -admission Creatinine 2.07 which is at baseline -creatinine is 1.77 on 11/21/2019 and 1.55 on 11/22/2019 (10) H/O: stroke with residual effects: -history of stroke 2 years ago -this admission CT head showed no acute finding -statin and coumadin held for now while NPO (11) Dementia: -patient has dementia since stroke 2 years ago and generally minimal speech baseline and minimally mobile at baseline (12) Depression: -holding home dose citalopram for now (13) DVT prophylaxis: -SCDs to right leg only to avoid disrupting the left foot IV access -avoid pharmcological anticoagulation for now in case of need for central line -waffle boots to both legs CODE STATUS full Code Daughter Farzaneh [phone] who helps patient makes the medical decisions Admission and Anticipated Discharge Date Admission Date: November 19, 2019 Subjective Patient not in acute distress. she remains on supplementary oxygen. peripheral IVs remain working. Discussed with nurse and case mgr that patient's daughter wishes further speech and swallow assessments based on 11/22/2019 discussions with palliative care and daughter. Patient awake. she reports she is feeling fine. Nurse reports no bowel movements yet in 2 days. Nurse is instructed to give suppository to patient and maintain oral hygiene care. Review of Systems Review of Systems: All systems reviewed & are unremarkable except as noted in Subjective Physical Exam Constitutional: + ill appearing Eyes: PERRL, conjunctivae normal, anicteric sclerae EOM intact bilaterally ENMT: external ear and nose normal, oropharynx normal Neck: trachea midline, no thyromegaly normal visual inspection Respiratory: normal respiratory effort Cardiovascular: Rate/Rhythm: regular rate and + irregularly irregular Gastrointestinal (Abdomen): normal bowel sounds, soft, nontender, no hepatosplenomegaly Musculoskeletal: Head/Neck/Chest: normocephalic Neurologic: PERRL, EOMI, accommodation nl, no face palsy, no dysarthria Psychiatric: Orientation: alert Genitourinary: + bladder abnormality (alejo in place) Results & Data Results & [facility] ([facility]) Vital Signs (Past 12 Hours) Vital Signs Temp Pulse Resp BP BP Pulse Ox 08/21/20 07:41 36.5 C 67 16 111/70 95 11/23/19 04:00 36.6 C 69 19 150/87 H 94 11/22/19 23:47 36.5 C 68 20 133/79 97
[2019-11-23 09:53] LABS: Basophils # (auto) 0.04 K/uL (0-0.2); Basophils % (auto) 0.7 %; Eosinophils # (auto) 0.06 K/uL (0-0.5); Eosinophils % (auto) 1.1 %; Hematocrit (blood only) 32.4 % (37-47); Hemoglobin 10.8 g/dL (12.0-16.0); Lymphocytes # (auto) 1.06 K/uL (1.2-3.4); Lymphocytes % (auto) 18.8 %; Mean Corpuscular Hgb Conc 33.3 g/dL (32-36); Mean Corpuscular Volume 93.1 fL (80-100); Mean Platelet Volume 10.1 fL (7.4-10.4); Monocytes # (auto) 0.54 K/uL (0.11-0.59); Monocytes % (auto) 9.6 %; Neutrophils # (auto) 3.93 K/uL (1.4-6.5); Neutrophils % (auto) 69.8 %; Platelet Count 201 K/uL (130-400); RDW Standard Deviation 47.3 fL (36.4-46.3); Red Blood Count 3.48 M/uL (4.2-5.4); White Blood Count 5.63 K/uL (4.8-10.8)
[2019-11-23 10:19] LABS: Albumin Level 1.7 gm/dl (3.4-5.0); BUN Creatinine Ratio 10.1 (10-20); Creatinine Clr Calc Pharmacy 31.9 ml/min; Est GFR (African American) 39.4; Magnesium 2.2 mg/dl (1.8-2.4); Potassium 3.6 mmol/L (3.5-5.1)
[2019-11-23 10:40] LABS: Albumin Globulin Ratio 0.4 (0.9-2); Bilirubin,Total 0.6 mg/dl (0.2-1); Globulin 4.2 gm/dl (2.5-4.0); Total Protein 5.9 gm/dl (6.4-8.2)
[2019-11-23] MEDS ORDERED: POTASSIUM PHOS 3 MMOL/1 ML INFUSION IV STA (10:42)
[2019-11-23] MEDS ORDERED: POTASSIUM PHOSPHATE 24 MMOL in SODIUM CHLORIDE 0.9% 500 ML IV ONE (11:00)
[2019-11-23] MEDS ORDERED: MULTI-VITAMIN INFUSION 10 ML, THIAMINE HCL 100 MG, FOLIC ACID 1 MG in SODIUM CHLORIDE 0... IV ONE (11:00)
[2019-11-23] MEDS ORDERED: MULTI VITAMIN INFUSION IV ONE (11:00)
[2019-11-23] MEDS ORDERED: FOLIC ACID IV ONE (11:00)
[2019-11-23] MEDS ORDERED: THIAMINE HCL IV ONE (11:00)
[2019-11-23] MEDS ORDERED: [UNRECOGNIZED DRUG - OTHER] IV ONE (11:00)
--- NOTE | 2019-11-23 11:31 | XRay Report ---
XR chest 1V portable HISTORY: Shortness of breath. Follow-up. COMPARISON: Chest 11/19/2019. FINDINGS: No pneumothorax. Small right and moderate left pleural effusions with mild interstitial pul monary edema. This is similar to the prior study. Bibasilar densities also persist and are nonspecifi c but could represent atelectasis from the pleural effusions. The heart remains mildly enlarged. IMPRESSION: No change in the mild interstitial pulmonary edema, bilateral pleural effusions, and bibasilar densit ies. ACT 112: Negative or not required by law. Electronically signed by: Niko Lambert M.D. 11/23/2019 11:30 AM
[2019-11-23] MEDS: PANTOprazole 40 MG in SYRINGE 0 ML IV SCH (12:26)
[2019-11-23] MEDS: cefTRIAXone SODIUM 1,000 MG in DEXTROSE 5% 50 ML IV SCH (12:26)
[2019-11-23 15:44] LABS: Albumin Level 1.5 gm/dl (3.4-5.0); BUN Creatinine Ratio 10.5 (10-20); Calcium 8.3 mg/dl (8.5-10.1); Creatinine Clr Calc Pharmacy 35.4 ml/min; Est GFR (African American) 44.6; Est GFR (Non-African American) 38.4; Potassium 3.4 mmol/L (3.5-5.1)
[2019-11-23 15:56] LABS: Albumin Globulin Ratio 0.4 (0.9-2); Bilirubin,Total 0.5 mg/dl (0.2-1); Globulin 3.9 gm/dl (2.5-4.0); Phosphorus 1.5 mg/dl (2.5-4.9); Total Protein 5.4 gm/dl (6.4-8.2)
[2019-11-23] MEDS ORDERED: FUROSEMIDE 20 MG in SYRINGE 0 ML IV ONE (19:15)
[2019-11-24 00:34] LABS: Albumin Level 1.6 gm/dl (3.4-5.0); BUN Creatinine Ratio 9.8 (10-20); Calcium 8.2 mg/dl (8.5-10.1); Creatinine Clr Calc Pharmacy 36.5 ml/min; Est GFR (African American) 46.3; Est GFR (Non-African American) 39.9; Magnesium 1.8 mg/dl (1.8-2.4); Potassium 3.6 mmol/L (3.5-5.1)
[2019-11-24 01:16] LABS: Albumin Globulin Ratio 0.4 (0.9-2); Bilirubin,Total 0.5 mg/dl (0.2-1); Globulin 4.1 gm/dl (2.5-4.0); Phosphorus 2.6 mg/dl (2.5-4.9); Total Protein 5.7 gm/dl (6.4-8.2)
[2019-11-24] MEDS: DOXYCYCLINE HYCLATE 100 MG in DEXTROSE 5% 100 ML IV SCH ×2 (02:57→14:51)
[2019-11-24] MEDS: metroNIDAZOLE 500 MG/100 ML BAG IV SCH ×3 (04:00→19:33)
[2019-11-24] MEDS: INSULIN ASPART 100 UNITS/ML 3 ML PEN SC SCH ×4 (07:47→18:33)
[2019-11-24] MEDS: NYSTATIN POWDER 15GM BTL EXT SCH (07:49)
[2019-11-24] MEDS: LEVOTHYROXINE SODIUM 12.5 MCG in SYRINGE 0 ML IV SCH (08:25)
[2019-11-24 11:59] LABS: Albumin Level 1.7 gm/dl (3.4-5.0); BUN Creatinine Ratio 9.7 (10-20); Calcium 8.3 mg/dl (8.5-10.1); Creatinine Clr Calc Pharmacy 35.2 ml/min; Est GFR (Non-African American) 37.1; Magnesium 1.8 mg/dl (1.8-2.4); Potassium 4.1 mmol/L (3.5-5.1)
[2019-11-24] MEDS: MAGNESIUM SULFATE / D5W 1 GM/100 ML BAG IV SCH ×2 (11:59→13:21)
[2019-11-24 12:03] LABS: Albumin Globulin Ratio 0.4 (0.9-2); Bilirubin,Total 0.5 mg/dl (0.2-1); Globulin 4.3 gm/dl (2.5-4.0); Phosphorus 2.1 mg/dl (2.5-4.9)
[2019-11-24] MEDS: cefTRIAXone SODIUM 1,000 MG in DEXTROSE 5% 50 ML IV SCH (12:03)
[2019-11-24] MEDS: PANTOprazole 40 MG in SYRINGE 0 ML IV SCH (12:05)
--- NOTE | 2019-11-24 13:07 | XRay Report ---
XR chest 1V portable HISTORY: follow up lung infiltrates COMPARISON: Chest 11/23/2019. FINDINGS: The heart remains mildly enlarged. No pneumothorax. No change in the mild interstitial pulm onary edema, bilateral pleural effusions, and bibasilar densities. IMPRESSION: No change in the mild interstitial pulmonary edema, bilateral pleural effusions, and bibasilar densit ies. ACT 112: Negative or not required by law. Electronically signed by: Niko Lambert M.D. 11/24/2019 1:06 PM
--- NOTE | 2019-11-24 14:43 | Hospitalist Progress Note ---
Date of Service November 24, 2019 Assessment & Plan (1) Sepsis: -Meet sepsis criteria with tachycardia, leukocytosis with elevated lactate, Possible related to aspiration pneumonia and bacteremia, CXR showed bibasilar opacities, likely representing compressive atelectasis although a superimposed infectious/inflammatory process cannot be excluded -Blood cx positive for gram positive cocci in clusters but this results as Coag neg staph not lugdunensis -repeat blood culture sent on 11/20/2019 with no growth to date -continue IV ceftriaxone and Flagyl and Doxycycline for now 11/21/2019 updates: Patient had hypoglycemic episode while on IV fluids with dextrose this AM. Then patient lost EJ line of the neck for IV access. ICU physician was requested to assess in case of need for central line. So far, have been able to avoid a central line at this time as patient now have left foot peripheral IV access, 2 peripheral IV access in right upper extremity, alejo placed, Coresafe nasal feeding tube with patient's daughter allowing for trial of NG tube feeding however the Coresafe later failed to flush and had to be removed. Daughter affirmed with medical doctor of full code status and while tube feedings are allowed on temporary basis that patient and family would not want PEG tube as a prison way to feed 11/22/2019: NG tube could not be replaced overnight. serum glucose 70 in the AM. IV fluids with dextrose started. The IV access of the right arm and left foot are in place. Reviewed with nurse that patient's wound care notes of "Pt's buttocks and sacrum have healed ulcerations and are very macerated." Patient more awake and alert today. She is able to answer questions and denies acute pain. patient is awaiting to be seen by speech and swallow services. cardiology consult following the patient requested palliative care to follow the patient and engage further with her family members on goals of care. discussed with patient's daughter Farzaneh with Dr. Cast from palliative care with main decisions so far to continue to monitor patient off NG tube because of concern for injury to place NG tube in a patient without swallowing reflex, patient's daughter affirms no PEG tube placement and would like more time for further speech and swallow assessments, allows for continued IV fluids with dextrose at this time, understands that at the time patient not ready for oral medications including coumadin 11/23/2019: Patient not in acute distress. she remains on supplementary oxygen. peripheral IVs remain working. Discussed with nurse and patient case coordinator that patient's daughter wishes further speech and swallow assessments based on 11/22/2019 discussions with palliative care and daughter. 11/24/2019: In reviewing the patient's lung X rays of pleural effusions and increasingly elevated BNP (from around 9800 on 11/19/2019 to around 15,000 by 11/24/2019), have called patient's daughter Farzaneh on the telephone that furthering IV hydration may put patient at risk or worsen respiratory function and that we should discuss goals of care further when Farzaneh arrives to the [facility] in person. (2) Aspiration pneumonia: -admission CXR showed bibasilar opacities, likely representing compressive atelectasis although a superimposed infectious/inflammatory process cannot be excluded -she initially failed the bedside swallow test -On IV ceftriaxone and Flagyl and Doxycycline -11/22/2019: As per speech and swallow therapist message to hospitalist that the that patient "has no functional swallow reflex. She is not appropriate for any p.o. intake. Even had aspiration event with ice chip." -further speech and swallow assessments as requested by patient's daughter -management as above (3) Hypoxia: -Secondary to poss aspiration pneumonia -on antibiotics and supplementary oxygen (4) Acute metabolic encephalopathy: -Mostly related to sepsis and hypoxia with underlying dementia admission CT head showed no finding (5) Chronic atrial fibrillation: -Rate controlled, no Beta patricia on med rec -monitor on telemetry -avoid pharmacological anticoagulation for now in case of need for central line, avoid coumadin because of NPO (6) Supratherapeutic INR: -INR on admission 6.5, No sign of bleeding, Received Vit K 2.5 IV in the ER. -INR is subtherapeutic -avoid pharmacological anticoagulation for now in case of need for central line, avoid coumadin because of NPO (7) Elevated troponin: -Mostly related to sepsis and hypoxia -Troponin on admission 0.157, then peaked to 0.410 the trended down to 0.393 -Case discussed with cardio that recommended conservative management. The 11/20/2019 [employer] assessment that "Minimal troponin elevation and slight EKG changes in the setting of hypoxia due to aspiration pneumonia. I do not believe this represents an acute ischemic event" A 2D echocardiogram performed 11/20/2019 did not find any wall motion abnormalities (8) DMII (diabetes mellitus, type 2): -Most recent Hba1c 5.1 -hypoglycemia in AM of 11/21/2019 when on IV fluid with dextrose -sliding scale insulin as needed Hypothyroidism -currently on levothyroxine IV -TSH is 3.3 which is currently a normal TSH level (9) CKD (chronic kidney disease), stage IV: -admission Creatinine 2.07 which is at baseline -creatinine downtrended with IV fluids medications on this admission to around 1.3 on 11/22/2019, however fluid overload needs to be taken into account when looking at the renal functon (10) H/O: stroke with residual effects: -history of stroke 2 years ago -this admission CT head showed no acute finding -statin and coumadin held for now while NPO (11) Dementia: -patient has dementia since stroke 2 years ago and generally minimal speech baseline and minimally mobile at baseline (12) Depression: -holding home dose citalopram for now (13) DVT prophylaxis: -SCDs to right leg only to avoid disrupting the left foot IV access -avoid pharmcological anticoagulation for now in case of need for central line -waffle boots to both legs CODE STATUS full Code Daughter Farzaneh [phone] who helps patient makes the medical decisions Admission and Anticipated Discharge Date Admission Date: November 19, 2019 Subjective In reviewing the patient's lung X rays of pleural effusions and increasingly elevated BNP (from around 9800 on 11/19/2019 to around 15,000 by 11/24/2019), have called patient's daughter Farzaneh on the telephone that furthering IV hydration may put patient at risk or worsen respiratory function and that we should discuss goals of care further when Farzaneh arrives to the hospital in person. patient on exam is awake and able to respond in a few words but not making clinical improvements in terms of her activities Review of Systems Review of Systems: All systems reviewed & are unremarkable except as noted in Subjective Physical Exam Constitutional: + ill appearing Eyes: PERRL, conjunctivae normal, anicteric sclerae EOM intact bilaterally ENMT: external ear and nose normal, oropharynx normal Neck: trachea midline, no thyromegaly normal visual inspection Respiratory: normal respiratory effort Cardiovascular: Rate/Rhythm: regular rate and + irregularly irregular Gastrointestinal (Abdomen): normal bowel sounds, soft, nontender, no hepatosplenomegaly Musculoskeletal: Head/Neck/Chest: normocephalic Neurologic: PERRL, EOMI, accommodation nl, no face palsy, no dysarthria Psychiatric: Orientation: alert Genitourinary: + bladder abnormality (alejo in place) Results & Data Results & Data ([facility]) Vital Signs (Past 12 Hours) Vital Signs Temp Pulse Pulse Resp BP Pulse Ox 11/24/19 11:40 36.9 C 74 20 113/47 L 100 11/24/19 07:59 36.5 C 73 22 107/60 100 11/24/19 07:26 77 11/24/19 04:00 36.5 C 69 22 119/53 L 100
[2019-11-24] MEDS: D5W AND 1/2NSS 1,000 ML IV SCH (17:44)
[2019-11-25] MEDS: INSULIN ASPART 100 UNITS/ML 3 ML PEN SC SCH ×4 (00:09→17:39)
[2019-11-25] MEDS: DOXYCYCLINE HYCLATE 100 MG in DEXTROSE 5% 100 ML IV SCH ×3 (01:13→14:00)
[2019-11-25] MEDS: metroNIDAZOLE 500 MG/100 ML BAG IV SCH ×3 (02:16→19:52)
[2019-11-25] MEDS: LEVOTHYROXINE SODIUM 12.5 MCG in SYRINGE 0 ML IV SCH (08:25)
[2019-11-25] MEDS: NYSTATIN POWDER 15GM BTL EXT SCH (08:28)
[2019-11-25 08:36] LABS: Albumin Level 1.7 gm/dl (3.4-5.0); BUN Creatinine Ratio 8.6 (10-20); Calcium 8.4 mg/dl (8.5-10.1); Creatinine Clr Calc Pharmacy 34.5 ml/min; Est GFR (African American) 41.1; Est GFR (Non-African American) 35.5; Magnesium 2.1 mg/dl (1.8-2.4); Potassium 3.6 mmol/L (3.5-5.1)
[2019-11-25 08:39] LABS: Albumin Globulin Ratio 0.4 (0.9-2); Bilirubin,Total 0.5 mg/dl (0.2-1); Globulin 4.2 gm/dl (2.5-4.0); Phosphorus 1.6 mg/dl (2.5-4.9); Total Protein 5.9 gm/dl (6.4-8.2)
[2019-11-25] MEDS ORDERED: POTASSIUM PHOS 3 MMOL/1 ML INFUSION IV STA (11:54)
--- NOTE | 2019-11-25 12:05 | Hospitalist Progress Note ---
Date of Service November 25, 2019 Assessment & Plan (1) Sepsis: -Meet sepsis criteria with tachycardia, leukocytosis with elevated lactate, Possible related to aspiration pneumonia and bacteremia, CXR showed bibasilar opacities, likely representing compressive atelectasis although a superimposed infectious/inflammatory process cannot be excluded -Blood cx positive for gram positive cocci in clusters but this results as Coag neg staph not lugdunensis -repeat blood culture sent on 11/20/2019 with no growth to date -continue IV ceftriaxone and Flagyl and Doxycycline for now 11/21/2019 updates: Patient had hypoglycemic episode while on IV fluids with dextrose this AM. Then patient lost EJ line of the neck for IV access. ICU physician was requested to assess in case of need for central line. So far, have been able to avoid a central line at this time as patient now have left foot peripheral IV access, 2 peripheral IV access in right upper extremity, alejo placed, Coresafe nasal feeding tube with patient's daughter allowing for trial of NG tube feeding however the Coresafe later failed to flush and had to be removed. Daughter affirmed with medical doctor of full code status and while tube feedings are allowed on temporary basis that patient and family would not want PEG tube as a usp way to feed 11/22/2019: NG tube could not be replaced overnight. serum glucose 70 in the AM. IV fluids with dextrose started. The IV access of the right arm and left foot are in place. Reviewed with nurse that patient's wound care notes of "Pt's buttocks and sacrum have healed ulcerations and are very macerated." Patient more awake and alert today. She is able to answer questions and denies acute pain. patient is awaiting to be seen by speech and swallow services. cardiology consult following the patient requested palliative care to follow the patient and engage further with her family members on goals of care. discussed with patient's daughter Farzaneh with Dr. Cast from palliative care with main decisions so far to continue to monitor patient off NG tube because of concern for injury to place NG tube in a patient without swallowing reflex, patient's daughter affirms no PEG tube placement and would like more time for further speech and swallow assessments, allows for continued IV fluids with dextrose at this time, understands that at the time patient not ready for oral medications including coumadin 11/23/2019: Patient not in acute distress. she remains on supplementary oxygen. peripheral IVs remain working. Discussed with nurse and showcase maker that patient's daughter wishes further speech and swallow assessments based on 11/22/2019 discussions with palliative ca re and daughter. 11/24/2019: In reviewing the patient's lung X rays of pleural effusions and increasingly elevated BNP (from around 9800 on 11/19/2019 to around 15,000 by 11/24/2019), have called patient's daughter Farzaneh on the telephone that furthering IV hydration may put patient at risk or worsen respiratory function. Patient's daughter Wanda arrives to hospital and we discussed concerns of fluid overload leading to respiratory distress or failure of the patient if IV fluids with dextrose to be resumed and at the same time noting that patient is high aspiration if she eats by mouth. Code Status was also discussed. Diogenes requests that she needs more time to discuss with other family members and would like at this time to maintain full code status and maintain IV fluids with dextrose in the interim for hydration and nutrition. Nurse informed and IV fluids to be resumed as 50 cc perhour of D5 1/2 normal saline 11/25/2019: Patient has at this time 1 available peripheral IV access of the left foot, serum phosphorous again low as 1.6 on 11/24/201 and additional IV replacement ordered and to be given when additional IV access can be evaluated. Patient continues to be on supplemental oxygen. She denies acute symptoms and shakes her head as to no acute symptoms. (2) Aspiration pneumonia: -admission CXR showed bibasilar opacities, likely representing compressive atelectasis although a superimposed infectious/inflammatory process cannot be excluded -she initially failed the bedside swallow test -On IV ceftriaxone and Flagyl and Doxycycline -11/22/2019: As per speech and swallow therapist message to hospitalist that the that patient "has no functional swallow reflex. She is not appropriate for any p.o. intake. Even had aspiration event with ice chip." -further speech and swallow assessments as requested by patient's daughter -management as above (3) Hypoxia: -Secondary to poss aspiration pneumonia -on antibiotics and supplementary oxygen (4) Acute metabolic encephalopathy: -Mostly related to sepsis and hypoxia with underlying dementia admission CT head showed no finding (5) Chronic atrial fibrillation: -Rate controlled, no Beta patricia on med rec -monitor on telemetry -avoid pharmacological anticoagulation for now in case of need for central line, avoid coumadin because of NPO (6) Supratherapeutic INR: -INR on admission 6.5, No sign of bleeding, Received Vit K 2.5 IV in the ER. -INR is subtherapeutic -avoid pharmacological anticoagulation for now in case of need for central line, avoid coumadin because of NPO (7) Elevated troponin: -Mostly related to sepsis and hypoxia -Troponin on admission 0.157, then peaked to 0.410 then trended down to 0.393 -Case discussed with cardio that recommended conservative management. The 11/20/2019 integrity specialist assessment that "Minimal troponin elevation and slight EKG changes in the setting of hypoxia due to aspiration pneumonia. I do not believe this represents an acute ischemic event" A 2D echocardiogram performed 11/20/2019 did not find any wall motion abnormalities (8) DMII (diabetes mellitus, type 2): -Most recent Hba1c 5.1 -hypoglycemia in AM of 11/21/2019 when on IV fluid with dextrose -sliding scale insulin as needed Hypothyroidism -currently on levothyroxine IV -TSH is 3.3 which is currently a normal TSH level (9) CKD (chronic kidney disease), stage IV: -admission Creatinine 2.07 which is at baseline -creatinine downtrended with IV fluids medications on this admission to around 1.3 on 11/22/2019, however fluid overload needs to be taken into account when looking at the renal functon Hypophosphatemia -patient was given IV phosphorous and thiamine on this admission -serum phosphorous again low as 1.6 on 11/24/201 and additional IV replacement ordered (10) H/O: stroke with residual effects: -history of stroke 2 years ago -this admission CT head showed no acute finding -statin and coumadin held for now while NPO (11) Dementia: -patient has dementia since stroke 2 years ago and generally minimal speech baseline and minimally mobile at baseline (12) Depression: -holding home dose citalopram for now (13) DVT prophylaxis: -SCDs to right leg only to avoid disrupting the left foot IV access -avoid pharmcological anticoagulation for now in case of need for central line -waffle boots to both legs CODE STATUS full Code Daughter Farzaneh [phone] who helps patient makes the medical decisions Admission and Anticipated Discharge Date Admission Date: November 19, 2019 Subjective Patient has at this time 1 available peripheral IV access of the left foot, serum phosphorous again low as 1.6 on 11/24/201 and additional IV replacement ordered and to be given when additional IV access can be evaluated. Patient continues to be on supplemental oxygen. She denies acute symptoms and shakes her head as to no acute symptoms. Review of Systems Review of Systems: All systems reviewed & are unremarkable except as noted in Subjective Physical Exam Constitutional: + ill appearing Eyes: PERRL, conjunctivae normal, anicteric sclerae EOM intact bilaterally ENMT: external ear and nose normal, oropharynx normal Neck: trachea midline, no thyromegaly normal visual inspection Respiratory: normal respiratory effort Cardiovascular: Rate/Rhythm: regular rate and + irregularly irregular Gastrointestinal (Abdomen): normal bowel sounds, soft, nontender, no hepatosplenomegaly Musculoskeletal: Head/Neck/Chest: normocephalic Neurologic: PERRL, EOMI, accommodation nl, no face palsy, no dysarthria Psychiatric: Orientation: alert Genitourinary: + bladder abnormality (alejo in place) Results & Data Results & Data ([facility]) Vital Signs (Past 12 Hours) Vital Signs Temp Pulse Pulse Resp BP Pulse Ox 11/25/19 08:18 36.4 C L 74 18 115/63 100 11/25/19 07:02 76 11/25/19 04:44 36.6 C 73 16 120/51 L 96
[2019-11-25] MEDS: cefTRIAXone SODIUM 1,000 MG in DEXTROSE 5% 50 ML IV SCH (12:23)
[2019-11-25] MEDS: PANTOprazole 40 MG in SYRINGE 0 ML IV SCH (12:24)
[2019-11-25] MEDS ORDERED: POTASSIUM PHOSPHATE 30 MMOL in SODIUM CHLORIDE 0.9% 500 ML IV ONE (12:30)
[2019-11-25] MEDS: D5W AND 1/2NSS 1,000 ML IV SCH (19:51)
[2019-11-26] MEDS: INSULIN ASPART 100 UNITS/ML 3 ML PEN SC SCH ×3 (00:19→14:32)
[2019-11-26] MEDS: DOXYCYCLINE HYCLATE 100 MG in DEXTROSE 5% 100 ML IV SCH (02:21)
[2019-11-26] MEDS: metroNIDAZOLE 500 MG/100 ML BAG IV SCH ×2 (02:22→12:03)
[2019-11-26 08:04] LABS: Basophils # (auto) 0.02 K/uL (0-0.2); Basophils % (auto) 0.3 %; Eosinophils # (auto) 0.04 K/uL (0-0.5); Eosinophils % (auto) 0.6 %; Hematocrit (blood only) 35.5 % (37-47); Hemoglobin 11.6 g/dL (12.0-16.0); Immature Granulocytes # (auto) 0.01 K/uL (0.00-0.02); Immature Granulocytes % (auto) 0.2 %; Lymphocytes # (auto) 0.93 K/uL (1.2-3.4); Lymphocytes % (auto) 14.4 %; Mean Corpuscular Hgb Conc 32.7 g/dL (32-36); Mean Corpuscular Volume 94.9 fL (80-100); Mean Platelet Volume 9.9 fL (7.4-10.4); Monocytes # (auto) 0.67 K/uL (0.11-0.59); Monocytes % (auto) 10.3 %; Neutrophils # (auto) 4.81 K/uL (1.4-6.5); Neutrophils % (auto) 74.2 %; Platelet Count 221 K/uL (130-400); RDW Coefficient of Variation 14.4 % (11.5-14.5); RDW Standard Deviation 49.2 fL (36.4-46.3); Red Blood Count 3.74 M/uL (4.2-5.4); White Blood Count 6.48 K/uL (4.8-10.8)
--- NOTE | 2019-11-26 08:06 | Hospitalist Progress Note ---
Date of Service November 26, 2019 Assessment & Plan (1) Sepsis: -Meet sepsis criteria with tachycardia, leukocytosis with elevated lactate, Possible related to aspiration pneumonia and bacteremia, CXR showed bibasilar opacities, likely representing compressive atelectasis although a superimposed infectious/inflammatory process cannot be excluded -Blood cx positive for gram positive cocci in clusters but this results as Coag neg staph not lugdunensis -repeat blood culture sent on 11/20/2019 with no growth to date -continue IV ceftriaxone and Flagyl and Doxycycline for now 11/21/2019 updates: Patient had hypoglycemic episode while on IV fluids with dextrose this AM. Then patient lost EJ line of the neck for IV access. ICU physician was requested to assess in case of need for central line. So far, have been able to avoid a central line at this time as patient now have left foot peripheral IV access, 2 peripheral IV access in right upper extremity, alejo placed, Coresafe nasal feeding tube with patient's daughter allowing for trial of NG tube feeding however the Coresafe later failed to flush and had to be removed. Daughter affirmed with medical doctor of full code status and while tube feedings are allowed on temporary basis that patient and family would not want PEG tube as a long-term way to feed 11/22/2019: NG tube could not be replaced overnight. serum glucose 70 in the AM. IV fluids with dextrose started. The IV access of the right arm and left foot are in place. Reviewed with nurse that patient's wound care notes of "Pt's buttocks and sacrum have healed ulcerations and are very macerated." Patient more awake and alert today. She is able to answer questions and denies acute pain. patient is awaiting to be seen by speech and swallow services. cardiology consult following the patient requested palliative care to follow the patient and engage further with her family members on goals of care. discussed with patient's daughter Farzaneh with Dr. Cast from palliative care with main decisions so far to continue to monitor patient off NG tube because of concern for injury to place NG tube in a patient without swallowing reflex, patient's daughter affirms no PEG tube placement and would like more time for further speech and swallow assessments, allows for continued IV fluids with dextrose at this time, understands that at the time patient not ready for oral medications including coumadin 11/23/2019: Patient not in acute distress. she remains on supplementary oxygen. peripheral IVs remain working. Discussed with nurse and pillowcase maker that patient's daughter wishes further speech and swallow assessments based on 11/22/2019 discussions with palliative ca re and daughter. 11/24/2019: In reviewing the patient's lung X rays of pleural effusions and increasingly elevated BNP (from around 9800 on 11/19/2019 to around 15,000 by 11/24/2019), have called patient's daughter Farzaneh on the telephone that furthering IV hydration may put patient at risk or worsen respiratory function. Patient's daughter Wanda arrives to hospital and we discussed concerns of fluid overload leading to respiratory distress or failure of the patient if IV fluids with dextrose to be resumed and at the same time noting that patient is high aspiration if she eats by mouth. Code Status was also discussed. Diogenes requests that she needs more time to discuss with other family member (sister who has Down Syndrome) and would like at this time to maintain full code status and maintain IV fluids with dextrose in the interim for hydration and nutrition. Nurse informed and IV fluids to be resumed as 50 cc perhour of D5 1/2 normal saline 11/25/2019: Patient has at this time 1 available peripheral IV access of the left foot, serum phosphorous again low as 1.6 on 11/24/201 and additional IV replacement ordered and to be given when additional IV access can be evaluated. Patient continues to be on supplemental oxygen. She denies acute symptoms and shakes her head as to no acute symptoms. Farzaneh arrived in evening with sister with Down Syndrome. discussed with Farzaneh again or poor overall prognosis of patient, but Farzaneh reports that her sister did not want to hear that their mother not doing well. Patient remains full code and to continue the IV fluids and medications 11/26/2019: seen and examine patient this AM, she has blood drawn and labs are pending. patient awake but very run down in appearance. when asked how she was feeling, patient said "I don't know" when asked if she was in pain, patient said no. However, patient has multiple ecchymosis and some hand swelling from blood draws and previous attempts for IV line access and replacements. Will follow the labs. Speech and swallow services to see patient but it is doubtful that patient can pass the swallowing test especially in this deconditioned state. (2) Aspiration pneumonia: Dysphagia -admission CXR showed bibasilar opacities, likely representing compressive atelectasis although a superimposed infectious/inflammatory process cannot be excluded -she initially failed the bedside swallow test -On IV ceftriaxone and Flagyl and Doxycycline -11/22/2019: As per speech and swallow therapist message to hospitalist that the that patient "has no functional swallow reflex. She is not appropriate for any p.o. intake. Even had aspiration event with ice chip." -further speech and swallow assessments as requested by patient's daughter -management as above (3) Hypoxia: -Secondary to poss aspiration pneumonia -on antibiotics and supplementary oxygen (4) Acute metabolic encephalopathy: -Mostly related to sepsis and hypoxia with underlying dementia admission CT head showed no finding (5) Chronic atrial fibrillation: -Rate controlled, no Beta patricia on med rec -monitor on telemetry -avoid pharmacological anticoagulation for now in case of need for central line, avoid coumadin because of NPO (6) Supratherapeutic INR: -INR on admission 6.5, No sign of bleeding, Received Vit K 2.5 IV in the ER. -INR is subtherapeutic -avoid pharmacological anticoagulation for now in case of need for central line, avoid coumadin because of NPO (7) Elevated troponin: -Mostly related to sepsis and hypoxia -Troponin on admission 0.157, then peaked to 0.410 then trended down to 0.393 -Case discussed with cardio that recommended conservative management. The 11/20/2019 varnisher plasticoater assessment that "Minimal troponin elevation and slight EKG changes in the setting of hypoxia due to aspiration pneumonia. I do not believe this represents an acute ischemic event" A 2D echocardiogram performed 11/20/2019 did not find any wall motion abnormalities (8) DMII (diabetes mellitus, type 2): -Most recent Hba1c 5.1 -hypoglycemia in AM of 11/21/2019 when on IV fluid with dextrose -sliding scale insulin as needed Hypothyroidism -currently on levothyroxine IV -TSH is 3.3 which is currently a normal TSH level (9) CKD (chronic kidney disease), stage IV: -admission Creatinine 2.07 which is at baseline -creatinine downtrended with IV fluids medications on this admission to around 1.3 on 11/22/2019, however fluid overload needs to be taken into account when looking at the renal functon Hypophosphatemia -patient was given IV phosphorous and thiamine on this admission -serum phosphorous again low as 1.6 on 11/24/201 and additional IV replacement ordered (10) H/O: stroke with residual effects: -history of stroke 2 years ago -this admission CT head showed no acute finding -statin and coumadin held for now while NPO (11) Dementia: -patient has dementia since stroke 2 years ago and generally minimal speech baseline and minimally mobile at baseline (12) Depression: -holding home dose citalopram for now because of dysphagia (13) DVT prophylaxis: -SCDs to right leg only to avoid disrupting the left foot IV access -avoid pharmcological anticoagulation for now in case of need for central line -waffle boots to both legs CODE STATUS full Code Daughter Farzaneh [phone] who helps patient makes the medical decisions Admission and Anticipated Discharge Date Admission Date: November 19, 2019 Subjective seen and examine patient this AM, she has blood drawn and labs are pending. patient awake but very run down in appearance. when asked how she was feeling, patient said "I don't know" when asked if she was in pain, patient said no. However, patient has multiple ecchymosis and some hand swelling from blood draws and previous attempts for IV line access and replacements. Will follow the labs. Speech and swallow services to see patient but it is doubtful that patient can pass the swallowing test especially in this deconditioned state. Review of Systems Review of Systems: All systems reviewed & are unremarkable except as noted in Subjective Physical Exam Constitutional: + ill appearing Eyes: PERRL, conjunctivae normal, anicteric sclerae EOM intact bilaterally ENMT: external ear and nose normal, oropharynx normal Neck: trachea midline, no thyromegaly normal visual inspection Respiratory: normal respiratory effort Cardiovascular: Rate/Rhythm: regular rate and + irregularly irregular Gastrointestinal (Abdomen): normal bowel sounds, soft, nontender, no hepatosplenomegaly Musculoskeletal: Head/Neck/Chest: normocephalic Neurologic: PERRL, EOMI, accommodation nl, no face palsy, no dysarthria Psychiatric: Orientation: alert Genitourinary: + bladder abnormality (alejo in place) Results & Data Results & Data ([facility]) Vital Signs (Past 12 Hours) Vital Signs Temp Pulse Pulse Resp BP Pulse Ox 11/26/19 03:54 36.5 C 90 18 131/64 100 11/25/19 23:52 69 11/25/19 23:38 36.4 C L 85 18 142/79 H 96 11/25/19 20:17 36.7 C 72 18 88/45 L 100
[2019-11-26 08:20] LABS: Albumin Level 1.8 gm/dl (3.4-5.0); BUN Creatinine Ratio 8.3 (10-20); Calcium 8.6 mg/dl (8.5-10.1); Creatinine Clr Calc Pharmacy 32.9 ml/min; Est GFR (African American) 39.7; Est GFR (Non-African American) 34.3
[2019-11-26 08:24] LABS: Albumin Globulin Ratio 0.4 (0.9-2); Bilirubin,Total 0.6 mg/dl (0.2-1); Globulin 4.5 gm/dl (2.5-4.0); Phosphorus 2.8 mg/dl (2.5-4.9); Total Protein 6.3 gm/dl (6.4-8.2)
[2019-11-26] MEDS: LEVOTHYROXINE SODIUM 12.5 MCG in SYRINGE 0 ML IV SCH (08:35)
[2019-11-26] MEDS: NYSTATIN POWDER 15GM BTL EXT SCH (08:36)
[2019-11-26] MEDS: PANTOprazole 40 MG in SYRINGE 0 ML IV SCH (11:29)
[2019-11-26] MEDS ORDERED: ONDANSETRON 4 MG OD TAB SL PRN (14:57)
[2019-11-26] MEDS ORDERED: LORazepam 0.5 MG TAB PO PRN (14:57)
[2019-11-26] MEDS ORDERED: ONDANSETRON INJ 2 MG/ML 2 ML VIAL IV PRN (14:57)
[2019-11-26] MEDS ORDERED: LORazepam 0.5 MG/1 ML VIAL IV PRN (14:57)
[2019-11-26] MEDS ORDERED: ATROPINE SULFATE 1% OP SOLN 2 ML BTL SL PRN (14:57)
--- NOTE | 2019-11-26 15:25 | Palliative Care Progress Note ---
Date of Service November 26, 2019 Assessment & Plan (1) Palliative care encounter: Patient is an 79-year-old female with a past medical history significant for mild to moderate dementia, diastolic CHF, A. fib, diabetes, history of CVA, hypertension and falls who has a long history of occasionally choking on food. Patient has had prior admissions for UTIs-generally he returns to her prior baseline after treatment. Patient was admitted on 11/18 for altered mental status. Patient's UA was positive and she was put on IV antibiotics. Patient's mental status has improved over the last 2 days-patient is more alert, knows she is in the hospital, knows the year is 2019 however she thinks is March. Daughter reports that patient is usually fairly well oriented except for month and day of the week. Patient had not had required thickened liquids or any other diet modifications prior to this admission. Patient did have a swallow eval January of last year-that did not show aspiration, however with TRACK INSPECTING SUPERVISOR eval she is having overt aspiration even with ice chips. -Patient seen and examined initially-no family at bedside. Examined again with daughter at bedside. -Met with patient's daughter as well as attending physician, Dr. Barajas-reviewed her current status as well as updated findings on TR[employer] INSPECTING SUPERVISOR eval this a.m. chest x-ray is unchanged. -Daughter reports patient would not want a surgical feeding tube -discussed comfort care at home - addressed CODE STATUS -daughter agreeable to DNR -Patient is , she has 4 children, she lives with 2 of her daughters, Melly who is her primary caregiver, her other daughter that lives at home has Down syndrome. Patient reports that her two other children do not assist with her care. Patient is primarily bedbound, family is able to transfer her. Daughter reports patient is able to feed herself. -Goal of family is comfort care, collaborated with case management regarding hospice referral. Case management stated patient is active with [facility] home health-this would be an easy hospice transition. -PPS 20% (2) Aspiration pneumonia: N.p.o.-allow comfort feeds (3) Dysphasia: Patient would not want surgical feeding tube, family supports that decision (4) Diastolic CHF, acute on chronic: (5) Altered mental status: Patient had improved, now is more lethargic-expect her to perk up some when she returns home (6) UTI (urinary tract infection): Treated with IV antibiotics Admission and Anticipated Discharge Date Admission Date: November 19, 2019 Subjective Patient seen and examined earlier today, no acute distress. Patient was nonverbal, however was able to nod yes or no to simple questions. Spoke with patient's daughter by phone-met later this afternoon at bedside along with attending physician, Dr. Barajas to discuss goals of care. Daughter reports patient had a good day on Tuesday-had initiated conversation, however on Tuesday and today-patient has been more lethargic, not speaking, only nodding. Patient did nod yes that she wanted to return home. Patient with increased edema due to IV fluids, now has crackles in both lungs, is a very difficult IV access-discussed with daughter at length at bedside. Discussed at length patient's current condition and her prognosis with daughter at bedside. Goal is for comfort care, return home with hospice, stop IV fluids. Review of Systems Review of Systems: Patient nonverbal Physical Exam Physical Exam: PE: Patient appears comfortable at rest-on O2 at 3 L via oxime S HEENT: EOMI, hearing grossly within normal limits Respirations: Shallow, coarse breath sounds bilaterally CV: Regular rate, increased edema all extremities Abdomen: Soft, nontender Neuro: Awake, alert Results & Data ([facility]) Vital Signs (Past 12 Hours) Vital Signs Temp Pulse Pulse Resp BP Pulse Ox 11/26/19 11:29 98.1 F 90 16 114/86 100 11/26/19 09:51 76 11/26/19 08:24 97.7 F 75 18 97/66 L 100 11/26/19 03:54 97.7 F 90 18 131/64 100 PG Care Time/CCT Total # of Minutes Spent Total Time Spent with Patient: Total time spent 45 minutes with greater than 50% of the time at bedside reviewing patient's current status as well as prognosis and developing a plan of care. Patient CODE STATUS now DNR, will also transition to comfort care only. Coding Level of Care Code 93926 Subseq Hosp Care Lvl 3 Diagnoses Palliative care encounter Z51.5 Aspiration pneumonia J69.0 Dysphasia R47.02 Diastolic CHF, acute on chronic I50.33 Altered mental status R41.82 UTI (urinary tract infection) N39.0 Time Spent (min) 45
[2019-11-26] MEDS ORDERED: MoRPHine SULFATE 5 MG/0.25 ML UDP PO PRN (19:39)
--- NOTE | 2019-11-27 07:36 | Death Pronouncement Note ---
Date of Service November 27, 2019 Pronouncement Note Admission Date Admission Date: November 19, 2019 Date and Time of Date of : 11/27/19 Time of : 05:40 Contributing Factors (1) Palliative care encounter: (2) Aspiration pneumonia: (3) Dysphasia: (4) Diastolic CHF, acute on chronic: (5) Altered mental status: (6) UTI (urinary tract infection): Additional Data Confirmation of : no pulse, no respirations, no heart sounds and pupils fixed and dilated Family: attempt made Attending physician: Gurjit Barajas MD Was code activated?: No finished yarn examiner notified?: No
--- NOTE | 2019-11-27 08:48 | Discharge Summary ---
Date of Service November 27, 2019 Admission HPI Per Admitting Provider 79 yo F presented to the hospital via ambulance after daughter found her SOB. EMS reported oxygen saturation was 70% on room air. She is improved on oxygen supplementation with 10L via Oxymask at this time. Daughter lives with her and reports she heard mom coughing last night but then she went to bed and she reassessed her this morning. Daughter is giving the history as the patient is obtunded and not able to give history. She otherwise has not been ill in the last few days. Daughter denies she had any fever or smelly urine. The patient is bedbound with a lift machine at home. She travels in a wheelchair. Per daughter she hasn't eaten much in the last two weeks, but last night she ate her meal heartily. Daughter states she was here for aspiration issues last year and she looks similar to when she presented last time. The patient presented looking septic and with a possible aspiration appearance. A CXR suggested bilateral lower infiltrates vs atelectasis. She was given 500cc of fluid. Lactate was 4.9, INR was 6.5 and she is on warfarin which was held. No overt bleeding is present. She was started on ceftriaxone and Flagyl for sepsis 2/2 presumed aspiration pneumonia. Vitals signs started to normalize, however, she still needs supplemental oxygen at 5LPM. Principal Diagnosis Sepsis Aspiration pneumonia Hypoxia Secondary to aspiration pneumonia Dysphagia Acute metabolic encephalopathy History of stroke in the past, dementia Chronic atrial fibrillation Supratherapeutic INR on admission Elevated troponin on admission Hypophosphatemia Hypothyroidism diabetes mellitus type 2 COMFORT CARE MEASURES only status Discharge Exam Constitutional patient Discharge Data Allergies Allergy/AdvReac Type Severity Reaction Status Date / Time Bactrim Allergy Unknown PER [facility], Verified 11/24/17 11:37 NO RXN PROVIDED Penicillins Allergy Unknown PER [facility], Verified 11/19/19 11:03 NO RXN PROVIDED sulfamethoxazole Allergy Unknown PER [facility], Verified 11/19/19 11:03 NO RXN PROVIDED trimethoprim Allergy Unknown PER [facility], Verified 11/19/19 11:03 NO RXN PROVIDED azithromycin Allergy Rash Verified 11/19/19 11:03 Cipro AdvReac Mild "DELIRIUM" Verified 11/24/17 11:37 ciprofloxacin AdvReac Mild "DELIRIUM" Verified 11/19/19 11:03 Consultations 08/17/20 12:15 ED Decision to Admit Stat 11/19/19 17:30 Consult Cardiology Routine Consult Case Management - Discharge Planning Routine 11/21/19 09:16 Consult Hand Tapper Routine 11/22/19 09:14 Consult Palliative Care Routine 11/26/19 14:57 Consult Case Management - Discharge Planning Routine Consult Palliative Care Routine Ordered Studies 11/19/19 11:52 CT head/brain wo con Stat Hospital Course (1) Palliative care encounter: (2) Sepsis: COMFORT CARE MEASURES only status -Meet sepsis criteria with tachycardia, leukocytosis with elevated lactate, Possible related to aspiration pneumonia and bacteremia, CXR showed bibasilar opacities, likely representing compressive atelectasis although a superimposed infectious/inflammatory process cannot be excluded -Blood cx positive for gram positive cocci in clusters but this results as Coag neg staph not lugdunensis -repeat blood culture sent on 11/20/2019 with no growth to date -continue IV ceftriaxone and Flagyl and Doxycycline for now 11/21/2019 updates: Patient had hypoglycemic episode while on IV fluids with dextrose this AM. Then patient lost EJ line of the neck for IV access. ICU physician was requested to assess in case of need for central line. So far, have been able to avoid a central line at this time as patient now have left foot peripheral IV access, 2 peripheral IV access in right upper extremity, alejo placed, Coresafe nasal feeding tube with patient's daughter allowing for trial of NG tube feeding however the Coresafe later failed to flush and had to be removed. Daughter affirmed with medical doctor of full code status and while tube feedings are allowed on temporary basis that patient and family would not want PEG tube as a shelter way to feed 11/22/2019: NG tube could not be replaced overnight. serum glucose 70 in the AM. IV fluids with dextrose started. The IV access of the right arm and left foot are in place. Reviewed with nurse that patient's wound care notes of "Pt's buttocks and sacrum have healed ulcerations and are very macerated." Patient more awake and alert today. She is able to answer questions and denies acute pain. patient is awaiting to be seen by speech and swallow services. cardiology consult following the patient requested palliative care to follow the patient and engage further with her family members on goals of care. discussed with patient's daughter Farzaneh with Dr. Cast from palliative care with main decisions so far to continue to monitor patient off NG tube because of concern for injury to place NG tube in a patient without swallowing reflex, patient's daughter affirms no PEG tube placement and would like more time for further speech and swallow assessments, allows for continued IV fluids with dextrose at this time, understands that at the time patient not ready for oral medications including coumadin 11/23/2019: Patient not in acute distress. she remains on supplementary oxygen. peripheral IVs remain working. Discussed with nurse and rn field case manager that patient's daughter wishes further speech and swallow assessments based on 11/22/2019 discussions with palliative care and daughter. 11/24/2019: In reviewing the patient's lung X rays of pleural effusions and increasingly elevated BNP (from around 9800 on 11/19/2019 to around 15,000 by 11/24/2019), have called patient's daughter Farzaneh on the telephone that furthering IV hydration may put patient at risk or worsen respiratory function. Patient's daughter Wanda arrives to hospital and we discussed concerns of fluid overload leading to respiratory distress or failure of the patient if IV fluids with dextrose to be resumed and at the same time noting that patient is high aspiration if she eats by mouth. Code Status was also discussed. Diogenes requests that she needs more time to discuss with other family member (sister who has Down Syndrome) and would like at this time to maintain full code status and maintain IV fluids with dextrose in the interim for hydration and nutrition. Nurse informed and IV fluids to be resumed as 50 cc perhour of D5 1/2 normal saline 11/25/2019: Patient has at this time 1 available peripheral IV access of the left foot, serum phosphorous again low as 1.6 on 11/24/201 and additional IV replacement ordered and to be given when additional IV access can be evaluated. Patient continues to be on supplemental oxygen. She denies acute symptoms and shakes her head as to no acute symptoms. Farzaneh arrived in evening with sister with Down Syndrome. discussed with Farzaneh again or poor overall prognosis of patient, but Farzaneh reports that her sister did not want to hear that their mother not doing well. Patient remains full code and to continue the IV fluids and medications 11/26/2019: seen and examine patient this AM, she has blood drawn and labs are pending. patient awake but very run down in appearance. when asked how she was feeling, patient said "I don't know" when asked if she was in pain, patient said no. However, patient has multiple ecchymosis and some hand swelling from blood draws and previous attempts for IV line access and replacements. Will follow the labs. Speech and swallow services to see patient but it is doubtful that patient can pass the swallowing test especially in this deconditioned state. -COMFORT CARE MEASURES only status Dr. Cast from palliative care with hospitalist Dr. Barajas met with patient and patient's daughter Wanda. Patient could not participate in speech and swallow assessment because of weakness. Patient's daughter Wanda agrees for comfort care measures and plans for home hospice. Code Status was changed to DNR/DNI as accordance with patient's daughter permission Date of : 11/27/19 Time of : 05:[address] Mcnulty that "Confirmation of : no pulse, no respirations, no heart sounds and pupils fixed and dilated" Patient was comfort care measures prior to time of Aspiration pneumonia: Dysphagia -admission CXR showed bibasilar opacities, likely representing compressive atelectasis although a superimposed infectious/inflammatory process cannot be excluded -she initially failed the bedside swallow test -On IV ceftriaxone and Flagyl and Doxycycline -11/22/2019: As per speech and swallow therapist message to hospitalist that the that patient "has no functional swallow reflex. She is not appropriate for any p.o. intake. Even had aspiration event with ice chip." -hospital course course as above Hypoxia: -Secondary to poss aspiration pneumonia, was given antibiotics and supplementary oxygen on this hospital stay Acute metabolic encephalopathy: -Mostly related to sepsis and hypoxia with underlying dementia -admission CT head showed no finding Supratherapeutic INR (on admission) Chronic atrial fibrillation: -INR on admission 6.5, No sign of bleeding, Received Vit K 2.5 IV in the ER. -coumadin was held because of dysphagia on this admission and because of concern for needing central line access that patient was not on systemic blood thinners prior to COMFORT CARE MEASURES status Elevated troponin: -Mostly related to sepsis and hypoxia -Troponin on admission 0.157, then peaked to 0.410 then trended down to 0.393 -Case discussed with cardio that recommended conservative management. The 2019 health outcomes liaison assessment that "Minimal troponin elevation and slight EKG changes in the setting of hypoxia due to aspiration pneumonia. I do not believe this represents an acute ischemic event" A 2D echocardiogram performed 11/20/2019 did not find any wall motion abnormalities DMII (diabetes mellitus, type 2) CKD (chronic kidney disease) stage IV: Hypophosphatemia -Most recent Hba1c 5.1 -was treated for hypoglycemia in the hospital when she was on IV fluids with dextrose and had IV fluids and serum electrolytes prior to COMFORT CARE MEASURES Hypothyroidism H/O: stroke with residual effects Dementia Depression: -history of stroke 2 years ago with subsequent dementia -this admission CT head showed no acute finding -statin and coumadin and home dose citalopram were held on this admission because of dysphagia Total Time Total Time Spent Total Time Spent (In Minutes): 20 Total Time Includes: Examination of the Patient and Communication With Other Providers Discharge Plan Discharge Items Patient Disposition: Discharge Diagnosis: Sepsis Aspiration pneumonia Hypoxia Secondary to aspiration pneumonia Dysphagia Acute metabolic encephalopathy History of stroke in the past, dementia Chronic atrial fibrillation Supratherapeutic INR on admission Elevated troponin on admission Hypophosphatemia Hypothyroidism diabetes mellitus type 2 COMFORT CARE MEASURES only status Addtl Attending Provider Instructions: Date of : 11/27/19 Time of : 05:[address] Mcnulty that "Confirmation of : no pulse, no respirations, no heart sounds and pupils fixed and dilated" Patient was comfort care measures prior to time of
== END 2019-11-27 08:57 | disposition expired | DRG 871 ==
LOC: ED 09:47 → 2E 13:05 → SUATTDRO 13:05 → 2E 16:09 → 2W 11-26 15:09